=== PATIENT | male | born 1960 | race African-American/Black ===

== ENCOUNTER → 2016-05-12 | Outpatient (CLI) | payer OTHER ==
[2015-08-19 13:15] VITALS: BP 142/94
[~2016-05-12] MED LIST: GABA-586 PO; INSU100I17 SQ; INSU100I27 SQ; INSU100V13 SQ; LISI-334 PO; LISI10TA2 PO; METF500T PO; OXYC-323 PO
--- NOTE | 2016-05-12 15:26 | RAD ---
Right foot, 3 views, 05/12/2016: History: Foot pain There is moderate patchy bony demineralization. No fracture or destructive bony lesion is seen. There are mild scattered degenerative changes. IMPRESSION: 1. Demineralization. 2. No acute bony abnormality is detected.
== END | disposition home or self-care (01) ==
LOC: RAD 10:56
PROVIDERS: ATTEND Nurse Practitioner
DX: M81.8 Other osteoporosis without current pathological fracture (principal)
CPT/HCPCS: 73630

== ENCOUNTER → 2016-06-15 | Day surgery (SDC) | payer OTHER ==
[~2016-06-15] MED LIST changes: +IV RINGERS,LACTATED 1000ML 1,000 ML IV SCH; +LIDOCAINE 2% PF Vial for OR 5 ML VIAL. ONE; +PROPOFOL 20 ML IV ONE
--- NOTE | 2016-06-15 08:55 | PDOC1 ---
HISTORY & PHYSICAL H&P Zeferino Huang [id number] 1960 06/02/2016 03:30 PM 04/12 [place] [employer] [facility], [facility] OUR PATIENTS COME FIRST [address] [place] [address] Ph. [phone] Patient: Zeferino Huang Date of : 1960 Date: 06/02/2016 3:30 PM Visit Type: Consult This 55 year old male presents for Hepatitis C and Screening colonoscopy. History of Present Illness: 1. Hepatitis C Patient has been out of penitentiary for 2 yrs. He was told that he has hepatitis C. He head elevated LFT in April but in May his AST has been normal. He has history of drug abuse before he was in the penitentiary but use to take cocaine and Marijuana. No IV drug abuse. No alcohol abuse. Has diabetes. 2. Screening colonoscopy No prior screening. Denies risk factors. Pertinent negatives include abdominal pain, change in bowel habits, change in stool caliber, constipation, decreased appetite, diarrhea, melena, nausea, rectal bleeding, vomiting, weight gain and weight loss. Additional information: No family history of colon cancer , No family history of Crohn's/colitis and No NSAID/ASA use. PROBLEM LIST: Problem Description Onset Date Chronic Notes Hypertension 06/02/2016 Y PAST MEDICAL/SURGICAL HISTORY (Detailed) Disease/disorder Onset Date Management Date Comments Hernia repair 09/19/2015 Diabetes type 2 1998 Hypertension 11/2014 Medications (Active): Started Medication Directions Instruction Stopped 05/29/2016 gabapentin 300 mg capsule take 1 capsule by oral route at bedtime 04/27/2016 Levemir FlexTouch 100 unit/mL (3 mL) subcutaneous insulin pen inject 14 units by subcutaneous route per prescriber's instructions. 04/27/2016 lisinopril 5 mg tablet take 1 tablet by oral route every day 04/27/2016 metformin 500 mg tablet take 1 tablet by oral route 2 times every day with morning and evening meals 04/27/2016 Novolog Flexpen 100 unit/mL subcutaneous inject 4 units by subcutaneous route three times a day before meals 04/28/2016 Pen Needle 31 gauge x 1/4" insulin injection 4 times daily 05/29/2016 True Metrix Glucose Test Strip check blood sugar tid as instructed E11.22 DM II not controlled insulin 05/29/2016 Ultra Thin Lancets 31 gauge check BS three times daily as instructed True Metrix Glucose machine Allergies: Ingredient Reaction Medication Name Comment NO KNOWN ALLERGIES REVIEW OF SYSTEMS System Neg/Pos Details Constitutional Negative Chills, fever, malaise, weight gain and weight loss. ENMT Negative Sore throat. Eyes Negative Double vision. Respiratory Negative Dyspnea and wheezing. Cardio Negative Chest pain and irregular heartbeat/palpitations. GI Positive See HPI. GI Negative Abdominal pain, change in bowel habits, change in stool caliber, constipation, decreased appetite, diarrhea, melena, nausea, see HPI, rectal bleeding and vomiting. Negative Dysuria and hematuria. Endocrine Negative Cold intolerance and heat intolerance. Psych Negative Anxiety. Integumentary Negative Hives and rash. MS Negative Joint pain. Gen/Lymph Negative Easy bleeding and easy bruising. Allergic/Immuno Negative Food allergies. VITAL SIGNS Time BP mm/Hg Pulse /min Resp /min Temp F Ht ft Ht in Ht cm Wt lb Wt kg BMI kg/ m2 BSA m2 O2 Sat% 3:53 PM 132/78 110 98.1 0.0 70.00 177.80 145.20 65.862 20.83 98 Time Measured by 3:53 PM Katy Gary PHYSICAL EXAM: Exam Findings Details Constitutional Normal Well developed. Eyes Normal Conjunctiva - Right: Normal, Left: Normal. Sclera - Right: Normal, Left: Normal. Nasopharynx Normal Lips/teeth/gums - Normal. Neck Exam Normal Inspection - Normal. Thyroid gland - Normal. Respiratory Normal Inspection - Normal. Auscultation - Normal. Cardiovascular Normal Regular rate and rhythm. No murmurs, gallops, or rubs. Vascular Normal Pulses - Carotids: Normal, Femoral: Normal, Dorsalis pedis: Normal. Abdomen Normal Inspection - Normal. Anterior palpation - No guarding. No abdominal tenderness. No hepatic enlargement. No splenic enlargement. No hernia. No ascites. Skin Normal Inspection - Normal. Extremity Normal No edema. Psychiatric * Oriented to time, place, person and situation. Psychiatric Normal Appropriate mood and effect. The patient was checked out at 4:00 PM by Katy Gary. Assessment/Plan # Detail Type Description 1. Assessment Hep C w/o coma, chronic (B18.2). Patient Plan AFP, Hepatitis profile. HepC viral load and genotype. Fibrosure, Abdominal sonogram. Plan Orders AFP, Fibrosure today, HCV Genotype today, HCV Quant PCR today , HCV Quant-PCR and Hepatitis Profile Acute to be performed today. Further diagnostic evaluations ordered today include(s) Ultrasound exam of abdomen ( complete) to be performed today. He is to schedule a follow-up visit with Analia Valentine MD upon completion of work-up 2. Assessment Screening for colon cancer (Z12.11). Patient Plan schedule colonoscopy at [facility] Plan Orders Further diagnostic evaluations ordered today include(s) Colonoscopy to be performed today. Electronically signed by: Analia Valentine MD 06/03/2016 12:34 PM Document generated by: Analia Valentine 06/03/2016 12:34 PM Felton Smith MD, Family Practice; Leonid Gudino MD Internal Medicine; Mariana Louis MD, Internal Medicine; Kasey Valentine MD Internal Medicine; Analia Valentine MD, Gastroenterology; Scot Caro MD, Rheumatology, S. Roland Jo, Physical Medicine/Rehab JNicky Delvalle APRN ------ 06/15/16 Patient seen and examined. No change in H&P. ANALIA VALENTINE MD Jun 15, 2016 08:55
--- NOTE | 2016-06-15 10:09 | PDOC4 ---
GI OP Report - Dr. Wei Date/Time DATE: 06/15/16 TIME: 10:08 Attending Physician Cortez Wei MD Referring Physician Indications Screening for colorectal malignant neoplasm Pre-Op See the Anesthesia note for documentation of the administered medications Procedures Colonoscopy Findings - Stool in the sigmoid colon, in the descending colon, at the splenic flexure, in the transverse colon and at the hepatic flexure. - The examination was otherwise normal on direct and retroflexion views. - No specimens collected. Plan - Discharge patient to home. - Patient has a contact number available for emergencies. The signs and symptoms of potential delayed complications were discussed with the patient. Return to normal activities tomorrow. Written discharge instructions were provided to the patient. - Resume regular diet. - Continue present medications. - Repeat colonoscopy in 10 years for surveillance. - Return to my office as needed. CORTEZ WEI MD Jun 15, 2016 10:09
[2016-06-15 10:17] VITALS: BP 120/89
== END | disposition home or self-care (01) ==
LOC: ENDOS 07:42
PROVIDERS: ATTEND Internal Medicine Gastroenterology
DX: Z12.11 Encounter for screening for malignant neoplasm of colon (principal); I10 Essential (primary) hypertension; E11.9 Type 2 diabetes mellitus without complications; Z72.89 Other problems related to lifestyle
CPT/HCPCS: 45378; J2704

== ENCOUNTER → 2016-06-23 | Outpatient (CLI) | payer OTHER ==
[2016-06-15 10:17] VITALS: BP 120/89
[~2016-06-23] MED LIST changes: -IV RINGERS,LACTATED 1000ML 1,000 ML IV SCH; -LIDOCAINE 2% PF Vial for OR 5 ML VIAL. ONE; -PROPOFOL 20 ML IV ONE
--- NOTE | 2016-06-23 13:26 | RAD ---
Indication: Hepatitis C. Cholelithiasis. Possible cholecystitis on prior ultrasound. Technique: Ultrasound of the abdomen was performed. Most recent comparison available at this institution is a CT from August 15, 2015 and ultrasound from November 20, 2014. Findings: Visualized pancreas is unremarkable. Aorta is normal caliber. IVC is patent. Liver is normal in size and mildly increased in echogenicity. There is cholelithiasis, 2 large stones including one nonmobile stone near the neck. Gallbladder wall is upper limits of normal in size, 3 mm; there is no pericholecystic fluid. Sonographic Brock sign is reported as negative. Common bile duct is mildly prominent at 7 mm, can be within normal limits in a patient of this age. Kidneys are without hydronephrosis or mass. Spleen is not enlarged. Impression: 1. Cholelithiasis without secondary findings to suggest cholecystitis. If further imaging is warranted, consider hepatobiliary scintigraphy. 2. Mild fatty infiltration of the liver.
== END | disposition home or self-care (01) ==
LOC: US 12:36
PROVIDERS: ATTEND Internal Medicine Gastroenterology
DX: B19.20 Unspecified viral hepatitis C without hepatic coma (principal); K80.20 Calculus of gallbladder without cholecystitis without obstruction; K76.0 Fatty (change of) liver, not elsewhere classified
CPT/HCPCS: 76700

== ENCOUNTER → 2016-07-30 | Outpatient (CLI) | payer OTHER ==
[2016-06-15 10:17] VITALS: BP 120/89
== END | disposition home or self-care (01) ==
LOC: PMGWOUND 10:42
PROVIDERS: ATTEND Emergency Medicine Undersea and Hyperbaric Medicine
DX: E11.621 Type 2 diabetes mellitus with foot ulcer (principal); L97.512 Non-pressure chronic ulcer of other part of right foot with fat layer exposed; E11.40 Type 2 diabetes mellitus with diabetic neuropathy, unspecified; Z72.89 Other problems related to lifestyle
CPT/HCPCS: 11042

== ENCOUNTER → 2016-08-04 | Outpatient (CLI) | payer OTHER ==
[2016-06-15 10:17] VITALS: BP 120/89
== END | disposition home or self-care (01) ==
LOC: PMGWOUND 08:43
PROVIDERS: ATTEND Emergency Medicine Undersea and Hyperbaric Medicine
DX: E11.621 Type 2 diabetes mellitus with foot ulcer (principal); L97.511 Non-pressure chronic ulcer of other part of right foot limited to breakdown of skin; E11.40 Type 2 diabetes mellitus with diabetic neuropathy, unspecified; I10 Essential (primary) hypertension; Z72.89 Other problems related to lifestyle
CPT/HCPCS: 11042

== ENCOUNTER → 2016-08-07 | Outpatient (CLI) | payer OTHER ==
[2016-06-15 10:17] VITALS: BP 120/89
== END | disposition home or self-care (01) ==
LOC: PMGWOUND 11:37
PROVIDERS: ATTEND Preventive Medicine Undersea and Hyperbaric Medicine
DX: E11.621 Type 2 diabetes mellitus with foot ulcer (principal); L97.511 Non-pressure chronic ulcer of other part of right foot limited to breakdown of skin; E11.40 Type 2 diabetes mellitus with diabetic neuropathy, unspecified; I10 Essential (primary) hypertension; Z72.89 Other problems related to lifestyle
CPT/HCPCS: 29445

== ENCOUNTER → 2016-08-13 | Outpatient (CLI) | payer OTHER ==
[2016-06-15 10:17] VITALS: BP 120/89
== END | disposition home or self-care (01) ==
LOC: PMGWOUND 09:39
PROVIDERS: ATTEND Emergency Medicine Undersea and Hyperbaric Medicine
DX: E11.621 Type 2 diabetes mellitus with foot ulcer (principal); L97.512 Non-pressure chronic ulcer of other part of right foot with fat layer exposed; E11.40 Type 2 diabetes mellitus with diabetic neuropathy, unspecified; Z72.89 Other problems related to lifestyle
CPT/HCPCS: 11042; 29445

== ENCOUNTER → 2016-08-18 | Outpatient (CLI) | payer OTHER ==
[2016-06-15 10:17] VITALS: BP 120/89
== END | disposition home or self-care (01) ==
LOC: PMGWOUND 10:15
PROVIDERS: ATTEND Emergency Medicine Undersea and Hyperbaric Medicine
DX: E11.621 Type 2 diabetes mellitus with foot ulcer (principal); L97.512 Non-pressure chronic ulcer of other part of right foot with fat layer exposed; E11.40 Type 2 diabetes mellitus with diabetic neuropathy, unspecified; I10 Essential (primary) hypertension; Z72.89 Other problems related to lifestyle; Z86.19 Personal history of other infectious and parasitic diseases
CPT/HCPCS: 99214

== ENCOUNTER → 2016-08-21 | Outpatient (CLI) | payer OTHER ==
[2016-06-15 10:17] VITALS: BP 120/89
== END | disposition home or self-care (01) ==
LOC: PMGWOUND 09:01
PROVIDERS: ATTEND Preventive Medicine Undersea and Hyperbaric Medicine
DX: E11.621 Type 2 diabetes mellitus with foot ulcer (principal); L97.512 Non-pressure chronic ulcer of other part of right foot with fat layer exposed; E11.40 Type 2 diabetes mellitus with diabetic neuropathy, unspecified; I10 Essential (primary) hypertension; Z72.89 Other problems related to lifestyle
CPT/HCPCS: 99214

== ENCOUNTER → 2016-08-25 | Outpatient (CLI) | payer OTHER ==
[2016-06-15 10:17] VITALS: BP 120/89
== END | disposition home or self-care (01) ==
LOC: PMGWOUND 10:08
PROVIDERS: ATTEND Emergency Medicine Undersea and Hyperbaric Medicine
DX: E11.621 Type 2 diabetes mellitus with foot ulcer (principal); L97.511 Non-pressure chronic ulcer of other part of right foot limited to breakdown of skin; E11.40 Type 2 diabetes mellitus with diabetic neuropathy, unspecified; Z72.89 Other problems related to lifestyle
CPT/HCPCS: 11042

== ENCOUNTER → 2016-09-01 | Outpatient (CLI) | payer OTHER ==
[2016-06-15 10:17] VITALS: BP 120/89
== END | disposition home or self-care (01) ==
LOC: PMGWOUND 09:39
PROVIDERS: ATTEND Emergency Medicine Undersea and Hyperbaric Medicine
DX: E11.621 Type 2 diabetes mellitus with foot ulcer (principal); L97.512 Non-pressure chronic ulcer of other part of right foot with fat layer exposed; I10 Essential (primary) hypertension; E11.40 Type 2 diabetes mellitus with diabetic neuropathy, unspecified; Z72.89 Other problems related to lifestyle
CPT/HCPCS: 11042

== ENCOUNTER → 2016-09-04 | Outpatient (CLI) | payer OTHER ==
[2016-06-15 10:17] VITALS: BP 120/89
== END | disposition home or self-care (01) ==
LOC: PMGWOUND 08:43
PROVIDERS: ATTEND Preventive Medicine Undersea and Hyperbaric Medicine
DX: E11.621 Type 2 diabetes mellitus with foot ulcer (principal); L97.511 Non-pressure chronic ulcer of other part of right foot limited to breakdown of skin; E11.40 Type 2 diabetes mellitus with diabetic neuropathy, unspecified; Z72.89 Other problems related to lifestyle
CPT/HCPCS: 87071; 87075; 87205; 99214

== ENCOUNTER → 2016-09-08 | Outpatient (CLI) | payer OTHER ==
[2016-06-15 10:17] VITALS: BP 120/89
== END | disposition home or self-care (01) ==
LOC: PMGWOUND 11:09
PROVIDERS: ATTEND Emergency Medicine Undersea and Hyperbaric Medicine
DX: E11.621 Type 2 diabetes mellitus with foot ulcer (principal); L97.512 Non-pressure chronic ulcer of other part of right foot with fat layer exposed; E11.40 Type 2 diabetes mellitus with diabetic neuropathy, unspecified; I10 Essential (primary) hypertension; Z72.89 Other problems related to lifestyle
CPT/HCPCS: 11042

== ENCOUNTER → 2016-09-11 | Outpatient (CLI) | payer OTHER ==
[2016-06-15 10:17] VITALS: BP 120/89
== END | disposition home or self-care (01) ==
LOC: PMGWOUND 10:06
PROVIDERS: ATTEND Preventive Medicine Undersea and Hyperbaric Medicine
DX: E11.621 Type 2 diabetes mellitus with foot ulcer (principal); L97.512 Non-pressure chronic ulcer of other part of right foot with fat layer exposed; I10 Essential (primary) hypertension; E11.40 Type 2 diabetes mellitus with diabetic neuropathy, unspecified; Z72.89 Other problems related to lifestyle
CPT/HCPCS: 11042; 11045

== ENCOUNTER → 2016-09-15 | Outpatient (CLI) | payer OTHER ==
[2016-06-15 10:17] VITALS: BP 120/89
== END | disposition home or self-care (01) ==
LOC: PMGWOUND 12:00
PROVIDERS: ATTEND Emergency Medicine Undersea and Hyperbaric Medicine
DX: E11.621 Type 2 diabetes mellitus with foot ulcer (principal); L97.512 Non-pressure chronic ulcer of other part of right foot with fat layer exposed; I10 Essential (primary) hypertension; E11.40 Type 2 diabetes mellitus with diabetic neuropathy, unspecified; Z72.89 Other problems related to lifestyle
CPT/HCPCS: 99214

== ENCOUNTER → 2016-09-22 | Outpatient (CLI) | payer OTHER ==
[2016-06-15 10:17] VITALS: BP 120/89
== END | disposition home or self-care (01) ==
LOC: PMGWOUND 10:17
PROVIDERS: ATTEND Emergency Medicine Undersea and Hyperbaric Medicine
DX: E11.621 Type 2 diabetes mellitus with foot ulcer (principal); L97.512 Non-pressure chronic ulcer of other part of right foot with fat layer exposed; I10 Essential (primary) hypertension; E11.40 Type 2 diabetes mellitus with diabetic neuropathy, unspecified; Z72.89 Other problems related to lifestyle
CPT/HCPCS: 11042

== ENCOUNTER → 2016-09-29 | Outpatient (CLI) | payer OTHER ==
[2016-06-15 10:17] VITALS: BP 120/89
== END | disposition home or self-care (01) ==
LOC: PMGWOUND 10:30
PROVIDERS: ATTEND Emergency Medicine Undersea and Hyperbaric Medicine
DX: E11.621 Type 2 diabetes mellitus with foot ulcer (principal); L97.512 Non-pressure chronic ulcer of other part of right foot with fat layer exposed; E11.40 Type 2 diabetes mellitus with diabetic neuropathy, unspecified; I10 Essential (primary) hypertension; Z72.89 Other problems related to lifestyle
CPT/HCPCS: 11042

== ENCOUNTER → 2017-01-07 | Outpatient (CLI) | payer OTHER ==
[2016-06-15 10:17] VITALS: BP 120/89
--- NOTE | 2017-01-07 11:05 | RAD ---
EXAM: Right foot 3 views. HISTORY: Nonhealing wound. COMPARISON: 05/12/2016. FINDINGS: There is no soft tissue gas. There is no cortical erosion suggestive of acute osteomyelitis. No fractures are identified. Osteopenia is at least mild. Joint spaces and alignment are maintained. IMPRESSION: 1. No evidence of acute osteomyelitis by radiographs.
== END | disposition home or self-care (01) ==
LOC: PMGWOUND 09:33
PROVIDERS: ATTEND Emergency Medicine Undersea and Hyperbaric Medicine
DX: E11.621 Type 2 diabetes mellitus with foot ulcer (principal); L97.512 Non-pressure chronic ulcer of other part of right foot with fat layer exposed; I10 Essential (primary) hypertension; E11.40 Type 2 diabetes mellitus with diabetic neuropathy, unspecified; Z72.89 Other problems related to lifestyle; Z86.19 Personal history of other infectious and parasitic diseases
CPT/HCPCS: 11042; 73630

== ENCOUNTER → 2017-01-11 | Outpatient (CLI) | payer OTHER ==
[2016-06-15 10:17] VITALS: BP 120/89
== END | disposition home or self-care (01) ==
LOC: PMGWOUND 14:47
PROVIDERS: ATTEND Emergency Medicine Undersea and Hyperbaric Medicine
DX: E11.621 Type 2 diabetes mellitus with foot ulcer (principal); L97.512 Non-pressure chronic ulcer of other part of right foot with fat layer exposed; E11.40 Type 2 diabetes mellitus with diabetic neuropathy, unspecified; I10 Essential (primary) hypertension; Z86.19 Personal history of other infectious and parasitic diseases; Z72.89 Other problems related to lifestyle
CPT/HCPCS: 11042

== ENCOUNTER → 2017-01-14 | Outpatient (CLI) | payer OTHER ==
[2016-06-15 10:17] VITALS: BP 120/89
== END | disposition home or self-care (01) ==
LOC: PMGWOUND 09:19
PROVIDERS: ATTEND Emergency Medicine Undersea and Hyperbaric Medicine
DX: E11.621 Type 2 diabetes mellitus with foot ulcer (principal); L97.512 Non-pressure chronic ulcer of other part of right foot with fat layer exposed; E11.40 Type 2 diabetes mellitus with diabetic neuropathy, unspecified; Z72.89 Other problems related to lifestyle
CPT/HCPCS: 99214

== ENCOUNTER → 2017-01-19 | Outpatient (CLI) | payer OTHER ==
[2016-06-15 10:17] VITALS: BP 120/89
== END | disposition home or self-care (01) ==
LOC: PMGWOUND 09:23
PROVIDERS: ATTEND Emergency Medicine Undersea and Hyperbaric Medicine
DX: E11.621 Type 2 diabetes mellitus with foot ulcer (principal); L97.512 Non-pressure chronic ulcer of other part of right foot with fat layer exposed; E11.40 Type 2 diabetes mellitus with diabetic neuropathy, unspecified; I10 Essential (primary) hypertension; Z72.89 Other problems related to lifestyle
CPT/HCPCS: 11042

== ENCOUNTER → 2017-01-22 | Outpatient (CLI) | payer OTHER ==
[2016-06-15 10:17] VITALS: BP 120/89
== END | disposition home or self-care (01) ==
LOC: PMGWOUND 09:32
PROVIDERS: ATTEND Preventive Medicine Undersea and Hyperbaric Medicine
DX: E11.621 Type 2 diabetes mellitus with foot ulcer (principal); L97.512 Non-pressure chronic ulcer of other part of right foot with fat layer exposed; E11.40 Type 2 diabetes mellitus with diabetic neuropathy, unspecified; Z72.89 Other problems related to lifestyle; I10 Essential (primary) hypertension
CPT/HCPCS: 99213

== ENCOUNTER → 2017-01-26 | Outpatient (CLI) | payer OTHER ==
[2016-06-15 10:17] VITALS: BP 120/89
== END | disposition home or self-care (01) ==
LOC: PMGWOUND 09:34
PROVIDERS: ATTEND Emergency Medicine Undersea and Hyperbaric Medicine
DX: E11.621 Type 2 diabetes mellitus with foot ulcer (principal); L97.512 Non-pressure chronic ulcer of other part of right foot with fat layer exposed; I10 Essential (primary) hypertension; E11.40 Type 2 diabetes mellitus with diabetic neuropathy, unspecified; Z72.89 Other problems related to lifestyle
CPT/HCPCS: 11042; 82962

== ENCOUNTER → 2017-01-28 | Outpatient (CLI) | payer OTHER ==
[2016-06-15 10:17] VITALS: BP 120/89
== END | disposition home or self-care (01) ==
LOC: PMGWOUND 12:04
PROVIDERS: ATTEND Emergency Medicine Undersea and Hyperbaric Medicine
DX: E11.621 Type 2 diabetes mellitus with foot ulcer (principal); L97.512 Non-pressure chronic ulcer of other part of right foot with fat layer exposed; E11.40 Type 2 diabetes mellitus with diabetic neuropathy, unspecified; Z72.89 Other problems related to lifestyle
CPT/HCPCS: 99214

== ENCOUNTER → 2017-02-02 | Outpatient (CLI) | payer OTHER ==
[2016-06-15 10:17] VITALS: BP 120/89
== END | disposition home or self-care (01) ==
LOC: PMGWOUND 09:42
PROVIDERS: ATTEND Emergency Medicine Undersea and Hyperbaric Medicine
DX: E11.621 Type 2 diabetes mellitus with foot ulcer (principal); L97.512 Non-pressure chronic ulcer of other part of right foot with fat layer exposed; E11.40 Type 2 diabetes mellitus with diabetic neuropathy, unspecified; I10 Essential (primary) hypertension; Z72.89 Other problems related to lifestyle
CPT/HCPCS: 11042

== ENCOUNTER → 2017-02-04 | Outpatient (CLI) | payer OTHER ==
[2016-06-15 10:17] VITALS: BP 120/89
== END | disposition home or self-care (01) ==
LOC: PMGWOUND 09:35
PROVIDERS: ATTEND Emergency Medicine Undersea and Hyperbaric Medicine
DX: E11.621 Type 2 diabetes mellitus with foot ulcer (principal); L97.512 Non-pressure chronic ulcer of other part of right foot with fat layer exposed; I10 Essential (primary) hypertension; E11.40 Type 2 diabetes mellitus with diabetic neuropathy, unspecified; Z72.89 Other problems related to lifestyle
CPT/HCPCS: 99214

== ENCOUNTER → 2017-02-09 | Outpatient (CLI) | payer OTHER ==
[2016-06-15 10:17] VITALS: BP 120/89
== END | disposition home or self-care (01) ==
LOC: PMGWOUND 09:10
PROVIDERS: ATTEND Emergency Medicine Undersea and Hyperbaric Medicine
DX: E11.621 Type 2 diabetes mellitus with foot ulcer (principal); L97.512 Non-pressure chronic ulcer of other part of right foot with fat layer exposed; I10 Essential (primary) hypertension; E11.40 Type 2 diabetes mellitus with diabetic neuropathy, unspecified; Z72.89 Other problems related to lifestyle
CPT/HCPCS: 97597

== ENCOUNTER → 2017-02-22 | Outpatient (CLI) | payer OTHER ==
[2016-06-15 10:17] VITALS: BP 120/89
== END | disposition home or self-care (01) ==
LOC: PMGWOUND 09:24
PROVIDERS: ATTEND Emergency Medicine Undersea and Hyperbaric Medicine
DX: E11.621 Type 2 diabetes mellitus with foot ulcer (principal); L97.512 Non-pressure chronic ulcer of other part of right foot with fat layer exposed; E11.40 Type 2 diabetes mellitus with diabetic neuropathy, unspecified; I10 Essential (primary) hypertension; Z72.89 Other problems related to lifestyle
CPT/HCPCS: 11042; 29445

== ENCOUNTER → 2017-02-25 | Outpatient (CLI) | payer OTHER ==
[2016-06-15 10:17] VITALS: BP 120/89
== END | disposition home or self-care (01) ==
LOC: PMGWOUND 08:29
PROVIDERS: ATTEND Emergency Medicine Undersea and Hyperbaric Medicine
DX: E11.621 Type 2 diabetes mellitus with foot ulcer (principal); L97.512 Non-pressure chronic ulcer of other part of right foot with fat layer exposed; I10 Essential (primary) hypertension; E11.40 Type 2 diabetes mellitus with diabetic neuropathy, unspecified; Z72.89 Other problems related to lifestyle
CPT/HCPCS: 11042; 29445

== ENCOUNTER → 2017-03-02 | Outpatient (CLI) | payer OTHER ==
[2016-06-15 10:17] VITALS: BP 120/89
== END | disposition home or self-care (01) ==
LOC: PMGWOUND 08:17
PROVIDERS: ATTEND Emergency Medicine Undersea and Hyperbaric Medicine
DX: E11.621 Type 2 diabetes mellitus with foot ulcer (principal); L97.512 Non-pressure chronic ulcer of other part of right foot with fat layer exposed; I10 Essential (primary) hypertension; E11.40 Type 2 diabetes mellitus with diabetic neuropathy, unspecified; Z72.89 Other problems related to lifestyle
CPT/HCPCS: 11042; 29445

== ENCOUNTER → 2017-03-11 | Outpatient (CLI) | payer OTHER ==
[2016-06-15 10:17] VITALS: BP 120/89
== END | disposition home or self-care (01) ==
LOC: PMGWOUND 10:53
PROVIDERS: ATTEND Emergency Medicine Undersea and Hyperbaric Medicine
DX: E11.621 Type 2 diabetes mellitus with foot ulcer (principal); L97.512 Non-pressure chronic ulcer of other part of right foot with fat layer exposed; E11.40 Type 2 diabetes mellitus with diabetic neuropathy, unspecified; I10 Essential (primary) hypertension; Z72.89 Other problems related to lifestyle
CPT/HCPCS: 29445; 97597

== ENCOUNTER → 2017-03-18 | Outpatient (CLI) | payer OTHER ==
[2016-06-15 10:17] VITALS: BP 120/89
== END | disposition home or self-care (01) ==
LOC: PMGWOUND 10:40
PROVIDERS: ATTEND Emergency Medicine Undersea and Hyperbaric Medicine
DX: E11.621 Type 2 diabetes mellitus with foot ulcer (principal); L97.512 Non-pressure chronic ulcer of other part of right foot with fat layer exposed; I10 Essential (primary) hypertension; E11.40 Type 2 diabetes mellitus with diabetic neuropathy, unspecified; Z72.89 Other problems related to lifestyle
CPT/HCPCS: 11042

== ENCOUNTER → 2017-03-23 | Outpatient (CLI) | payer OTHER ==
[2016-06-15 10:17] VITALS: BP 120/89
== END | disposition home or self-care (01) ==
LOC: PMGWOUND 09:28
PROVIDERS: ATTEND Emergency Medicine Undersea and Hyperbaric Medicine
DX: E11.621 Type 2 diabetes mellitus with foot ulcer (principal); L97.512 Non-pressure chronic ulcer of other part of right foot with fat layer exposed; E11.40 Type 2 diabetes mellitus with diabetic neuropathy, unspecified; I10 Essential (primary) hypertension; Z72.89 Other problems related to lifestyle
CPT/HCPCS: 11042

== ENCOUNTER → 2017-03-25 | Outpatient (CLI) | payer OTHER ==
[2016-06-15 10:17] VITALS: BP 120/89
== END | disposition home or self-care (01) ==
LOC: PMGWOUND 09:17
PROVIDERS: ATTEND Emergency Medicine Undersea and Hyperbaric Medicine
DX: E11.621 Type 2 diabetes mellitus with foot ulcer (principal); L97.512 Non-pressure chronic ulcer of other part of right foot with fat layer exposed; E11.40 Type 2 diabetes mellitus with diabetic neuropathy, unspecified; I10 Essential (primary) hypertension; Z72.89 Other problems related to lifestyle
CPT/HCPCS: 97597

== ENCOUNTER → 2017-03-29 | Outpatient (CLI) | payer OTHER ==
[2016-06-15 10:17] VITALS: BP 120/89
== END | disposition home or self-care (01) ==
LOC: PMGWOUND 10:01
PROVIDERS: ATTEND Emergency Medicine Undersea and Hyperbaric Medicine
DX: E11.621 Type 2 diabetes mellitus with foot ulcer (principal); L97.512 Non-pressure chronic ulcer of other part of right foot with fat layer exposed; E11.40 Type 2 diabetes mellitus with diabetic neuropathy, unspecified; I10 Essential (primary) hypertension; Z72.89 Other problems related to lifestyle
CPT/HCPCS: 99214

== ENCOUNTER → 2017-04-01 | Outpatient (CLI) | payer OTHER ==
[2016-06-15 10:17] VITALS: BP 120/89
== END | disposition home or self-care (01) ==
LOC: PMGWOUND 09:49
PROVIDERS: ATTEND Emergency Medicine Undersea and Hyperbaric Medicine
DX: E11.621 Type 2 diabetes mellitus with foot ulcer (principal); L97.512 Non-pressure chronic ulcer of other part of right foot with fat layer exposed; E11.40 Type 2 diabetes mellitus with diabetic neuropathy, unspecified; I10 Essential (primary) hypertension; Z72.89 Other problems related to lifestyle
CPT/HCPCS: 11042

== ENCOUNTER → 2017-04-08 | Outpatient (CLI) | payer OTHER | END | disposition home or self-care (01) | LOC: PMGWOUND 10:09 | DX: E11.621 Type 2 diabetes mellitus with foot ulcer (principal); L97.512 Non-pressure chronic ulcer of other part of right foot with fat layer exposed; E11.40 Type 2 diabetes mellitus with diabetic neuropathy, unspecified; I10 Essential (primary) hypertension; Z72.89 Other problems related to lifestyle | CPT/HCPCS: 97597 ==

== ENCOUNTER → 2017-04-15 | Outpatient (CLI) | payer OTHER | END | disposition home or self-care (01) | LOC: PMGWOUND 08:53 | DX: E11.621 Type 2 diabetes mellitus with foot ulcer (principal); L97.512 Non-pressure chronic ulcer of other part of right foot with fat layer exposed; E11.40 Type 2 diabetes mellitus with diabetic neuropathy, unspecified; I10 Essential (primary) hypertension; Z72.89 Other problems related to lifestyle | CPT/HCPCS: 97597 ==

== ENCOUNTER → 2017-04-19 | Outpatient (CLI) | payer OTHER | END | disposition home or self-care (01) | LOC: PMGWOUND 09:15 | DX: E11.621 Type 2 diabetes mellitus with foot ulcer (principal); L97.512 Non-pressure chronic ulcer of other part of right foot with fat layer exposed; E11.40 Type 2 diabetes mellitus with diabetic neuropathy, unspecified; I10 Essential (primary) hypertension; Z72.89 Other problems related to lifestyle | CPT/HCPCS: 99214 ==

== ENCOUNTER → 2017-04-22 | Outpatient (CLI) | payer OTHER | END | disposition home or self-care (01) | LOC: PMGWOUND 09:30 | DX: E11.621 Type 2 diabetes mellitus with foot ulcer (principal); L97.512 Non-pressure chronic ulcer of other part of right foot with fat layer exposed; E11.40 Type 2 diabetes mellitus with diabetic neuropathy, unspecified; I10 Essential (primary) hypertension; Z72.89 Other problems related to lifestyle | CPT/HCPCS: 11042 ==

== ENCOUNTER → 2017-04-26 | Outpatient (CLI) | payer OTHER | END | disposition home or self-care (01) | LOC: PMGWOUND 09:13 | DX: E11.621 Type 2 diabetes mellitus with foot ulcer (principal); L97.512 Non-pressure chronic ulcer of other part of right foot with fat layer exposed; L84 Corns and callosities; E11.40 Type 2 diabetes mellitus with diabetic neuropathy, unspecified; I10 Essential (primary) hypertension; Z72.89 Other problems related to lifestyle | CPT/HCPCS: 97597 ==

== ENCOUNTER → 2017-04-29 | Outpatient (CLI) | payer OTHER | END | disposition home or self-care (01) | LOC: PMGWOUND 09:24 | DX: E11.621 Type 2 diabetes mellitus with foot ulcer (principal); L97.512 Non-pressure chronic ulcer of other part of right foot with fat layer exposed; L84 Corns and callosities; E11.40 Type 2 diabetes mellitus with diabetic neuropathy, unspecified; I10 Essential (primary) hypertension; Z72.89 Other problems related to lifestyle | CPT/HCPCS: 99214 ==

== ENCOUNTER → 2017-05-04 | Outpatient (CLI) | payer OTHER | END | disposition home or self-care (01) | LOC: PMGWOUND 09:12 | DX: E11.621 Type 2 diabetes mellitus with foot ulcer (principal); L97.512 Non-pressure chronic ulcer of other part of right foot with fat layer exposed; L84 Corns and callosities; E11.40 Type 2 diabetes mellitus with diabetic neuropathy, unspecified; I10 Essential (primary) hypertension; Z72.89 Other problems related to lifestyle | CPT/HCPCS: 11042 ==

== ENCOUNTER → 2017-05-07 | Outpatient (CLI) | payer OTHER | END | disposition home or self-care (01) | LOC: PMGWOUND 09:12 | DX: E11.621 Type 2 diabetes mellitus with foot ulcer (principal); L97.512 Non-pressure chronic ulcer of other part of right foot with fat layer exposed; L84 Corns and callosities; E11.40 Type 2 diabetes mellitus with diabetic neuropathy, unspecified; I10 Essential (primary) hypertension; Z72.89 Other problems related to lifestyle | CPT/HCPCS: 99214 ==

== ENCOUNTER → 2017-05-11 | Outpatient (CLI) | payer OTHER | END | disposition home or self-care (01) | LOC: PMGWOUND 09:23 | DX: E11.621 Type 2 diabetes mellitus with foot ulcer (principal); L97.512 Non-pressure chronic ulcer of other part of right foot with fat layer exposed; L84 Corns and callosities; E11.40 Type 2 diabetes mellitus with diabetic neuropathy, unspecified; I10 Essential (primary) hypertension; Z72.89 Other problems related to lifestyle | CPT/HCPCS: 11042 ==

== ENCOUNTER → 2017-05-18 | Outpatient (CLI) | payer OTHER | END | disposition home or self-care (01) | LOC: PMGWOUND 10:30 | DX: E11.621 Type 2 diabetes mellitus with foot ulcer (principal); L97.512 Non-pressure chronic ulcer of other part of right foot with fat layer exposed; L84 Corns and callosities; E11.40 Type 2 diabetes mellitus with diabetic neuropathy, unspecified; I10 Essential (primary) hypertension; Z72.89 Other problems related to lifestyle | CPT/HCPCS: 11042 ==

== ENCOUNTER → 2017-05-25 | Outpatient (CLI) | payer OTHER | END | disposition home or self-care (01) | LOC: PMGWOUND 09:06 | DX: E11.621 Type 2 diabetes mellitus with foot ulcer (principal); L97.512 Non-pressure chronic ulcer of other part of right foot with fat layer exposed; E11.40 Type 2 diabetes mellitus with diabetic neuropathy, unspecified; L84 Corns and callosities; I10 Essential (primary) hypertension; Z72.89 Other problems related to lifestyle | CPT/HCPCS: 11042 ==

== ENCOUNTER → 2017-06-01 | Outpatient (CLI) | payer OTHER | END | disposition home or self-care (01) | LOC: PMGWOUND 08:35 | DX: E11.621 Type 2 diabetes mellitus with foot ulcer (principal); L84 Corns and callosities; L97.512 Non-pressure chronic ulcer of other part of right foot with fat layer exposed; E11.40 Type 2 diabetes mellitus with diabetic neuropathy, unspecified; I10 Essential (primary) hypertension; Z72.89 Other problems related to lifestyle | CPT/HCPCS: 11042 ==

== ENCOUNTER → 2017-06-08 | Outpatient (CLI) | payer OTHER | END | disposition home or self-care (01) | LOC: PMGWOUND 09:02 | DX: E11.621 Type 2 diabetes mellitus with foot ulcer (principal); L97.512 Non-pressure chronic ulcer of other part of right foot with fat layer exposed; L84 Corns and callosities; E11.40 Type 2 diabetes mellitus with diabetic neuropathy, unspecified; I10 Essential (primary) hypertension; Z72.89 Other problems related to lifestyle | CPT/HCPCS: 11042 ==

== ENCOUNTER → 2017-06-15 | Outpatient (CLI) | payer OTHER | LOC: PMGWOUND 08:50 | DX: E11.621 Type 2 diabetes mellitus with foot ulcer (principal); L97.512 Non-pressure chronic ulcer of other part of right foot with fat layer exposed; E11.40 Type 2 diabetes mellitus with diabetic neuropathy, unspecified; Z72.89 Other problems related to lifestyle | CPT/HCPCS: 11042 ==

== ENCOUNTER → 2017-06-22 | Outpatient (CLI) | payer OTHER | END | disposition home or self-care (01) | LOC: PMGWOUND 08:52 | DX: E11.621 Type 2 diabetes mellitus with foot ulcer (principal); L97.512 Non-pressure chronic ulcer of other part of right foot with fat layer exposed; E11.40 Type 2 diabetes mellitus with diabetic neuropathy, unspecified; I10 Essential (primary) hypertension; L84 Corns and callosities; Z72.89 Other problems related to lifestyle | CPT/HCPCS: 11042 ==

== ENCOUNTER → 2017-06-29 | Outpatient (CLI) | payer OTHER | END | disposition home or self-care (01) | LOC: PMGWOUND 08:50 | DX: E11.621 Type 2 diabetes mellitus with foot ulcer (principal); L97.512 Non-pressure chronic ulcer of other part of right foot with fat layer exposed; I10 Essential (primary) hypertension; E11.40 Type 2 diabetes mellitus with diabetic neuropathy, unspecified; L84 Corns and callosities | CPT/HCPCS: 97597 ==

== ENCOUNTER → 2017-07-06 | Outpatient (CLI) | payer OTHER | END | disposition home or self-care (01) | LOC: PMGWOUND 08:43 | DX: E11.621 Type 2 diabetes mellitus with foot ulcer (principal); L97.512 Non-pressure chronic ulcer of other part of right foot with fat layer exposed; I10 Essential (primary) hypertension; E11.40 Type 2 diabetes mellitus with diabetic neuropathy, unspecified; L84 Corns and callosities | CPT/HCPCS: 11042 ==

== ENCOUNTER → 2017-07-13 | Outpatient (CLI) | payer OTHER | END | disposition home or self-care (01) | LOC: PMGWOUND 08:40 | DX: E11.621 Type 2 diabetes mellitus with foot ulcer (principal); L97.512 Non-pressure chronic ulcer of other part of right foot with fat layer exposed; I10 Essential (primary) hypertension; E11.40 Type 2 diabetes mellitus with diabetic neuropathy, unspecified; L84 Corns and callosities | CPT/HCPCS: 11042 ==

== ENCOUNTER → 2017-07-20 | Outpatient (CLI) | payer OTHER | END | disposition home or self-care (01) | LOC: PMGWOUND 08:46 | DX: E11.621 Type 2 diabetes mellitus with foot ulcer (principal); L97.512 Non-pressure chronic ulcer of other part of right foot with fat layer exposed; I10 Essential (primary) hypertension; E11.40 Type 2 diabetes mellitus with diabetic neuropathy, unspecified; L84 Corns and callosities | CPT/HCPCS: 11042 ==

== ENCOUNTER → 2017-07-23 | Outpatient (CLI) | payer OTHER | END | disposition home or self-care (01) | LOC: PMGWOUND 08:49 | DX: E11.621 Type 2 diabetes mellitus with foot ulcer (principal); L97.512 Non-pressure chronic ulcer of other part of right foot with fat layer exposed; I10 Essential (primary) hypertension; E11.40 Type 2 diabetes mellitus with diabetic neuropathy, unspecified; L84 Corns and callosities | CPT/HCPCS: 99214 ==

== ENCOUNTER → 2017-07-27 | Outpatient (CLI) | payer OTHER | END | disposition home or self-care (01) | LOC: PMGWOUND 09:39 | DX: E11.621 Type 2 diabetes mellitus with foot ulcer (principal); L97.512 Non-pressure chronic ulcer of other part of right foot with fat layer exposed; I10 Essential (primary) hypertension; E11.40 Type 2 diabetes mellitus with diabetic neuropathy, unspecified; L84 Corns and callosities | CPT/HCPCS: 11042; 87071; 87075; 87186; 87205 ==

== ENCOUNTER → 2017-07-29 | Outpatient (CLI) | payer OTHER | END | disposition home or self-care (01) | LOC: PMGWOUND 08:48 | DX: E11.621 Type 2 diabetes mellitus with foot ulcer (principal); L97.512 Non-pressure chronic ulcer of other part of right foot with fat layer exposed; I10 Essential (primary) hypertension; E11.40 Type 2 diabetes mellitus with diabetic neuropathy, unspecified; L84 Corns and callosities | CPT/HCPCS: 11042; 29581 ==

== ENCOUNTER → 2017-08-02 | Outpatient (CLI) | payer OTHER | END | disposition home or self-care (01) | LOC: PMGWOUND 08:57 | DX: E11.621 Type 2 diabetes mellitus with foot ulcer (principal); L97.512 Non-pressure chronic ulcer of other part of right foot with fat layer exposed; I10 Essential (primary) hypertension; E11.40 Type 2 diabetes mellitus with diabetic neuropathy, unspecified; L84 Corns and callosities | CPT/HCPCS: 11042; 29581 ==

== ENCOUNTER → 2017-08-05 | Outpatient (CLI) | payer OTHER | END | disposition home or self-care (01) | LOC: PMGWOUND 10:11 | DX: E11.621 Type 2 diabetes mellitus with foot ulcer (principal); L97.512 Non-pressure chronic ulcer of other part of right foot with fat layer exposed; I10 Essential (primary) hypertension; E11.40 Type 2 diabetes mellitus with diabetic neuropathy, unspecified; L84 Corns and callosities | CPT/HCPCS: 10060; 11042; 87071; 87075; 87186; 87205 ==

== ENCOUNTER → 2017-08-09 | Outpatient (CLI) | payer OTHER | END | disposition home or self-care (01) | LOC: PMGWOUND 08:43 | DX: E11.621 Type 2 diabetes mellitus with foot ulcer (principal); L97.512 Non-pressure chronic ulcer of other part of right foot with fat layer exposed; I10 Essential (primary) hypertension; E11.40 Type 2 diabetes mellitus with diabetic neuropathy, unspecified; L84 Corns and callosities; M65.071 Abscess of tendon sheath, right ankle and foot | CPT/HCPCS: 11042 ==

== ENCOUNTER → 2017-08-12 | Outpatient (CLI) | payer OTHER | END | disposition home or self-care (01) | LOC: PMGWOUND 08:24 | DX: E11.621 Type 2 diabetes mellitus with foot ulcer (principal); L97.512 Non-pressure chronic ulcer of other part of right foot with fat layer exposed; M65.071 Abscess of tendon sheath, right ankle and foot; I10 Essential (primary) hypertension; E11.40 Type 2 diabetes mellitus with diabetic neuropathy, unspecified; Z72.89 Other problems related to lifestyle | CPT/HCPCS: 11042 ==

== ENCOUNTER → 2017-08-16 | Outpatient (CLI) | payer OTHER | END | disposition home or self-care (01) | LOC: PMGWOUND 09:04 | DX: E11.621 Type 2 diabetes mellitus with foot ulcer (principal); L97.512 Non-pressure chronic ulcer of other part of right foot with fat layer exposed; I10 Essential (primary) hypertension; E11.40 Type 2 diabetes mellitus with diabetic neuropathy, unspecified; Z72.89 Other problems related to lifestyle | CPT/HCPCS: 11042 ==

== ENCOUNTER → 2017-08-19 | Outpatient (CLI) | payer OTHER | END | disposition home or self-care (01) | LOC: PMGWOUND 09:30 | DX: E11.621 Type 2 diabetes mellitus with foot ulcer (principal); L97.512 Non-pressure chronic ulcer of other part of right foot with fat layer exposed; I10 Essential (primary) hypertension; E11.40 Type 2 diabetes mellitus with diabetic neuropathy, unspecified; M65.071 Abscess of tendon sheath, right ankle and foot; Z72.89 Other problems related to lifestyle | CPT/HCPCS: 97597 ==

== ENCOUNTER → 2017-08-23 | Outpatient (CLI) | payer OTHER | END | disposition home or self-care (01) | LOC: PMGWOUND 11:02 | DX: E11.621 Type 2 diabetes mellitus with foot ulcer (principal); L97.512 Non-pressure chronic ulcer of other part of right foot with fat layer exposed; I10 Essential (primary) hypertension; E11.40 Type 2 diabetes mellitus with diabetic neuropathy, unspecified; L84 Corns and callosities | CPT/HCPCS: 11042 ==

== ENCOUNTER → 2017-08-26 | Outpatient (CLI) | payer OTHER | END | disposition home or self-care (01) | LOC: PMGWOUND 09:00 | DX: E11.621 Type 2 diabetes mellitus with foot ulcer (principal); L97.512 Non-pressure chronic ulcer of other part of right foot with fat layer exposed; I10 Essential (primary) hypertension; E11.40 Type 2 diabetes mellitus with diabetic neuropathy, unspecified; L84 Corns and callosities | CPT/HCPCS: 11042 ==

== ENCOUNTER → 2017-08-30 | Outpatient (CLI) | payer OTHER | END | disposition home or self-care (01) | LOC: PMGWOUND 08:58 | DX: E11.621 Type 2 diabetes mellitus with foot ulcer (principal); L97.512 Non-pressure chronic ulcer of other part of right foot with fat layer exposed; I10 Essential (primary) hypertension; E11.40 Type 2 diabetes mellitus with diabetic neuropathy, unspecified; L84 Corns and callosities | CPT/HCPCS: 11042 ==

== ENCOUNTER → 2017-09-03 | Outpatient (CLI) | payer OTHER | END | disposition home or self-care (01) | LOC: PMGWOUND 09:10 | DX: E11.621 Type 2 diabetes mellitus with foot ulcer (principal); L97.512 Non-pressure chronic ulcer of other part of right foot with fat layer exposed; I10 Essential (primary) hypertension; E11.40 Type 2 diabetes mellitus with diabetic neuropathy, unspecified | CPT/HCPCS: 99214 ==

== ENCOUNTER → 2017-09-07 | Outpatient (CLI) | payer OTHER | END | disposition home or self-care (01) | LOC: PMGWOUND 09:35 | DX: E11.621 Type 2 diabetes mellitus with foot ulcer (principal); L97.512 Non-pressure chronic ulcer of other part of right foot with fat layer exposed; E11.40 Type 2 diabetes mellitus with diabetic neuropathy, unspecified; I10 Essential (primary) hypertension; L84 Corns and callosities | CPT/HCPCS: 11042 ==

== ENCOUNTER → 2017-09-10 | Outpatient (CLI) | payer OTHER | END | disposition home or self-care (01) | LOC: PMGWOUND 08:54 | DX: E11.621 Type 2 diabetes mellitus with foot ulcer (principal); L97.512 Non-pressure chronic ulcer of other part of right foot with fat layer exposed; E11.40 Type 2 diabetes mellitus with diabetic neuropathy, unspecified; I10 Essential (primary) hypertension; L84 Corns and callosities | CPT/HCPCS: 99213 ==

== ENCOUNTER → 2017-09-14 | Outpatient (CLI) | payer OTHER | END | disposition home or self-care (01) | LOC: PMGWOUND 08:52 | DX: E11.621 Type 2 diabetes mellitus with foot ulcer (principal); L97.512 Non-pressure chronic ulcer of other part of right foot with fat layer exposed; E11.40 Type 2 diabetes mellitus with diabetic neuropathy, unspecified; I10 Essential (primary) hypertension; L84 Corns and callosities | CPT/HCPCS: 11042 ==

== ENCOUNTER → 2017-09-21 | Outpatient (CLI) | payer OTHER | END | disposition home or self-care (01) | LOC: PMGWOUND 08:41 | DX: E11.621 Type 2 diabetes mellitus with foot ulcer (principal); L97.512 Non-pressure chronic ulcer of other part of right foot with fat layer exposed; E11.40 Type 2 diabetes mellitus with diabetic neuropathy, unspecified; I10 Essential (primary) hypertension | CPT/HCPCS: 11042 ==

== ENCOUNTER → 2017-09-28 | Outpatient (CLI) | payer OTHER | END | disposition home or self-care (01) | LOC: PMGWOUND 09:06 | DX: E11.621 Type 2 diabetes mellitus with foot ulcer (principal); L97.512 Non-pressure chronic ulcer of other part of right foot with fat layer exposed; E11.40 Type 2 diabetes mellitus with diabetic neuropathy, unspecified; I10 Essential (primary) hypertension; L84 Corns and callosities | CPT/HCPCS: 11042 ==

== ENCOUNTER → 2017-10-05 | Outpatient (CLI) | payer OTHER | END | disposition home or self-care (01) | LOC: PMGWOUND 09:03 | DX: E11.621 Type 2 diabetes mellitus with foot ulcer (principal); L97.512 Non-pressure chronic ulcer of other part of right foot with fat layer exposed; E11.40 Type 2 diabetes mellitus with diabetic neuropathy, unspecified; I10 Essential (primary) hypertension; L84 Corns and callosities | CPT/HCPCS: 11042 ==

== ENCOUNTER → 2017-10-12 | Outpatient (CLI) | payer OTHER | END | disposition home or self-care (01) | LOC: PMGWOUND 08:21 | DX: E11.621 Type 2 diabetes mellitus with foot ulcer (principal); L97.512 Non-pressure chronic ulcer of other part of right foot with fat layer exposed; E11.40 Type 2 diabetes mellitus with diabetic neuropathy, unspecified; I10 Essential (primary) hypertension; L84 Corns and callosities | CPT/HCPCS: 11042 ==

== ENCOUNTER → 2017-10-19 | Outpatient (CLI) | payer OTHER | END | disposition home or self-care (01) | LOC: PMGWOUND 09:01 | DX: E11.621 Type 2 diabetes mellitus with foot ulcer (principal); L97.512 Non-pressure chronic ulcer of other part of right foot with fat layer exposed; E11.40 Type 2 diabetes mellitus with diabetic neuropathy, unspecified; L84 Corns and callosities; I10 Essential (primary) hypertension | CPT/HCPCS: 11042 ==

== ENCOUNTER → 2017-10-26 | Outpatient (CLI) | payer OTHER | END | disposition home or self-care (01) | LOC: PMGWOUND 09:04 | DX: E11.621 Type 2 diabetes mellitus with foot ulcer (principal); L97.512 Non-pressure chronic ulcer of other part of right foot with fat layer exposed; I10 Essential (primary) hypertension; E11.21 Type 2 diabetes mellitus with diabetic nephropathy; L84 Corns and callosities | CPT/HCPCS: 11042 ==

== ENCOUNTER → 2017-11-02 | Outpatient (CLI) | payer OTHER | END | disposition home or self-care (01) | LOC: PMGWOUND 08:26 | DX: E11.621 Type 2 diabetes mellitus with foot ulcer (principal); L97.512 Non-pressure chronic ulcer of other part of right foot with fat layer exposed; E11.21 Type 2 diabetes mellitus with diabetic nephropathy; E11.40 Type 2 diabetes mellitus with diabetic neuropathy, unspecified; L84 Corns and callosities; I10 Essential (primary) hypertension | CPT/HCPCS: 11042 ==

== ENCOUNTER → 2017-11-09 | Outpatient (CLI) | payer OTHER | END | disposition home or self-care (01) | LOC: PMGWOUND 08:04 | DX: E11.621 Type 2 diabetes mellitus with foot ulcer (principal); L97.512 Non-pressure chronic ulcer of other part of right foot with fat layer exposed; E11.21 Type 2 diabetes mellitus with diabetic nephropathy; E11.40 Type 2 diabetes mellitus with diabetic neuropathy, unspecified; L84 Corns and callosities; I10 Essential (primary) hypertension | CPT/HCPCS: 11042 ==

== ENCOUNTER → 2017-11-16 | Outpatient (CLI) | payer OTHER | END | disposition home or self-care (01) | LOC: PMGWOUND 08:21 | DX: E11.621 Type 2 diabetes mellitus with foot ulcer (principal); L97.512 Non-pressure chronic ulcer of other part of right foot with fat layer exposed; L84 Corns and callosities; I10 Essential (primary) hypertension; E11.21 Type 2 diabetes mellitus with diabetic nephropathy; E11.40 Type 2 diabetes mellitus with diabetic neuropathy, unspecified | CPT/HCPCS: 11042 ==

== ENCOUNTER → 2017-11-23 | Outpatient (CLI) | payer OTHER ==
[2016-06-15 10:17] VITALS: BP 120/89
== END | disposition home or self-care (01) ==
LOC: PMGWOUND 08:13
PROVIDERS: ATTEND Emergency Medicine Undersea and Hyperbaric Medicine
DX: E11.621 Type 2 diabetes mellitus with foot ulcer (principal); L97.512 Non-pressure chronic ulcer of other part of right foot with fat layer exposed; E11.40 Type 2 diabetes mellitus with diabetic neuropathy, unspecified; E11.21 Type 2 diabetes mellitus with diabetic nephropathy; I10 Essential (primary) hypertension; L84 Corns and callosities
CPT/HCPCS: 11042

== ENCOUNTER → 2017-11-30 | Outpatient (CLI) | payer OTHER ==
[2016-06-15 10:17] VITALS: BP 120/89
== END | disposition home or self-care (01) ==
LOC: PMGWOUND 08:21
PROVIDERS: ATTEND Emergency Medicine Undersea and Hyperbaric Medicine
DX: E11.621 Type 2 diabetes mellitus with foot ulcer (principal); L97.512 Non-pressure chronic ulcer of other part of right foot with fat layer exposed; E11.40 Type 2 diabetes mellitus with diabetic neuropathy, unspecified; E11.21 Type 2 diabetes mellitus with diabetic nephropathy; I10 Essential (primary) hypertension; L84 Corns and callosities
CPT/HCPCS: 11042

== ENCOUNTER → 2017-12-07 | Outpatient (CLI) | payer OTHER ==
[2016-06-15 10:17] VITALS: BP 120/89
== END | disposition home or self-care (01) ==
LOC: PMGWOUND 10:08
PROVIDERS: ATTEND Emergency Medicine Undersea and Hyperbaric Medicine
DX: E11.621 Type 2 diabetes mellitus with foot ulcer (principal); L97.512 Non-pressure chronic ulcer of other part of right foot with fat layer exposed; E11.21 Type 2 diabetes mellitus with diabetic nephropathy; E11.40 Type 2 diabetes mellitus with diabetic neuropathy, unspecified; I95.9 Hypotension, unspecified; L84 Corns and callosities; I10 Essential (primary) hypertension; F10.19 Alcohol abuse with unspecified alcohol-induced disorder; Y90.9 Presence of alcohol in blood, level not specified
CPT/HCPCS: 11042

== ENCOUNTER → 2017-12-21 | Outpatient (CLI) | payer OTHER ==
[2016-06-15 10:17] VITALS: BP 120/89
== END | disposition home or self-care (01) ==
LOC: PMGWOUND 08:27
PROVIDERS: ATTEND Emergency Medicine Undersea and Hyperbaric Medicine
DX: E11.621 Type 2 diabetes mellitus with foot ulcer (principal); L97.512 Non-pressure chronic ulcer of other part of right foot with fat layer exposed; E11.40 Type 2 diabetes mellitus with diabetic neuropathy, unspecified; L84 Corns and callosities; I95.89 Other hypotension
CPT/HCPCS: 11042; 82962

== ENCOUNTER → 2018-01-11 | Outpatient (CLI) | payer OTHER ==
[2016-06-15 10:17] VITALS: BP 120/89
== END | disposition home or self-care (01) ==
LOC: PMGWOUND 08:35
PROVIDERS: ATTEND Emergency Medicine Undersea and Hyperbaric Medicine
DX: E11.621 Type 2 diabetes mellitus with foot ulcer (principal); L97.512 Non-pressure chronic ulcer of other part of right foot with fat layer exposed; E11.40 Type 2 diabetes mellitus with diabetic neuropathy, unspecified; E11.21 Type 2 diabetes mellitus with diabetic nephropathy; L84 Corns and callosities; I10 Essential (primary) hypertension
CPT/HCPCS: 11042

== ENCOUNTER → 2018-01-18 | Outpatient (CLI) | payer OTHER ==
[2016-06-15 10:17] VITALS: BP 120/89
== END ==
LOC: PMGWOUND 08:21
PROVIDERS: ATTEND Emergency Medicine Undersea and Hyperbaric Medicine
DX: E11.621 Type 2 diabetes mellitus with foot ulcer (principal); L97.512 Non-pressure chronic ulcer of other part of right foot with fat layer exposed; E11.40 Type 2 diabetes mellitus with diabetic neuropathy, unspecified; E11.21 Type 2 diabetes mellitus with diabetic nephropathy; L84 Corns and callosities; I10 Essential (primary) hypertension
CPT/HCPCS: 11042

== ENCOUNTER → 2018-01-25 | Outpatient (CLI) | payer OTHER ==
[2016-06-15 10:17] VITALS: BP 120/89
== END | disposition home or self-care (01) ==
LOC: PMGWOUND 08:54
PROVIDERS: ATTEND Emergency Medicine Undersea and Hyperbaric Medicine
DX: E11.621 Type 2 diabetes mellitus with foot ulcer (principal); L97.512 Non-pressure chronic ulcer of other part of right foot with fat layer exposed; E11.21 Type 2 diabetes mellitus with diabetic nephropathy; E11.40 Type 2 diabetes mellitus with diabetic neuropathy, unspecified; L84 Corns and callosities; I10 Essential (primary) hypertension
CPT/HCPCS: 11042

== ENCOUNTER → 2018-02-01 | Outpatient (CLI) | payer OTHER ==
[2016-06-15 10:17] VITALS: BP 120/89
== END | disposition home or self-care (01) ==
LOC: PMGWOUND 08:39
PROVIDERS: ATTEND Emergency Medicine Undersea and Hyperbaric Medicine
DX: E11.621 Type 2 diabetes mellitus with foot ulcer (principal); L97.512 Non-pressure chronic ulcer of other part of right foot with fat layer exposed; E11.21 Type 2 diabetes mellitus with diabetic nephropathy; E11.40 Type 2 diabetes mellitus with diabetic neuropathy, unspecified; L84 Corns and callosities; I10 Essential (primary) hypertension
CPT/HCPCS: 11042

== ENCOUNTER → 2018-02-08 | Outpatient (CLI) | payer OTHER ==
[2016-06-15 10:17] VITALS: BP 120/89
== END | disposition home or self-care (01) ==
LOC: PMGWOUND 09:26
PROVIDERS: ATTEND Emergency Medicine Undersea and Hyperbaric Medicine
DX: E11.621 Type 2 diabetes mellitus with foot ulcer (principal); L97.512 Non-pressure chronic ulcer of other part of right foot with fat layer exposed; E11.40 Type 2 diabetes mellitus with diabetic neuropathy, unspecified; E11.21 Type 2 diabetes mellitus with diabetic nephropathy; L84 Corns and callosities; I10 Essential (primary) hypertension
CPT/HCPCS: 11042

== ENCOUNTER 2020-01-04 16:29 | Emergency (ER) | payer OTHER ==
[~2020-01-04] VITALS: Ht 177.8 cm; Wt 53.0 kg
[~2020-01-04 16:29] MED LIST changes: -GABA-586 PO; +GABA300C18 PO; -OXYC-323 PO; +OXYC1TAB15 PO
[2020-01-04 18:32] VITALS: BP 172/100
--- NOTE | 2020-01-04 18:36 | PHYS DOC ---
Past Medical History Past Medical History: Diabetes-Type II, Hypertension, Other Past Surgical History: No Surgical History, Other Smoking Status: Never Smoker Alcohol Use: None Drug Use: None General Adult EDM: Chief Complaint: CATHETER CHANGE HPI: HPI: Patient is a 59 year old male presents for evaluation of Mendoza leaking. Patient states he has indwelling Mendoza catheter for 1 year due to urinary retention. He states current Mendoza was placed approximately 2 months ago. Patient states he woke up this morning with some suprapubic discomfort and Mendoza leaking around his penis. Patient currently has no complaints. After examination plan is to change patient's Mendoza. Review of Systems: Review of Systems: Constitutional: Denies fever or chills. [] Eyes: Denies change in visual acuity. [] HENT: Denies nasal congestion or sore throat. [] Respiratory: Denies cough or shortness of breath. [] Cardiovascular: Denies chest pain or edema. [] GI: Denies abdominal pain, nausea, vomiting, bloody stools or diarrhea. [] : Denies dysuria. [] Positive Mendoza leaking Musculoskeletal: Denies back pain or joint pain. [] Integument: Denies rash. [] Neurologic: Denies headache, focal weakness or sensory changes. [] Endocrine: Denies polyuria or polydipsia. [] Lymphatic: Denies swollen glands. [] Psychiatric: Denies depression or anxiety. [] Heart Score: Risk Factors: Risk Factors: DM, Current or recent (<one month) smoker, HTN, HLP, family history of CAD, obesity. Risk Scores: Score 0 - 3: 2.5% MACE over next 6 weeks - Discharge Home Score 4 - 6: 20.3% MACE over next 6 weeks - Admit for Clinical Observation Score 7 - 10: 72.7% MACE over next 6 weeks - Early Invasive Strategies Allergies: Allergies: Allergies Coded Allergies Type Severity Reaction Last Updated Verified I S O L A T I O N *CONTACT* Allergy Unknown 08/10/17 Yes No Known Medication Allergies Allergy Unknown 08/10/17 Yes Physical Exam: PE: Constitutional: Well developed, well nourished, no acute distress, non-toxic appearance. [] HENT: Normocephalic, atraumatic, bilateral external ears normal, oropharynx moist, no oral exudates, nose normal. [] Eyes: PERRLA, EOMI, conjunctiva normal, no discharge. [] Neck: Normal range of motion, no tenderness, supple, no stridor. [] Cardiovascular:Heart rate regular rhythm, no murmur [] Lungs & Thorax: Bilateral breath sounds clear to auscultation [] Abdomen: Bowel sounds normal, soft, no tenderness, no masses, no pulsatile masses. [] Skin: Warm, dry, no erythema, no rash. [] Back: No tenderness, no CVA tenderness. [] Extremities: No tenderness, no cyanosis, no clubbing, ROM intact, no edema. [] Neurologic: Alert and oriented X 3, normal motor function, normal sensory function, no focal deficits noted. [] Psychologic: Affect normal, judgement normal, mood normal. [] Current Patient Data: Vital Signs: Vital Signs Date Time Temp Pulse Resp B/P (MAP) Pulse Ox O2 Delivery O2 Flow Rate FiO2 01/04/20 17:50 97.7 83 18 112/75 (87) 100 Room Air 97.7 EKG: EKG: [] Radiology/Procedures: Radiology/Procedures: [] Course & Med Decision Making: Course & Med Decision Making Pertinent Labs and Imaging studies reviewed. (See chart for details) [] Mendoza catheter was changed by nursing no complications. Patient was discharged home with an extra Mendoza bag. Yovana Disclaimer: Yovana Disclaimer: This electronic medical record was generated, in whole or in part, using a voice recognition dictation system. Departure Departure Impression: Primary Impression: Mendoza catheter problem Disposition: HOME, SELF-CARE Condition: STABLE Referrals: NO PCP (PCP) Patient Instructions: Mendoza Catheter Care, Adult Justicifation of Admission Dx: Justifications for Admission: Justification of Admission Dx: N/A LA GAFFNEY DO Jan 04, 2020 18:36
== END 2020-01-04 19:03 | disposition home or self-care (01) ==
LOC: ER 16:29
DX: T83.031A Leakage of indwelling urethral catheter, initial encounter (principal); E11.9 Type 2 diabetes mellitus without complications; I10 Essential (primary) hypertension; Z91.041 Radiographic dye allergy status; Y84.6 Urinary catheterization as the cause of abnormal reaction of the patient, or of later complication, without mention of misadventure at the time of the procedure; Y92.89 Other specified places as the place of occurrence of the external cause
CPT/HCPCS: 51702; 99284

== ENCOUNTER 2020-02-12 10:33 | Inpatient (IN) | payer OTHER ==
[~2020-02-12] VITALS: Ht 177.8 cm; Wt 55.9 kg
--- NOTE | 2020-02-12 11:27 | PHYS DOC ---
Past Medical History Past Medical History: Diabetes-Type II, Hypertension, Other Additional Past Medical Histor: RETENTION Past Surgical History: Other Additional Past Surgical Histo: "I'VE HAD 5 OR 6 SURGERIES BUT I DON'T KNOW WHAT THEY WERE FOR OR NAMES" Smoking Status: Never Smoker Alcohol Use: None Drug Use: None General Adult EDM: Chief Complaint: CATHETER CHANGE HPI: HPI: Patient is a 59 year old male who presents with wanting his Mendoza catheter changed as he has not had a change since January 03 and before that it was 2 months prior. Has had a Mendoza catheter for over a year due to urinary retention that was placed at of which he was following up at . He recently moved back from [place]. He states that he does not have a PCP here yet. He does go to wound care for wounds on his feet from his diabetes tomorrow. He states he has not been to wound care for over a month. Patient states that before he moved to [place] he was getting dialysis 3 times a week at [facility]. He states when he moved to [place] they stated that his diabetes was not checked and his blood work was fine and he no longer needed dialysis. He states in [place] they told him to come back in 2 weeks and checked his blood work and if he did need dialysis they said to come back in 1 month and he stated that he did not need dialysis so he is not on dialysis in a year. He states that his diabetes is " in check" and he is not taking any diabetic medications for a year. He states that he will call tomorrow to get a urology appointment. Review of Systems: Review of Systems: Constitutional: Denies fever or chills. [] Eyes: Denies change in visual acuity. [] HENT: Denies nasal congestion or sore throat. [] Respiratory: Denies cough or shortness of breath. [] Cardiovascular: Denies chest pain or edema. [] GI: Lower abdominal abdominal bloating and pain, denies nausea, vomiting, bloody stools or diarrhea. [] : Denies dysuria. Mendoza catheter change in urinary odor with urinary color change [] Musculoskeletal: Denies back pain or joint pain. [] Integument: Denies rash. [] Neurologic: Denies headache, focal weakness or sensory changes. [] Endocrine: Denies polyuria or polydipsia. [] Lymphatic: Denies swollen glands. [] Psychiatric: Denies depression or anxiety. [] Heart Score: Risk Factors: Risk Factors: DM, Current or recent (<one month) smoker, HTN, HLP, family history of CAD, obesity. Risk Scores: Score 0 - 3: 2.5% MACE over next 6 weeks - Discharge Home Score 4 - 6: 20.3% MACE over next 6 weeks - Admit for Clinical Observation Score 7 - 10: 72.7% MACE over next 6 weeks - Early Invasive Strategies Allergies: Allergies: Allergies Coded Allergies Type Severity Reaction Last Updated Verified I S O L A T I O N *CONTACT* Allergy Unknown 08/10/17 Yes No Known Medication Allergies Allergy Unknown 08/10/17 Yes Physical Exam: PE: Constitutional: Well developed, well nourished, no acute distress, non-toxic appearance. [] HENT: Normocephalic, atraumatic, bilateral external ears normal, oropharynx moist, no oral exudates, nose normal. [] Eyes: PERRLA, EOMI, conjunctiva normal, no discharge. [] Neck: Normal range of motion, no tenderness, supple, no stridor. [] Cardiovascular:Heart rate regular rhythm, no murmur [] Lungs & Thorax: Bilateral breath sounds clear to auscultation [] Abdomen: Bowel sounds normal, soft, low mid bloated and taut, low mid tenderness, no masses, no pulsatile masses. Mendoza catheter in place with brown odorous urine. Skin: Warm, dry, no erythema, no rash. [] Back: No tenderness, no CVA tenderness. [] Extremities: No tenderness, no cyanosis, no clubbing, ROM intact, no edema. [] Neurologic: Alert and oriented X 3, normal motor function, normal sensory function, no focal deficits noted. [] Psychologic: Affect normal, judgement normal, mood normal. [] Current Patient Data: Vital Signs: Vital Signs Date Time Temp Pulse Resp B/P (MAP) Pulse Ox O2 Delivery O2 Flow Rate FiO2 02/12/20 10:50 98.1 99 16 150/89 (109) 99 Room Air 98.1 EKG: EK and read by Dr. Thomas as sinus rhythm and no STEMI [] Radiology/Procedures: Radiology/Procedures: [] Impression: [facility] [address] [place] [address] IMAGING REPORT Signed PATIENT: ALISA VILLARREAL ACCOUNT: [id number] : 1960 LOCATION: ER AGE: 59 SEX: M EXAM STATUS: REG ER ORD. PHYSICIAN: MARION HWANG APRN REASON: lower abd pain, diarrhea PROCEDURE: CT ABDOMEN PELVIS WO CONTRAST EXAM: CT Abdomen and Pelvis without IV contrast INDICATION: Reason: lower abd pain, diarrhea / Spl. Instructions: WO CONTRAST PER ED / History: TECHNIQUE: Multi-detector row CT images were acquired from the lung bases through the abdomen and pelvis without the use of IV contrast. Sagittal and coronal images were acquired from the transaxial data. All CT scans performed at this facility utilize dose optimization techniques as appropriate to the exam, including the following: Automated exposure control and adjustment of the mA and/or KV according to patient size (this includes techniques or standardized protocols for targeted exams where dose is indication/reason for exam). ORAL CONTRAST: None COMPARISON: None FINDINGS: The absence of IV contrast limits evaluation of soft tissue pathology. LOWER CHEST: Unremarkable LIVER: Unremarkable BILIARY SYSTEM: Gallbladder contains large calcified stones, at least 2, measuring 2.3 and 3.0 cm.. Bile ducts are not dilated. PANCREAS: Unremarkable SPLEEN: Unremarkable ADRENALS: Unremarkable KIDNEYS & URETERS: Unremarkable BLADDER: Urinary bladder contains a Mendoza catheter and demonstrates diffuse urinary bladder wall thickening. REPRODUCTIVE ORGANS: Unremarkable GASTROINTESTINAL: Multiple fluid-filled small bowel loops, nondistended. Pelvis is not well seen. No findings of acute appendicitis. MESENTERY/PERITONEUM/RETROPERITONEUM: Unremarkable VASCULAR: Unremarkable LYMPH NODES: No adenopathy OSSEOUS & SOFT TISSUES: Unremarkable IMPRESSION: 1. CT findings compatible with acute cystitis. 2. Fluid-filled bowel loops, compatible with an acute diarrheal illness in the appropriate clinical context. No bowel obstruction or perforation. Electronically signed by: Anderson Emanuel MD (02/12/2020 2:26 PM) [facility] [place] DICTATED and SIGNED BY: ANDERSON EMANUEL MD DATE: 02/12/20 1426 [facility] [address] [place] [address] IMAGING REPORT Signed PATIENT: ALISA VILLARREAL ACCOUNT: [id number] : 1960 LOCATION: ER AGE: 59 SEX: M EXAM STATUS: REG ER ORD. PHYSICIAN: MARION HWANG APRN REASON: fluid overload PROCEDURE: PORTABLE CHEST 1V EXAMINATION: PORTABLE CHEST 1V CLINICAL HISTORY: Fluid overload EXAM DATE/TIME: 02/12/2020 1:55 PM COMPARISON: 11/17/2014 FINDINGS: Lines, Tubes, and Devices: None. Cardiomediastinal Silhouette: Normal heart size. Aortic atherosclerotic calcification. Lungs and Pleura: No evidence of focal airspace consolidation. No visualized pleural effusion, however, the costophrenic angles are excluded from the image. Pulmonary vasculature unremarkable. Bones and Soft Tissues: No acute osseous abnormality. IMPRESSION: No evidence of acute cardiopulmonary abnormality or significant interval change. Electronically signed by: Lito Taylor DO (02/12/2020 2:49 PM) [id number] DICTATED and SIGNED BY: LITO TAYLOR DO DATE: 02/12/20 1449 Course & Med Decision Making: Course & Med Decision Making Pertinent Labs and Imaging studies reviewed. (See chart for details) See HPI. Abdomen is soft but hard and slightly tender to palpation to lower abdomen. Lower abdomen is hard and distended. He states that the Mendoza catheter has been leaking out around his penis and his urine has recently turned dark brown. He states that his abdomen has been distended and hard since 2 days ago. He denies fever, nausea, vomiting, back pain, cough, chest pain, shortness of air, dizziness, headache, syncope, focal weakness, numbness or tingling. Alert and oriented x4. Speaks in full complete sentences. Ambulatory with a steady gait. Patient is very thin and frail. Vital signs are within normal limits. Other history is diabetic foot wounds, intractable abdominal pain, hypertension, DKA, inguinal hernia, diabetes. [] I spoke to Dr. Persaud with nephrology she states to give him fluids and they will watch him in his urine output and redo his blood work in the morning. I have spoken to Dr. Ruiz for admission. Yovana Disclaimer: Yovana Disclaimer: This electronic medical record was generated, in whole or in part, using a voice recognition dictation system. Departure Departure Impression: Primary Impression: Acute renal failure Qualified Codes: N17.9 - Acute kidney failure, unspecified Disposition: 09 ADMITTED INPT THIS HOSP Admitting Physician: PALLVAI Condition: STABLE Referrals: NO PCP (PCP) MARION HWANG [employer] Feb 12, 2020 11:27
[2020-02-12] MEDS ORDERED: IOHEXOL 300 MG/ML 100ML VIAL. IV ONE (11:45)
[2020-02-12] MEDS ORDERED: IOHEXOL 300 MG/ML 100ML VIAL. ONE (11:50)
[2020-02-12] MEDS ORDERED: CONTRAST GIVEN. MC PRN (12:00)
[2020-02-12 12:57] LABS: BILIRUBIN,URINE NEGATIVE (NEG); CLARITY,URINE TURBID; COLOR,URINE RED; NITRITE,URINE NEGATIVE (NEG); PH,URINE 7.5 (<5.0-8.0); PROTEIN,URINE >=300 mg/dL (NEG-TRACE); UROBILINOGEN,URINE 0.2 mg/dL (0.2 mg/dL)
[2020-02-12 12:59] LABS: AMPHETAMINE/METHAMPHETAMINE NEG (NEG); BARBITURATES NEG (NEG); BENZODIAZEPINES NEG (NEG); CANNABINOIDS NEG (NEG); COCAINE NEG (NEG); METHADONE NEG (NEG); OPIATES NEG (NEG); PHENCYCLIDINE NEG (NEG)
[2020-02-12 13:08] LABS: BACTERIA,URINE MANY /HPF (0-FEW); RBC,URINE FIELD OBSCURED /HPF (0-2); WBC,URINE TNTC /HPF (0-4)
[2020-02-12 13:25] LABS: BASO % 0 % (0-3); EOS % 0 % (0-3); HEMATOCRIT 32.3 % (39.0-53.0); HEMOGLOBIN 10.9 g/dL (13.0-17.5); LYMPH # 0.6 x10^3/uL (1.0-4.8); LYMPH % 8 % (24-48); MEAN CORPUSCULAR HEMOGLOBIN 29 pg (25-35); MEAN CORPUSCULAR HGB CONC 34 g/dL (31-37); MEAN CORPUSCULAR VOLUME 85 fL (79-100); MONO # 0.6 x10^3/uL (0.0-1.1); MONO % 9 % (0-9); NEUT % 83 % (31-73); PLATELET COUNT 112 x10^3/uL (140-400); RED CELL DISTRIBUTION WIDTH 15.5 % (11.5-14.5); WHITE BLOOD COUNT 7.3 x10^3/uL (4.0-11.0)
[2020-02-12 13:31] LABS: CALCIUM 8.2 mg/dL (8.5-10.1); CREATININE 4.8 mg/dL (0.7-1.3); POTASSIUM 5.3 mmol/L (3.5-5.1)
[2020-02-12 13:37] LABS: PROTHROMBIN TIME PATIENT 14.9 SEC (11.7-14.0)
[2020-02-12 13:43] LABS: ALBUMIN 2.8 g/dL (3.4-5.0); ALBUMIN/GLOBULIN RATIO 0.7 (1.0-1.7); TOTAL BILIRUBIN 1.3 mg/dL (0.2-1.0); TOTAL PROTEIN 6.8 g/dL (6.4-8.2)
[2020-02-12] MEDS ORDERED: cefTRIAXone IV Push 1 GM VIAL. IVP ONE (13:45)
[2020-02-12] MEDS ORDERED: IV NORMAL SALINE 1000ML BAG 1,000 ML IV ONE ×2 (13:45→14:30)
--- NOTE | 2020-02-12 14:29 | RAD ---
EXAM: CT Abdomen and Pelvis without IV contrast INDICATION: Reason: lower abd pain, diarrhea / Spl. Instructions: WO CONTRAST PER ED / History: TECHNIQUE: Multi-detector row CT images were acquired from the lung bases through the abdomen and pelvis without the use of IV contrast. Sagittal and coronal images were acquired from the transaxial data. All CT scans performed at this facility utilize dose optimization techniques as appropriate to the exam, including the following: Automated exposure control and adjustment of the mA and/or KV according to patient size (this includes techniques or standardized protocols for targeted exams where dose is indication/reason for exam). ORAL CONTRAST: None COMPARISON: None FINDINGS: The absence of IV contrast limits evaluation of soft tissue pathology. LOWER CHEST: Unremarkable LIVER: Unremarkable BILIARY SYSTEM: Gallbladder contains large calcified stones, at least 2, measuring 2.3 and 3.0 cm.. Bile ducts are not dilated. PANCREAS: Unremarkable SPLEEN: Unremarkable ADRENALS: Unremarkable KIDNEYS & URETERS: Unremarkable BLADDER: Urinary bladder contains a Mendoza catheter and demonstrates diffuse urinary bladder wall thickening. REPRODUCTIVE ORGANS: Unremarkable GASTROINTESTINAL: Multiple fluid-filled small bowel loops, nondistended. Pelvis is not well seen. No findings of acute appendicitis. MESENTERY/PERITONEUM/RETROPERITONEUM: Unremarkable VASCULAR: Unremarkable LYMPH NODES: No adenopathy OSSEOUS & SOFT TISSUES: Unremarkable IMPRESSION: 1. CT findings compatible with acute cystitis. 2. Fluid-filled bowel loops, compatible with an acute diarrheal illness in the appropriate clinical context. No bowel obstruction or perforation. Electronically signed by: Karo Emanuel MD (02/12/2020 2:26 PM) [facility] [place]
--- NOTE | 2020-02-12 14:41 | PDOC1 ---
History and Physical Date of Admission Date of Admission DATE: 02/12/20 TIME: 14:39 Identification/Chief Complaint Chief Complaint seen in ER with acute on chronic renal failure 59 year old male who presents with wanting his Mendoza catheter changed as he has not had a change since January 03 and before that it was 2 months prior. Has had a Mendoza catheter for over a year due to urinary retention that was placed at of which he was following up at . He recently moved back from [place]. he does not have a PCP here yet. He does go to wound care for wounds on his feet from his diabetes 02-12 He states he has not been to wound care for over a month. states that before he moved to [place] he was getting dialysis 3 times a week at [facility]. He states when he moved to [place] they stated that his diabetes was not checked and his blood work was fine and he no longer needed dialysis. states in [place] they told him to come back in 2 weeks and checked his blood work and if he did need dialysis they said to come back in 1 month and he stated that he did not need dialysis so he is not on dialysis in a year. Past Medical History Past Medical History Past Medical History Past Medical History Past Medical History: Diabetes-Type II, Hypertension, Other Additional Past Medical Histor: RETENTION Past Surgical History: Other Additional Past Surgical Histo: "I'VE HAD 5 OR 6 SURGERIES BUT I DON'T KNOW WHAT THEY WERE FOR OR NAMES" Smoking Status: stopped drug use 30 yrs ago Alcohol Use: None Drug Use: None fhx htn Cardiovascular: HTN CENTRAL NERVOUS SYSTEM: Periperal neuropathy Hepatobiliary: Hep A/B/C Endocrine: Diabetes Past Surgical History Past Surgical History: Other Family History Family History: Cancer, Diabetes, Hypertension, Stroke Social History Smoke: No ALCOHOL: none Drugs: None, Other Current Problem List Problem List Problems Medical Problems: (1) Acute renal failure Status: Acute Current Medications Current Medications Current Medications Iohexol (Omnipaque 300 Mg/ml) 75 ml 1X ONCE IV ; Start 02/12/20 at 11:45; Stop 02/12/20 at 11:49; Status DC Info (CONTRAST GIVEN -- Rx MONITORING) 1 each PRN DAILY PRN MC SEE COMMENTS; Start 02/12/20 at 12:00; Stop 02/14/20 at 11:59 Iohexol (Omnipaque 300 Mg/ml) 100 ml STK-MED ONCE .ROUTE ; Start 02/12/20 at 11:50; Stop 02/12/20 at 11:50; Status DC Ceftriaxone Sodium (Rocephin) 1 gm 1X ONCE IVP Last administered on 02/12/20at 14:15; Start 02/12/20 at 13:45; Stop 02/12/20 at 13:46; Status DC Sodium Chloride 1,000 ml @ 1,000 mls/hr 1X ONCE IV Last administered on 02/12/20at 14:15; Start 02/12/20 at 13:45; Stop 02/12/20 at 14:44 Sodium Chloride 1,000 ml @ 1,000 mls/hr 1X ONCE IV ; Start 02/12/20 at 14:30; Stop 02/12/20 at 15:29 Active Scripts Active Glucophage (Metformin Hcl) 500 Mg Tablet 500 Mg PO BIDWMEALS Novolog Flexpen (Insulin Aspart) 300 Units/3 Ml Insuln.pen 14 Units SQ TIDAC Neurontin (Gabapentin) 300 Mg Capsule 300 Mg PO TID Reported Percocet 5-325 Mg Tablet (Oxycodone/Acetaminophen) 1 Each Tablet 1-2 Tab PO Q4HRS Levemir (Insulin Detemir) 100 Unit/1 Ml Vial 20 Unit SQ HS Lisinopril 20 Mg Tablet 1 Tab PO DAILY Allergies Allergies: Coded Allergies: I S O L A T I O N *CONTACT* (Verified Allergy, Unknown, 08/10/17) mrsa foot No Known Medication Allergies (Verified Allergy, Unknown, 08/10/17) ROS Review of System Review of Systems: Constitutional: Denies fever or chills. [] Eyes: Denies change in visual acuity. [] HENT: Denies nasal congestion or sore throat. [] Respiratory: Denies cough or shortness of breath. [] Cardiovascular: Denies chest pain or edema. [] GI: Lower abdominal abdominal bloating and pain, denies nausea, vomiting, bloody stools or diarrhea. [] : Denies dysuria. Mendoza catheter change in urinary odor with urinary color change [] Musculoskeletal: Denies back pain or joint pain. [] Integument: Denies rash. [] Neurologic: Denies headache, focal weakness or sensory changes. [] Endocrine: Denies polyuria or polydipsia. [] Lymphatic: Denies swollen glands. [] Psychiatric: Denies depression or anxiety. [] 14 pt ros otherwise neg General: YES: Fatigue PSYCHOLOGICAL ROS: No: Anxiety, Behavioral Disorder, Concentration difficultie, Decreased libido, Depression, Disorientation, Hallucinations, Hostility, Irritablity, Memory difficulties, Mood Swings, Obsessive thoughts, Physical abuse, Sexual abuse, Sleep disturbances, Suicidal ideation, Other ALLERGY AND IMMUNOLOGY: No: Hives, Insect Bite Sensitivity, Itchy/Watery Eyes, Nasal Congestion, Post Nasal Drip, Seasonal Allergies, Other Cardiovascular: No Chest Pain, No Palpitations, No Orthopnea, No Paroxysmal Noc. Dyspnea, No Edema, No Lt Headedness, No Other Genitourinary: YES Retention Musculoskeletal: No Gait Disturbance, No Joint Pain, No Joint Stiffness, No Joint Swelling, No Muscle Pain, No Muscular Weakness, No Pain In:, No Swelling In:, No Other Neurological: No Behavorial Changes, No Bowel/Bladder ControlChng, No Confusion, No Dizziness, No Gait Disturbance, No Headaches, No Impaired Coord/balance, No Memory Loss, No Numbness/Tingling, No Seizures, No Speech Problems, No Tremors, No Visual Changes, No Weakness, No Other Physical Exam Physical Exam Constitutional: Well developed, well nourished, no acute distress, non-toxic appearance. [] HENT: Normocephalic, atraumatic, bilateral external ears normal, oropharynx m oist, no oral exudates, nose normal. [] Eyes: PERRLA, EOMI, conjunctiva normal, no discharge. [] Neck: Normal range of motion, no tenderness, supple, no stridor. [] Cardiovascular:Heart rate regular rhythm, no murmur [] Lungs & Thorax: Bilateral breath sounds clear to auscultation [] Abdomen: Bowel sounds normal, soft, low mid bloated and taut, low mid tenderness, no masses, no pulsatile masses. Mendoza catheter in place with brown odorous urine. Skin: Warm, dry, no erythema, no rash. [] Back: No tenderness, no CVA tenderness. [] Extremities: No tenderness, no cyanosis, no clubbing, ROM intact, no edema. [] Neurologic: Alert and oriented X 3, normal motor function, normal sensory function, no focal deficits noted. [] Psychologic: Affect normal, judgment normal, mood normal. [] General: Alert, Oriented X3, Cooperative, No acute distress HEENT: EOMI Lungs: Clear to auscultation, Normal air movement Heart: no gallops Abdomen: Soft Rectal Exam: not examined Extremities: No cyanosis Neuro: Normal speech, Cranial nerves 3-12 NL Psych/Mental Status: Mental status NL, Mood NL Vitals Vitals Vital Signs Date Time Temp Pulse Resp B/P (MAP) Pulse Ox O2 Delivery O2 Flow Rate FiO2 02/12/20 10:50 98.1 99 16 150/89 (109) 99 Room Air 98.1 Labs Labs Laboratory Tests Test 02/12/20 12:15 02/12/20 12:48 Urine Collection Type U cath Urine Color Red Urine Clarity Turbid Urine pH 7.5 (<5.0-8.0) Urine Specific [place] 1.015 (1.000-1.030) Urine Protein >=300 mg/dL (NEG-TRACE) Urine Glucose (UA) Negative mg/dL (NEG) Urine Ketones (Stick) Negative mg/dL (NEG) Urine Blood Large (NEG) Urine Nitrite Negative (NEG) Urine Bilirubin Negative (NEG) Urine Urobilinogen Dipstick 0.2 mg/dL (0.2 mg/dL) Urine Leukocyte Esterase Large (NEG) Urine RBC Field obscured /HPF (0-2) Urine WBC Tntc /HPF (0-4) Urine Squamous Epithelial Cells None /LPF Urine Bacteria Many /HPF (0-FEW) Urine Opiates Screen Neg (NEG) Urine Methadone Screen Neg (NEG) Urine Barbiturates Neg (NEG) Urine Phencyclidine Screen Neg (NEG) Urine Amphetamine/Methamphetamine Neg (NEG) Urine Benzodiazepines Screen Neg (NEG) Urine Cocaine Screen Neg (NEG) Urine Cannabinoids Screen Neg (NEG) Urine Ethyl Alcohol Neg (NEG) White Blood Count 7.3 x10^3/uL (4.0-11.0) Red Blood Count 3.80 x10^6/uL (4.30-5.70) Hemoglobin 10.9 g/dL (13.0-17.5) Hematocrit 32.3 % (39.0-53.0) Mean Corpuscular Volume 85 fL (79-100) Mean Corpuscular Hemoglobin 29 pg (25-35) Mean Corpuscular Hemoglobin Concent 34 g/dL (31-37) Red Cell Distribution Width 15.5 % (11.5-14.5) Platelet Count 112 x10^3/uL (140-400) Neutrophils (%) (Auto) 83 % (31-73) Lymphocytes (%) (Auto) 8 % (24-48) Monocytes (%) (Auto) 9 % (0-9) Eosinophils (%) (Auto) 0 % (0-3) Basophils (%) (Auto) 0 % (0-3) Neutrophils # (Auto) 6.0 x10^3/uL (1.8-7.7) Lymphocytes # (Auto) 0.6 x10^3/uL (1.0-4.8) Monocytes # (Auto) 0.6 x10^3/uL (0.0-1.1) Eosinophils # (Auto) 0.0 x10^3/uL (0.0-0.7) Basophils # (Auto) 0.0 x10^3/uL (0.0-0.2) Prothrombin Time 14.9 SEC (11.7-14.0) Prothromb Time International Ratio 1.2 (0.8-1.1) Sodium Level 139 mmol/L (136-145) Potassium Level 5.3 mmol/L (3.5-5.1) Chloride Level 110 mmol/L (98-107) Carbon Dioxide Level 13 mmol/L (21-32) Anion Gap 16 (6-14) Blood Urea Nitrogen 71 mg/dL (8-26) Creatinine 4.8 mg/dL (0.7-1.3) Estimated GFR (Cockcroft-Gault) 15.0 BUN/Creatinine Ratio 15 (6-20) Glucose Level 100 mg/dL (70-99) Lactic Acid Level 0.8 mmol/L (0.4-2.0) Calcium Level 8.2 mg/dL (8.5-10.1) Total Bilirubin 1.3 mg/dL (0.2-1.0) Aspartate Amino Transf (AST/SGOT) 25 U/L (15-37) Alanine Aminotransferase (ALT/SGPT) 31 U/L (16-63) Alkaline Phosphatase 65 U/L (46-116) Troponin I Quantitative < 0.017 ng/mL (0.000-0.055) Total Protein 6.8 g/dL (6.4-8.2) Albumin 2.8 g/dL (3.4-5.0) Albumin/Globulin Ratio 0.7 (1.0-1.7) Lipase 44 U/L (73-393) Acetone Level Neg (NEG) Laboratory Tests Test 02/12/20 12:15 02/12/20 12:48 Urine Collection Type U cath Urine Color Red Urine Clarity Turbid Urine pH 7.5 (<5.0-8.0) Urine Specific [place] 1.015 (1.000-1.030) Urine Protein >=300 mg/dL (NEG-TRACE) Urine Glucose (UA) Negative mg/dL (NEG) Urine Ketones (Stick) Negative mg/dL (NEG) Urine Blood Large (NEG) Urine Nitrite Negative (NEG) Urine Bilirubin Negative (NEG) Urine Urobilinogen Dipstick 0.2 mg/dL (0.2 mg/dL) Urine Leukocyte Esterase Large (NEG) Urine RBC Field obscured /HPF (0-2) Urine WBC Tntc /HPF (0-4) Urine Squamous Epithelial Cells None /LPF Urine Bacteria Many /HPF (0-FEW) Urine Opiates Screen Neg (NEG) Urine Methadone Screen Neg (NEG) Urine Barbiturates Neg (NEG) Urine Phencyclidine Screen Neg (NEG) Urine Amphetamine/Methamphetamine Neg (NEG) Urine Benzodiazepines Screen Neg (NEG) Urine Cocaine Screen Neg (NEG) Urine Cannabinoids Screen Neg (NEG) Urine Ethyl Alcohol Neg (NEG) White Blood Count 7.3 x10^3/uL (4.0-11.0) Red Blood Count 3.80 x10^6/uL (4.30-5.70) Hemoglobin 10.9 g/dL (13.0-17.5) Hematocrit 32.3 % (39.0-53.0) Mean Corpuscular Volume 85 fL (79-100) Mean Corpuscular Hemoglobin 29 pg (25-35) Mean Corpuscular Hemoglobin Concent 34 g/dL (31-37) Red Cell Distribution Width 15.5 % (11.5-14.5) Platelet Count 112 x10^3/uL (140-400) Neutrophils (%) (Auto) 83 % (31-73) Lymphocytes (%) (Auto) 8 % (24-48) Monocytes (%) (Auto) 9 % (0-9) Eosinophils (%) (Auto) 0 % (0-3) Basophils (%) (Auto) 0 % (0-3) Neutrophils # (Auto) 6.0 x10^3/uL (1.8-7.7) Lymphocytes # (Auto) 0.6 x10^3/uL (1.0-4.8) Monocytes # (Auto) 0.6 x10^3/uL (0.0-1.1) Eosinophils # (Auto) 0.0 x10^3/uL (0.0-0.7) Basophils # (Auto) 0.0 x10^3/uL (0.0-0.2) Prothrombin Time 14.9 SEC (11.7-14.0) Prothromb Time International Ratio 1.2 (0.8-1.1) Sodium Level 139 mmol/L (136-145) Potassium Level 5.3 mmol/L (3.5-5.1) Chloride Level 110 mmol/L (98-107) Carbon Dioxide Level 13 mmol/L (21-32) Anion Gap 16 (6-14) Blood Urea Nitrogen 71 mg/dL (8-26) Creatinine 4.8 mg/dL (0.7-1.3) Estimated GFR (Cockcroft-Gault) 15.0 BUN/Creatinine Ratio 15 (6-20) Glucose Level 100 mg/dL (70-99) Lactic Acid Level 0.8 mmol/L (0.4-2.0) Calcium Level 8.2 mg/dL (8.5-10.1) Total Bilirubin 1.3 mg/dL (0.2-1.0) Aspartate Amino Transf (AST/SGOT) 25 U/L (15-37) Alanine Aminotransferase (ALT/SGPT) 31 U/L (16-63) Alkaline Phosphatase 65 U/L (46-116) Troponin I Quantitative < 0.017 ng/mL (0.000-0.055) Total Protein 6.8 g/dL (6.4-8.2) Albumin 2.8 g/dL (3.4-5.0) Albumin/Globulin Ratio 0.7 (1.0-1.7) Lipase 44 U/L (73-393) Acetone Level Neg (NEG) Images Images DPOA REVIEW 18 MIN to patient portal What Is a Power of Customer Assistance Representative? A power of tax attorney (POA) is a legal document giving one person (the agent or [id number]) the power to act for another person (the principal). The agent can have broad legal authority or limited authority to make legal decisions about the principal's property, finances or medical care. The power of tax attorney is frequently used in the event of a principal's illness or disability, or when the principal can't be present to sign necessary legal documents for financial transactions. A power of tax attorney can end for a number of reasons, such as when the principal dies, the principal revokes it, a court invalidates it, the principal divorces their spouse, who happens to be the agent, or the agent can no longer carry out the outlined responsibilities. Conventional POAs lapse when the creator becomes incapacitated, but a durable POA remains in force to enable the agent to manage the creators affairs, and a springing POA comes into effect only if and when the creator of the POA becomes incapacitated. A medical or healthcare POA enables an agent to make medical decisions on behalf of an incapacitated person. [place] Takeaways A power of tax attorney (POA) is a legal document giving one person, the agent or [id number] the power to act for another person, the principal. The agent can have broad legal authority or limited authority to make decisions about the principal's property, finances or medical care. The power of tax attorney is often used when a principal becomes ill or disabled, or when they can't be present to sign necessary legal documents for financial transactions. Understanding Power of Customer Assistance Representative A power of tax attorney should be considered when planning for long-term care. There are different types of POAs that fall under either a general power of tax attorney or limited power of tax attorney. A general power of tax attorney acts on behalf of the principal in any and all matters, as allowed by the state. The agent under a general POA agreement may be authorized to take care of issues such as handling bank accounts, signing checks, selling property and assets like stocks, f A limited power of tax attorney gives the agent the power to act on behalf of the principal in specific matters or events. For example, the limited POA may explicitly state that the agent is only allowed to manage the principal's half-way accounts. A limited POA may also be limited to a specific period of time (e.g., if the principal will be out of the country for, say, two years). Most hanson of tax attorney documents allow an agent to represent the principal in all property and financial matters as long as the principals mental state of mind is good. If a situation occurs where the principal becomes incapable of making decisions for him or herself, the POA agreement would automatically end. However, someone who wants the POA to remain in effect after the persons health deteriorates would need to sign a durable power of tax attorney (DPOA). What is an advance directive? An advance directive is a legal document that says how you want to be cared for if you are unable to make decisions. You can include what medical treatments you would want and who you would trust to make decisions for you. An advance directive can also include other legal documents. A living will is a list of treatment preferences. It can be used to indicate whether you would want cardiopulmonary resuscitation (CPR), tube feedings, a breathing machine, or certain medicines, like antibiotics. The durable power of tax attorney for health care document identifies the person you would want to make medical decisions for you. This person is also called a proxy. Your proxy should be familiar with your values and wishes. How do I get started? You can get advance directive documents for your state from your doctor's office or from http://www.caringinfo.org. Review the forms, and ask your doctor if you have any questions. Pick a person to be your proxy, and talk it over with that person. EXAM: CT Abdomen and Pelvis without IV contrast INDICATION: Reason: lower abd pain, diarrhea / Spl. Instructions: WO CONTRAST PER ED / History: TECHNIQUE: Multi-detector row CT images were acquired from the lung bases through the abdomen and pelvis without the use of IV contrast. Sagittal and coronal images were acquired from the transaxial data. All CT scans performed at this facility utilize dose optimization techniques as appropriate to the exam, including the following: Automated exposure control and adjustment of the mA and/or KV according to patient size (this includes techniques or standardized protocols for targeted exams where dose is indication/reason for exam). ORAL CONTRAST: None COMPARISON: None FINDINGS: The absence of IV contrast limits evaluation of soft tissue pathology. LOWER CHEST: Unremarkable LIVER: Unremarkable BILIARY SYSTEM: Gallbladder contains large calcified stones, at least 2, measuring 2.3 and 3.0 cm.. Bile ducts are not dilated. PANCREAS: Unremarkable SPLEEN: Unremarkable ADRENALS: Unremarkable KIDNEYS & URETERS: Unremarkable BLADDER: Urinary bladder contains a Mendoza catheter and demonstrates diffuse urinary bladder wall thickening. REPRODUCTIVE ORGANS: Unremarkable GASTROINTESTINAL: Multiple fluid-filled small bowel loops, nondistended. Pelvis is not well seen. No findings of acute appendicitis. MESENTERY/PERITONEUM/RETROPERITONEUM: Unremarkable VASCULAR: Unremarkable LYMPH NODES: No adenopathy OSSEOUS & SOFT TISSUES: Unremarkable IMPRESSION: 1. CT findings compatible with acute cystitis. 2. Fluid-filled bowel loops, compatible with an acute diarrheal illness in the appropriate clinical context. No bowel obstruction or perforation. Electronically signed by: Anderson Emanuel MD (02/12/2020 2:26 PM) [facility] [place] DICTATED and SIGNED BY: ANDERSON EMANUEL MD DATE: 02/12/20 1426 VTE Prophylaxis Ordered VTE Prophylaxis Devices: Yes VTE Pharmacological Prophylaxi: Yes Assessment/Plan Assessment/Plan IMPRESSION: 1. ACUTE RENAL INJURY 2. CT findings compatible with acute cystitis., HX URINARY RETENTION 3. Fluid-filled bowel loops, compatible with an acute diarrheal illness No bowel obstruction or perforation. PLAN ADMIT Consult nephrology iv fluid support Justifications for Admission Other Justification SHARON OROZCO MD Feb 12, 2020 14:40
[2020-02-12] MEDS ORDERED: ALBUTEROL SULFATE 2.5 MG/3 ML NEBU. NEB PRN (14:45)
[2020-02-12] MEDS ORDERED: DOCUSATE SODIUM 100 MG CAPSULE. PO PRN (14:45)
[2020-02-12] MEDS ORDERED: 0.9 % SODIUM CHLORIDE 10 ML DISP.SYRIN. IV PRN (14:45)
[2020-02-12] MEDS ORDERED: ACETAMINOPHEN 325 MG TABLET. PO PRN (14:45)
[2020-02-12] MEDS ORDERED: cloNIDine HCL 0.1 MG TABLET PO PRN (14:45)
[2020-02-12] MEDS ORDERED: ONDANSETRON PF 4 MG/2 ML VIAL. IV PRN (14:45)
[2020-02-12] MEDS ORDERED: guaiFENesin ORAL 200 MG/10 ML LIQUID. PO PRN (14:45)
--- NOTE | 2020-02-12 14:52 | RAD ---
EXAMINATION: PORTABLE CHEST 1V CLINICAL HISTORY: Fluid overload EXAM DATE/TIME: 02/12/2020 1:55 PM COMPARISON: 11/17/2014 FINDINGS: Lines, Tubes, and Devices: None. Cardiomediastinal Silhouette: Normal heart size. Aortic atherosclerotic calcification. Lungs and Pleura: No evidence of focal airspace consolidation. No visualized pleural effusion, however, the costophrenic angles are excluded from the image. Pulmonary vasculature unremarkable. Bones and Soft Tissues: No acute osseous abnormality. IMPRESSION: No evidence of acute cardiopulmonary abnormality or significant interval change. Electronically signed by: Lito Marin DO (02/12/2020 2:49 PM) [id number]
[2020-02-12] MEDS ORDERED: DEXTROSE 50% 25 GM / 50ML DISP.SYRIN. IV PRN (15:00)
[2020-02-12 16:05] VITALS: BP 166/99
--- NOTE | 2020-02-12 16:45 | EKG ---
[facility] [address] [place] [address] Test Date: 2020-02-12 Test Time: 11:48:50 Pat Name: ALISA VILLARREAL Department: Room: 210 1 Gender: M [employer] Professor: : 1960 Requested By: MARION HWANG Order Number: [id number] Reading MD: Latrell Fuentes Measurements Intervals [place] Rate: 94 P: 27 ME: 128 QRS: 70 QRSD: 72 T: 66 QT: 336 QTc: 420 Interpretive Statements SINUS RHYTHM LEFT ATRIAL ABNORMALITY ABNORMAL ECG Electronically Signed On 02-13-2020 10:32:55 TACK PULLER by Latrell Fuentes
[2020-02-12] MEDS: INSULIN LISPRO 300 UNITS/3 ML VIAL. SQ SCH (17:00)
[2020-02-12] MEDS ORDERED: LOPE-101 PO (17:30)
[2020-02-12] MEDS: IV NORMAL SALINE 1000ML BAG 1,000 ML IV SCH (18:17)
[2020-02-12 19:30] VITALS: BP 179/99
[2020-02-12] MEDS: LOPERAMIDE 2 MG CAPSULE PO SCH (21:44)
[2020-02-12] MEDS: HEPARIN for SUB-Q USE 5,000 UNIT/ML VIAL. SQ SCH (21:46)
[2020-02-12 22:23] VITALS: BP 137/81
[2020-02-13 03:15] VITALS: BP 140/79
[2020-02-13] MEDS: IV NORMAL SALINE 1000ML BAG 1,000 ML IV SCH ×3 (04:40→20:13)
[2020-02-13] MEDS: HEPARIN for SUB-Q USE 5,000 UNIT/ML VIAL. SQ SCH ×3 (06:07→21:00)
[2020-02-13 07:00] VITALS: BP 168/75
[2020-02-13] MEDS: INSULIN LISPRO 300 UNITS/3 ML VIAL. SQ SCH ×3 (08:00→17:00)
[2020-02-13] MEDS: LOPERAMIDE 2 MG CAPSULE PO SCH ×2 (08:09→20:11)
--- NOTE | 2020-02-13 10:15 | PDOC ---
PROGRESS NOTES Date of Service: DATE: 02/13/20 TIME: 10:15 Chief Complaint Chief Complaint IMPRESSION: 1. CT findings compatible with acute cystitis. 2. Fluid-filled bowel loops, compatible with an acute diarrheal illness in the appropriate clinical context. No bowel obstruction or perforation. Electronically signed by: Anderson Emanuel MD (02/12/2020 2:26 PM) [facility] [place]CT[place] and SIGNED BY: ANDERSON EMANUEL MD DATE: 02/12/20 1426 VTE Prophylaxis Ordered VTE Prophylaxis Devices: Yes VTE Pharmacological Prophylaxi: Yes IMPRESSION Assessment/Plan IMPRESSION: 1. ACUTE RENAL INJURY 2. CT findings compatible with acute cystitis., HX URINARY RETENTION 3. Fluid-filled bowel loops, compatible with an acute diarrheal illness No bowel obstruction or perforation. 4. HEMATURIA PLAN ADMIT Consult nephrology iv fluid support renal panel today IV ROCEPHIN D/W RN Justifications for Admission Justifications for Admission Other Justification History of Present Illness History of Present Illness Identification/Chief Complaint Chief Complaint seen in ER with acute on chronic renal failure 59 year old male who presents with wanting his Mendoza catheter changed as he has not had a change since Dec and before that it was 2 months prior. Has had a Mendoza catheter for over a year due to urinary retention that was placed at of which he was following up at . He recently moved back from [place]. he does not have a PCP here yet. He does go to wound care for wounds on his feet from his diabetes 02-12 He states he has not been to wound care for over a month. states that before he moved to [place] he was getting dialysis 3 times a week at [facility]. He states when he moved to [place] they stated that his diabetes was not checked and his blood work was fine and he no longer needed dialysis. states in [place] they told him to come back in 2 weeks and checked his blood work and if he did need dialysis they said to come back in 1 month and he stated that he did not need dialysis so he is not on dialysis in a year. Past Medical History Past Medical History Past Medical History Past Medical History Past Medical History: Diabetes-Type II, Hypertension, Other Additional Past Medical Histor: RETENTION Past Surgical History: Other Additional Past Surgical Histo: "I'VE HAD 5 OR 6 SURGERIES BUT I DON'T KNOW WHAT THEY WERE FOR OR NAMES" Smoking Status: stopped drug use 30 yrs ago Alcohol Use: None Drug Use: None fhx htn Cardiovascular: HTN CENTRAL NERVOUS SYSTEM: Periperal neuropathy Hepatobiliary: Hep A/B/C Endocrine: Diabetes Past Surgical History Past Surgical History: Other Family History Family History: Cancer, Diabetes, Hypertension, Stroke Social History Smoke: No ALCOHOL: none Drugs: None, Other Current Problem List Problem List Problems Medical Problems: (1) Acute renal failure Status: Acute Vitals Vitals Vital Signs Date Time Temp Pulse Resp B/P (MAP) Pulse Ox O2 Delivery O2 Flow Rate FiO2 02/13/20 07:00 97.9 83 18 168/75 (106) 100 Room Air 97.9 Physical Exam General: Alert, Oriented X3, Cooperative, No acute distress Heart: Regular rate Lungs: Clear Abdomen: Normal bowel sounds, Soft, No tenderness Extremities: No cyanosis Labs LABS EXAM: CT Abdomen and Pelvis without IV contrast INDICATION: Reason: lower abd pain, diarrhea / Spl. Instructions: WO CONTRAST PER ED / History: TECHNIQUE: Multi-detector row CT images were acquired from the lung bases through the abdomen and pelvis without the use of IV contrast. Sagittal and coronal images were acquired from the transaxial data. All CT scans performed at this facility utilize dose optimization techniques as appropriate to the exam, including the following: Automated exposure control and adjustment of the mA and/or KV according to patient size (this includes techniques or standardized protocols for targeted exams where dose is indication/reason for exam). ORAL CONTRAST: None COMPARISON: None FINDINGS: The absence of IV contrast limits evaluation of soft tissue pathology. LOWER CHEST: Unremarkable LIVER: Unremarkable BILIARY SYSTEM: Gallbladder contains large calcified stones, at least 2, measuring 2.3 and 3.0 cm.. Bile ducts are not dilated. PANCREAS: Unremarkable SPLEEN: Unremarkable ADRENALS: Unremarkable KIDNEYS & URETERS: Unremarkable BLADDER: Urinary bladder contains a Mendoza catheter and demonstrates diffuse urinary bladder wall thickening. REPRODUCTIVE ORGANS: Unremarkable GASTROINTESTINAL: Multiple fluid-filled small bowel loops, nondistended. Pelvis is not well seen. No findings of acute appendicitis. MESENTERY/PERITONEUM/RETROPERITONEUM: Unremarkable VASCULAR: Unremarkable LYMPH NODES: No adenopathy OSSEOUS & SOFT TISSUES: Unremarkable IMPRESSION: 1. CT findings compatible with acute cystitis. 2. Fluid-filled bowel loops, compatible with an acute diarrheal illness in the appropriate clinical context. No bowel obstruction or perforation. Electronically signed by: Anderson Emanuel MD (02/12/2020 2:26 PM) [facility] [place]CTATED and SIGNED BY: ANDERSON EMANUEL MD DATE: 02/12/20 1426 Laboratory Tests Test 02/12/20 12:15 02/12/20 12:48 02/12/20 17:03 02/12/20 20:36 Urine Collection Type U cath Urine Color Red Urine Clarity Turbid Urine pH 7.5 (<5.0-8.0) Urine Specific [place] 1.015 (1.000-1.030) Urine Protein >=300 mg/dL (NEG-TRACE) Urine Glucose (UA) Negative mg/dL (NEG) Urine Ketones (Stick) Negative mg/dL (NEG) Urine Blood Large (NEG) Urine Nitrite Negative (NEG) Urine Bilirubin Negative (NEG) Urine Urobilinogen Dipstick 0.2 mg/dL (0.2 mg/dL) Urine Leukocyte Esterase Large (NEG) Urine RBC Field obscured /HPF (0-2) Urine WBC Tntc /HPF (0-4) Urine Squamous Epithelial Cells None /LPF Urine Bacteria Many /HPF (0-FEW) Urine Opiates Screen Neg (NEG) Urine Methadone Screen Neg (NEG) Urine Barbiturates Neg (NEG) Urine Phencyclidine Screen Neg (NEG) Urine Amphetamine/Methamphetamine Neg (NEG) Urine Benzodiazepines Screen Neg (NEG) Urine Cocaine Screen Neg (NEG) Urine Cannabinoids Screen Neg (NEG) Urine Ethyl Alcohol Neg (NEG) White Blood Count 7.3 x10^3/uL (4.0-11.0) Red Blood Count 3.80 x10^6/uL (4.30-5.70) Hemoglobin 10.9 g/dL (13.0-17.5) Hematocrit 32.3 % (39.0-53.0) Mean Corpuscular Volume 85 fL (79-100) Mean Corpuscular Hemoglobin 29 pg (25-35) Mean Corpuscular Hemoglobin Concent 34 g/dL (31-37) Red Cell Distribution Width 15.5 % (11.5-14.5) Platelet Count 112 x10^3/uL (140-400) Neutrophils (%) (Auto) 83 % (31-73) Lymphocytes (%) (Auto) 8 % (24-48) Monocytes (%) (Auto) 9 % (0-9) Eosinophils (%) (Auto) 0 % (0-3) Basophils (%) (Auto) 0 % (0-3) Neutrophils # (Auto) 6.0 x10^3/uL (1.8-7.7) Lymphocytes # (Auto) 0.6 x10^3/uL (1.0-4.8) Monocytes # (Auto) 0.6 x10^3/uL (0.0-1.1) Eosinophils # (Auto) 0.0 x10^3/uL (0.0-0.7) Basophils # (Auto) 0.0 x10^3/uL (0.0-0.2) Prothrombin Time 14.9 SEC (11.7-14.0) Prothromb Time International Ratio 1.2 (0.8-1.1) Sodium Level 139 mmol/L (136-145) Potassium Level 5.3 mmol/L (3.5-5.1) Chloride Level 110 mmol/L (98-107) Carbon Dioxide Level 13 mmol/L (21-32) Anion Gap 16 (6-14) Blood Urea Nitrogen 71 mg/dL (8-26) Creatinine 4.8 mg/dL (0.7-1.3) Estimated GFR (Cockcroft-Gault) 15.0 BUN/Creatinine Ratio 15 (6-20) Glucose Level 100 mg/dL (70-99) Lactic Acid Level 0.8 mmol/L (0.4-2.0) Calcium Level 8.2 mg/dL (8.5-10.1) Total Bilirubin 1.3 mg/dL (0.2-1.0) Aspartate Amino Transf (AST/SGOT) 25 U/L (15-37) Alanine Aminotransferase (ALT/SGPT) 31 U/L (16-63) Alkaline Phosphatase 65 U/L (46-116) Troponin I Quantitative < 0.017 ng/mL (0.000-0.055) Total Protein 6.8 g/dL (6.4-8.2) Albumin 2.8 g/dL (3.4-5.0) Albumin/Globulin Ratio 0.7 (1.0-1.7) Lipase 44 U/L (73-393) Acetone Level Neg (NEG) Glucose (Fingerstick) 135 mg/dL (70-99) 123 mg/dL (70-99) Test 02/13/20 08:01 Glucose (Fingerstick) 85 mg/dL (70-99) Assessment and Plan Assessmemt and Plan Problems Medical Problems: (1) Acute renal failure Status: Acute Comment Review of Relevant I have reviewed the following items kenneth (where applicable) has been applied. Labs Laboratory Tests Test 02/12/20 12:15 02/12/20 12:48 02/12/20 17:03 02/12/20 20:36 Urine Collection Type U cath Urine Color Red Urine Clarity Turbid Urine pH 7.5 (<5.0-8.0) Urine Specific [place] 1.015 (1.000-1.030) Urine Protein >=300 mg/dL (NEG-TRACE) Urine Glucose (UA) Negative mg/dL (NEG) Urine Ketones (Stick) Negative mg/dL (NEG) Urine Blood Large (NEG) Urine Nitrite Negative (NEG) Urine Bilirubin Negative (NEG) Urine Urobilinogen Dipstick 0.2 mg/dL (0.2 mg/dL) Urine Leukocyte Esterase Large (NEG) Urine RBC Field obscured /HPF (0-2) Urine WBC Tntc /HPF (0-4) Urine Squamous Epithelial Cells None /LPF Urine Bacteria Many /HPF (0-FEW) Urine Opiates Screen Neg (NEG) Urine Methadone Screen Neg (NEG) Urine Barbiturates Neg (NEG) Urine Phencyclidine Screen Neg (NEG) Urine Amphetamine/Methamphetamine Neg (NEG) Urine Benzodiazepines Screen Neg (NEG) Urine Cocaine Screen Neg (NEG) Urine Cannabinoids Screen Neg (NEG) Urine Ethyl Alcohol Neg (NEG) White Blood Count 7.3 x10^3/uL (4.0-11.0) Red Blood Count 3.80 x10^6/uL (4.30-5.70) Hemoglobin 10.9 g/dL (13.0-17.5) Hematocrit 32.3 % (39.0-53.0) Mean Corpuscular Volume 85 fL (79-100) Mean Corpuscular Hemoglobin 29 pg (25-35) Mean Corpuscular Hemoglobin Concent 34 g/dL (31-37) Red Cell Distribution Width 15.5 % (11.5-14.5) Platelet Count 112 x10^3/uL (140-400) Neutrophils (%) (Auto) 83 % (31-73) Lymphocytes (%) (Auto) 8 % (24-48) Monocytes (%) (Auto) 9 % (0-9) Eosinophils (%) (Auto) 0 % (0-3) Basophils (%) (Auto) 0 % (0-3) Neutrophils # (Auto) 6.0 x10^3/uL (1.8-7.7) Lymphocytes # (Auto) 0.6 x10^3/uL (1.0-4.8) Monocytes # (Auto) 0.6 x10^3/uL (0.0-1.1) Eosinophils # (Auto) 0.0 x10^3/uL (0.0-0.7) Basophils # (Auto) 0.0 x10^3/uL (0.0-0.2) Prothrombin Time 14.9 SEC (11.7-14.0) Prothromb Time International Ratio 1.2 (0.8-1.1) Sodium Level 139 mmol/L (136-145) Potassium Level 5.3 mmol/L (3.5-5.1) Chloride Level 110 mmol/L (98-107) Carbon Dioxide Level 13 mmol/L (21-32) Anion Gap 16 (6-14) Blood Urea Nitrogen 71 mg/dL (8-26) Creatinine 4.8 mg/dL (0.7-1.3) Estimated GFR (Cockcroft-Gault) 15.0 BUN/Creatinine Ratio 15 (6-20) Glucose Level 100 mg/dL (70-99) Lactic Acid Level 0.8 mmol/L (0.4-2.0) Calcium Level 8.2 mg/dL (8.5-10.1) Total Bilirubin 1.3 mg/dL (0.2-1.0) Aspartate Amino Transf (AST/SGOT) 25 U/L (15-37) Alanine Aminotransferase (ALT/SGPT) 31 U/L (16-63) Alkaline Phosphatase 65 U/L (46-116) Troponin I Quantitative < 0.017 ng/mL (0.000-0.055) Total Protein 6.8 g/dL (6.4-8.2) Albumin 2.8 g/dL (3.4-5.0) Albumin/Globulin Ratio 0.7 (1.0-1.7) Lipase 44 U/L (73-393) Acetone Level Neg (NEG) Glucose (Fingerstick) 135 mg/dL (70-99) 123 mg/dL (70-99) Test 02/13/20 08:01 Glucose (Fingerstick) 85 mg/dL (70-99) Laboratory Tests Test 02/12/20 12:15 02/12/20 12:48 02/12/20 17:03 02/12/20 20:36 Urine Collection Type U cath Urine Color Red Urine Clarity Turbid Urine pH 7.5 (<5.0-8.0) Urine Specific [place] 1.015 (1.000-1.030) Urine Protein >=300 mg/dL (NEG-TRACE) Urine Glucose (UA) Negative mg/dL (NEG) Urine Ketones (Stick) Negative mg/dL (NEG) Urine Blood Large (NEG) Urine Nitrite Negative (NEG) Urine Bilirubin Negative (NEG) Urine Urobilinogen Dipstick 0.2 mg/dL (0.2 mg/dL) Urine Leukocyte Esterase Large (NEG) Urine RBC Field obscured /HPF (0-2) Urine WBC Tntc /HPF (0-4) Urine Squamous Epithelial Cells None /LPF Urine Bacteria Many /HPF (0-FEW) Urine Opiates Screen Neg (NEG) Urine Methadone Screen Neg (NEG) Urine Barbiturates Neg (NEG) Urine Phencyclidine Screen Neg (NEG) Urine Amphetamine/Methamphetamine Neg (NEG) Urine Benzodiazepines Screen Neg (NEG) Urine Cocaine Screen Neg (NEG) Urine Cannabinoids Screen Neg (NEG) Urine Ethyl Alcohol Neg (NEG) White Blood Count 7.3 x10^3/uL (4.0-11.0) Red Blood Count 3.80 x10^6/uL (4.30-5.70) Hemoglobin 10.9 g/dL (13.0-17.5) Hematocrit 32.3 % (39.0-53.0) Mean Corpuscular Volume 85 fL (79-100) Mean Corpuscular Hemoglobin 29 pg (25-35) Mean Corpuscular Hemoglobin Concent 34 g/dL (31-37) Red Cell Distribution Width 15.5 % (11.5-14.5) Platelet Count 112 x10^3/uL (140-400) Neutrophils (%) (Auto) 83 % (31-73) Lymphocytes (%) (Auto) 8 % (24-48) Monocytes (%) (Auto) 9 % (0-9) Eosinophils (%) (Auto) 0 % (0-3) Basophils (%) (Auto) 0 % (0-3) Neutrophils # (Auto) 6.0 x10^3/uL (1.8-7.7) Lymphocytes # (Auto) 0.6 x10^3/uL (1.0-4.8) Monocytes # (Auto) 0.6 x10^3/uL (0.0-1.1) Eosinophils # (Auto) 0.0 x10^3/uL (0.0-0.7) Basophils # (Auto) 0.0 x10^3/uL (0.0-0.2) Prothrombin Time 14.9 SEC (11.7-14.0) Prothromb Time International Ratio 1.2 (0.8-1.1) Sodium Level 139 mmol/L (136-145) Potassium Level 5.3 mmol/L (3.5-5.1) Chloride Level 110 mmol/L (98-107) Carbon Dioxide Level 13 mmol/L (21-32) Anion Gap 16 (6-14) Blood Urea Nitrogen 71 mg/dL (8-26) Creatinine 4.8 mg/dL (0.7-1.3) Estimated GFR (Cockcroft-Gault) 15.0 BUN/Creatinine Ratio 15 (6-20) Glucose Level 100 mg/dL (70-99) Lactic Acid Level 0.8 mmol/L (0.4-2.0) Calcium Level 8.2 mg/dL (8.5-10.1) Total Bilirubin 1.3 mg/dL (0.2-1.0) Aspartate Amino Transf (AST/SGOT) 25 U/L (15-37) Alanine Aminotransferase (ALT/SGPT) 31 U/L (16-63) Alkaline Phosphatase 65 U/L (46-116) Troponin I Quantitative < 0.017 ng/mL (0.000-0.055) Total Protein 6.8 g/dL (6.4-8.2) Albumin 2.8 g/dL (3.4-5.0) Albumin/Globulin Ratio 0.7 (1.0-1.7) Lipase 44 U/L (73-393) Acetone Level Neg (NEG) Glucose (Fingerstick) 135 mg/dL (70-99) 123 mg/dL (70-99) Test 02/13/20 08:01 Glucose (Fingerstick) 85 mg/dL (70-99) Medications Current Medications Iohexol (Omnipaque 300 Mg/ml) 75 ml 1X ONCE IV ; Start 02/12/20 at 11:45; Stop 02/12/20 at 11:49; Status DC Info (CONTRAST GIVEN -- Rx MONITORING) 1 each PRN DAILY PRN MC SEE COMMENTS; Start 02/12/20 at 12:00; Stop 02/14/20 at 11:59 Iohexol (Omnipaque 300 Mg/ml) 100 ml STK-MED ONCE .ROUTE ; Start 02/12/20 at 11:50; Stop 02/12/20 at 11:50; Status DC Ceftriaxone Sodium (Rocephin) 1 gm 1X ONCE IVP Last administered on 02/12/20at 14:15; Start 02/12/20 at 13:45; Stop 02/12/20 at 13:46; Status DC Sodium Chloride 1,000 ml @ 1,000 mls/hr 1X ONCE IV Last administered on 02/12/20at 14:15; Start 02/12/20 at 13:45; Stop 02/12/20 at 14:44; Status DC Sodium Chloride 1,000 ml @ 1,000 mls/hr 1X ONCE IV Last administered on 02/12/20at 17:11; Start 02/12/20 at 14:30; Stop 02/12/20 at 15:29; Status DC Sodium Chloride (Normal Saline Flush) 3 ml QSHIFT PRN IV AFTER MEDS AND BLOOD DRAWS; Start 02/12/20 at 14:45 Sodium Chloride 1,000 ml @ 100 mls/hr Q10H IV Last administered on 02/13/20at 04:40; Start 02/12/20 at 14:41 Ondansetron HCl (Zofran) 4 mg PRN Q4HRS PRN IV NAUSEA/VOMITING; Start 02/12/20 at 14:45 Acetaminophen (Tylenol) 650 mg PRN Q4HRS PRN PO TEMP OVER 100.4F OR MILD PAIN; Start 02/12/20 at 14:45 Clonidine HCl (Catapres) 0.1 mg PRN Q6HRS PRN PO SBP>160 OR DBP>90 Last administered on 02/12/20at 20:08; Start 02/12/20 at 14:45 Docusate Sodium (Colace) 100 mg PRN BID PRN PO HARD STOOLS; Start 02/12/20 at 14:45 Albuterol Sulfate (Ventolin Neb Soln) 2.5 mg PRN Q4HRS PRN NEB SHORTNESS OF BREATH; Start 02/12/20 at 14:45 Guaifenesin (Robitussin) 200 mg PRN Q4HRS PRN PO COUGH; Start 02/12/20 at 14:45 Ceftriaxone Sodium (Rocephin) 1 gm Q24H IVP ; Start 02/13/20 at 15:00 Insulin Human Lispro (HumaLOG) 0-5 UNITS TIDWMEALS SQ ; Start 02/12/20 at 17:00 Dextrose (Dextrose 50%-Water Syringe) 12.5 gm PRN Q15MIN PRN IV SEE COMMENTS; Start 02/12/20 at 15:00 Heparin Sodium (Porcine) (Heparin Sodium) 5,000 unit Q8HRS SQ Last administered on 02/13/20at 06:07; Start 02/12/20 at 22:00 Loperamide HCl (Imodium) 2 mg BID PO Last administered on 02/13/20at 08:09; Start 02/12/20 at 21:00 Lactobacillus Rhamnosus (Culturelle) 1 cap BID PO ; Start 02/13/20 at 21:00 Active Scripts Active Reported Imodium A-D (Loperamide HCl) 2 Mg Capsule 2 Mg PO BID Vitals/I & O Vital Sign - Last 24 Hours 02/12/20 02/12/20 02/12/20 02/12/20 10:50 14:12 14:42 15:12 Temp 98.1 98.1 Pulse 99 104 98 105 Resp 16 B/P (MAP) 150/89 (109) 162/91 (114) 162/84 (110) 180/88 (118) Pulse Ox 99 98 99 99 O2 Delivery Room Air Room Air Room Air Room Air 02/12/20 02/12/20 02/12/20 02/12/20 16:05 16:30 19:30 20:00 Temp 97.3 97.3 97.3 97.3 Pulse 108 106 Resp 20 B/P (MAP) 166/99 (121) 179/99 (125) Pulse Ox 100 100 O2 Delivery Room Air Room Air Room Air Room Air 02/12/20 02/12/20 02/13/20 02/13/20 20:08 22:23 03:15 07:00 Temp 98.2 98.3 97.9 98.2 98.3 97.9 Pulse 106 85 83 83 Resp 20 18 B/P (MAP) 179/99 137/81 (99) 140/79 (99) 168/75 (106) Pulse Ox 100 100 100 O2 Delivery Room Air Room Air Room Air Intake and Output 02/12/20 02/12/20 02/13/20 15:00 23:00 07:00 Intake Total 200 ml 300 ml Output Total 350 ml 425 ml Balance -150 ml -125 ml Justicifation of Admission Dx: Justifications for Admission: Justification of Admission Dx: N/A SHARON OROZCO MD Feb 13, 2020 10:15
[2020-02-13 11:00] VITALS: BP 145/78
--- NOTE | 2020-02-13 11:41 | PDOC2 ---
CONSULT Date of Consult Date of Consult DATE: 02/13/20 TIME: 11:10 Reason for Consult Reason for Consult: ARI on CKD Identification/Chief Complaint Chief Complaint Currently no new complaints Source Source: Chart review, Patient History of Present Illness Reason for Visit: Pt is a 59 yo AAM who presents with wanting his Mendoza catheter changed as he has not had a change since January 03 and before that it was 2 months prior . He has had a Mendoza catheter for over a year due to urinary retention that was placed at of which he was following up at . He recently moved back from [place]. He states he was on Dialysis since January of 2019 but was told by that he doesnt need dialysis every day and needs only if he is not feeling well . His labs were checked and HD was beased on the labs. He reports his last HD was in September/October of this year. Since his last HD, he has not seen a provider and no labs have been done . He denies any CP or SOB. Denies any N/V. Reports he has chronic diarrhea and he had an extensive azul done including Colonoscopy- and no reason has been identified. He states he has been losing weight 2/2 chronic diarrhea as he is unable to eat much. He denies any Urinary complaints- states he didnt notice that urine was cloudy and he makes a lot of urine , no foul smell . Denies any F/C, No cough, No abdominal or Flank pain . Denies Hx of Nephrolithiasis . he does not have a PCP here yet. He does go to wound care for wounds on his feet from his diabetes He states he has not been to wound care for over a month. Before he moved to [place] he was getting dialysis 3 times a week at [facility]. He states when he moved to [place] they stated that his diabetes was not checked and his blood work was fine and he no longer needed dialysis. He states he is not on any meds for DM, HTN etc, Only takes Imodium. Denies use of NSAID's , No etoh , illegal drugs per patient. He is on [place] Past Medical History Cardiovascular: HTN CENTRAL NERVOUS SYSTEM: Periperal neuropathy Hepatobiliary: Hep A/B/C Endocrine: Diabetes Past Surgical History Past Surgical History: Other Family History Family History: Cancer, Diabetes, Hypertension, Stroke Social History No ALCOHOL: none Drugs: None, Other Lives: with Family Current Problem List Problem List Problems Medical Problems: (1) Acute renal failure Status: Acute Current Medications Current Medications Current Medications Iohexol (Omnipaque 300 Mg/ml) 75 ml 1X ONCE IV ; Start 02/12/20 at 11:45; Stop 02/12/20 at 11:49; Status DC Info (CONTRAST GIVEN -- Rx MONITORING) 1 each PRN DAILY PRN MC SEE COMMENTS; Start 02/12/20 at 12:00; Stop 02/14/20 at 11:59 Iohexol (Omnipaque 300 Mg/ml) 100 ml STK-MED ONCE .ROUTE ; Start 02/12/20 at 11:50; Stop 02/12/20 at 11:50; Status DC Ceftriaxone Sodium (Rocephin) 1 gm 1X ONCE IVP Last administered on 02/12/20at 14:15; Start 02/12/20 at 13:45; Stop 02/12/20 at 13:46; Status DC Sodium Chloride 1,000 ml @ 1,000 mls/hr 1X ONCE IV Last administered on 02/12/20at 14:15; Start 02/12/20 at 13:45; Stop 02/12/20 at 14:44; Status DC Sodium Chloride 1,000 ml @ 1,000 mls/hr 1X ONCE IV Last administered on 02/12/20at 17:11; Start 02/12/20 at 14:30; Stop 02/12/20 at 15:29; Status DC Sodium Chloride (Normal Saline Flush) 3 ml QSHIFT PRN IV AFTER MEDS AND BLOOD DRAWS; Start 02/12/20 at 14:45 Sodium Chloride 1,000 ml @ 100 mls/hr Q10H IV Last administered on 02/13/20at 04:40; Start 02/12/20 at 14:41 Ondansetron HCl (Zofran) 4 mg PRN Q4HRS PRN IV NAUSEA/VOMITING; Start 02/12/20 at 14:45 Acetaminophen (Tylenol) 650 mg PRN Q4HRS PRN PO TEMP OVER 100.4F OR MILD PAIN; Start 02/12/20 at 14:45 Clonidine HCl (Catapres) 0.1 mg PRN Q6HRS PRN PO SBP>160 OR DBP>90 Last administered on 02/12/20at 20:08; Start 02/12/20 at 14:45 Docusate Sodium (Colace) 100 mg PRN BID PRN PO HARD STOOLS; Start 02/12/20 at 14:45 Albuterol Sulfate (Ventolin Neb Soln) 2.5 mg PRN Q4HRS PRN NEB SHORTNESS OF BREATH; Start 02/12/20 at 14:45 Guaifenesin (Robitussin) 200 mg PRN Q4HRS PRN PO COUGH; Start 02/12/20 at 14:45 Ceftriaxone Sodium (Rocephin) 1 gm Q24H IVP ; Start 02/13/20 at 15:00 Insulin Human Lispro (HumaLOG) 0-5 UNITS TIDWMEALS SQ ; Start 02/12/20 at 17:00 Dextrose (Dextrose 50%-Water Syringe) 12.5 gm PRN Q15MIN PRN IV SEE COMMENTS; Start 02/12/20 at 15:00 Heparin Sodium (Porcine) (Heparin Sodium) 5,000 unit Q8HRS SQ Last administered on 02/13/20at 06:07; Start 02/12/20 at 22:00 Loperamide HCl (Imodium) 2 mg BID PO Last administered on 02/13/20at 08:09; Start 02/12/20 at 21:00 Lactobacillus Rhamnosus (Culturelle) 1 cap BID PO ; Start 02/13/20 at 21:00 Active Scripts Active Reported Imodium A-D (Loperamide HCl) 2 Mg Capsule 2 Mg PO BID Allergies Allergies: Coded Allergies: I S O L A T I O N *CONTACT* (Verified Allergy, Unknown, 08/10/17) mrsa foot No Known Medication Allergies (Verified Allergy, Unknown, 08/10/17) ROS Review of System As per HPI, rest of the ROS is negative Physical Exam Physical Exam GEN: NAD, propped up in bed HEEN OM moist, No icterus, On RA NECK Supple CV: S1S2, No Rub RESP: CTA, No acc muscle use GI: BS + ve, , Non Tender, Non Distended NEUR AxOx 3, Grossly No neurologic symptoms , No Asterxis : No CVA tenderness, no Suprapubic Tenderness, Chronic Mendoza in place (changed 02/11) SKIN No rash, no itiching EXT- No LE edema, No cyanosis , AV access Lt UE Vital Signs Vital Signs Date Time Temp Pulse Resp B/P (MAP) Pulse Ox O2 Delivery O2 Flow Rate FiO2 02/13/20 07:00 97.9 83 18 168/75 (106) 100 Room Air 97.9 Assessment & Plan ARI - vs ESRD - UTI , ?Non compliance,Chronic diarrhea , No fu labs since September per patient , No records available from [place] Has been on HD since January 2019, taken Off SeptemberOctober 2019 in [place] - per patient Per patient report he was going for HD as needed in [place] but in he was going 3 x week- " Elías was trying to kill me " He is adamant that if he has to go back on Hd, he will not go 3 x week and treatments should be based on his labs and symptoms ' Doubt Compliance , No labs this morning, Ordered, result pending , CT unremarkable Kidneys No Uremic symptoms or signs, Access - Lt Upper Ext AV access , continue IVF , supportive care , Strict I/O HyperKalemia- Mild Metabolic acidosis - Monitor , awaiting labs Anemia - No indication for SAMIRA Urinary retention- Chronic indwelling catheter since 2018 , pt not aware of details No fu with Urology, reports its changed every month, Catheter changed in ER CT diffuse urinary bladder wall thickening. ?UTI- asymptomatic , UA cw UTI , consider Culture , defer to primary Chronic Diarrhea - per patient, extensive azlu done. Defer to primary Fluid-filled bowel loops, compatible with an acute diarrheal illness No bowel obstruction or perforation. Discussed with patient and nursing staff \\ Labs Labs Laboratory Tests Test 02/12/20 12:15 02/12/20 12:48 02/12/20 17:03 02/12/20 20:36 Urine Collection Type U cath Urine Color Red Urine Clarity Turbid Urine pH 7.5 (<5.0-8.0) Urine Specific [place] 1.015 (1.000-1.030) Urine Protein >=300 mg/dL (NEG-TRACE) Urine Glucose (UA) Negative mg/dL (NEG) Urine Ketones (Stick) Negative mg/dL (NEG) Urine Blood Large (NEG) Urine Nitrite Negative (NEG) Urine Bilirubin Negative (NEG) Urine Urobilinogen Dipstick 0.2 mg/dL (0.2 mg/dL) Urine Leukocyte Esterase Large (NEG) Urine RBC Field obscured /HPF (0-2) Urine WBC Tntc /HPF (0-4) Urine Squamous Epithelial Cells None /LPF Urine Bacteria Many /HPF (0-FEW) Urine Opiates Screen Neg (NEG) Urine Methadone Screen Neg (NEG) Urine Barbiturates Neg (NEG) Urine Phencyclidine Screen Neg (NEG) Urine Amphetamine/Methamphetamine Neg (NEG) Urine Benzodiazepines Screen Neg (NEG) Urine Cocaine Screen Neg (NEG) Urine Cannabinoids Screen Neg (NEG) Urine Ethyl Alcohol Neg (NEG) White Blood Count 7.3 x10^3/uL (4.0-11.0) Red Blood Count 3.80 x10^6/uL (4.30-5.70) Hemoglobin 10.9 g/dL (13.0-17.5) Hematocrit 32.3 % (39.0-53.0) Mean Corpuscular Volume 85 fL (79-100) Mean Corpuscular Hemoglobin 29 pg (25-35) Mean Corpuscular Hemoglobin Concent 34 g/dL (31-37) Red Cell Distribution Width 15.5 % (11.5-14.5) Platelet Count 112 x10^3/uL (140-400) Neutrophils (%) (Auto) 83 % (31-73) Lymphocytes (%) (Auto) 8 % (24-48) Monocytes (%) (Auto) 9 % (0-9) Eosinophils (%) (Auto) 0 % (0-3) Basophils (%) (Auto) 0 % (0-3) Neutrophils # (Auto) 6.0 x10^3/uL (1.8-7.7) Lymphocytes # (Auto) 0.6 x10^3/uL (1.0-4.8) Monocytes # (Auto) 0.6 x10^3/uL (0.0-1.1) Eosinophils # (Auto) 0.0 x10^3/uL (0.0-0.7) Basophils # (Auto) 0.0 x10^3/uL (0.0-0.2) Prothrombin Time 14.9 SEC (11.7-14.0) Prothromb Time International Ratio 1.2 (0.8-1.1) Sodium Level 139 mmol/L (136-145) Potassium Level 5.3 mmol/L (3.5-5.1) Chloride Level 110 mmol/L (98-107) Carbon Dioxide Level 13 mmol/L (21-32) Anion Gap 16 (6-14) Blood Urea Nitrogen 71 mg/dL (8-26) Creatinine 4.8 mg/dL (0.7-1.3) Estimated GFR (Cockcroft-Gault) 15.0 BUN/Creatinine Ratio 15 (6-20) Glucose Level 100 mg/dL (70-99) Lactic Acid Level 0.8 mmol/L (0.4-2.0) Calcium Level 8.2 mg/dL (8.5-10.1) Total Bilirubin 1.3 mg/dL (0.2-1.0) Aspartate Amino Transf (AST/SGOT) 25 U/L (15-37) Alanine Aminotransferase (ALT/SGPT) 31 U/L (16-63) Alkaline Phosphatase 65 U/L (46-116) Troponin I Quantitative < 0.017 ng/mL (0.000-0.055) Total Protein 6.8 g/dL (6.4-8.2) Albumin 2.8 g/dL (3.4-5.0) Albumin/Globulin Ratio 0.7 (1.0-1.7) Lipase 44 U/L (73-393) Acetone Level Neg (NEG) Glucose (Fingerstick) 135 mg/dL (70-99) 123 mg/dL (70-99) Test 02/13/20 08:01 Glucose (Fingerstick) 85 mg/dL (70-99) Laboratory Tests Test 02/12/20 12:15 02/12/20 12:48 02/12/20 17:03 02/12/20 20:36 Urine Collection Type U cath Urine Color Red Urine Clarity Turbid Urine pH 7.5 (<5.0-8.0) Urine Specific [place] 1.015 (1.000-1.030) Urine Protein >=300 mg/dL (NEG-TRACE) Urine Glucose (UA) Negative mg/dL (NEG) Urine Ketones (Stick) Negative mg/dL (NEG) Urine Blood Large (NEG) Urine Nitrite Negative (NEG) Urine Bilirubin Negative (NEG) Urine Urobilinogen Dipstick 0.2 mg/dL (0.2 mg/dL) Urine Leukocyte Esterase Large (NEG) Urine RBC Field obscured /HPF (0-2) Urine WBC Tntc /HPF (0-4) Urine Squamous Epithelial Cells None /LPF Urine Bacteria Many /HPF (0-FEW) Urine Opiates Screen Neg (NEG) Urine Methadone Screen Neg (NEG) Urine Barbiturates Neg (NEG) Urine Phencyclidine Screen Neg (NEG) Urine Amphetamine/Methamphetamine Neg (NEG) Urine Benzodiazepines Screen Neg (NEG) Urine Cocaine Screen Neg (NEG) Urine Cannabinoids Screen Neg (NEG) Urine Ethyl Alcohol Neg (NEG) White Blood Count 7.3 x10^3/uL (4.0-11.0) Red Blood Count 3.80 x10^6/uL (4.30-5.70) Hemoglobin 10.9 g/dL (13.0-17.5) Hematocrit 32.3 % (39.0-53.0) Mean Corpuscular Volume 85 fL (79-100) Mean Corpuscular Hemoglobin 29 pg (25-35) Mean Corpuscular Hemoglobin Concent 34 g/dL (31-37) Red Cell Distribution Width 15.5 % (11.5-14.5) Platelet Count 112 x10^3/uL (140-400) Neutrophils (%) (Auto) 83 % (31-73) Lymphocytes (%) (Auto) 8 % (24-48) Monocytes (%) (Auto) 9 % (0-9) Eosinophils (%) (Auto) 0 % (0-3) Basophils (%) (Auto) 0 % (0-3) Neutrophils # (Auto) 6.0 x10^3/uL (1.8-7.7) Lymphocytes # (Auto) 0.6 x10^3/uL (1.0-4.8) Monocytes # (Auto) 0.6 x10^3/uL (0.0-1.1) Eosinophils # (Auto) 0.0 x10^3/uL (0.0-0.7) Basophils # (Auto) 0.0 x10^3/uL (0.0-0.2) Prothrombin Time 14.9 SEC (11.7-14.0) Prothromb Time International Ratio 1.2 (0.8-1.1) Sodium Level 139 mmol/L (136-145) Potassium Level 5.3 mmol/L (3.5-5.1) Chloride Level 110 mmol/L (98-107) Carbon Dioxide Level 13 mmol/L (21-32) Anion Gap 16 (6-14) Blood Urea Nitrogen 71 mg/dL (8-26) Creatinine 4.8 mg/dL (0.7-1.3) Estimated GFR (Cockcroft-Gault) 15.0 BUN/Creatinine Ratio 15 (6-20) Glucose Level 100 mg/dL (70-99) Lactic Acid Level 0.8 mmol/L (0.4-2.0) Calcium Level 8.2 mg/dL (8.5-10.1) Total Bilirubin 1.3 mg/dL (0.2-1.0) Aspartate Amino Transf (AST/SGOT) 25 U/L (15-37) Alanine Aminotransferase (ALT/SGPT) 31 U/L (16-63) Alkaline Phosphatase 65 U/L (46-116) Troponin I Quantitative < 0.017 ng/mL (0.000-0.055) Total Protein 6.8 g/dL (6.4-8.2) Albumin 2.8 g/dL (3.4-5.0) Albumin/Globulin Ratio 0.7 (1.0-1.7) Lipase 44 U/L (73-393) Acetone Level Neg (NEG) Glucose (Fingerstick) 135 mg/dL (70-99) 123 mg/dL (70-99) Test 02/13/20 08:01 Glucose (Fingerstick) 85 mg/dL (70-99) Review All relevant outside records, renal labs, imaging studies, telemetry/EKG's were reviewed. Images Images PORTABLE CHEST 1V CLINICAL HISTORY: Fluid overload COMPARISON: 11/17/2014 Cardiomediastinal Silhouette: Normal heart size. Aortic atherosclerotic calcification. Lungs and Pleura: No evidence of focal airspace consolidation. No visualized pleural effusion, however, the costophrenic angles are excluded from the image. Pulmonary vasculature unremarkable. Bones and Soft Tissues: No acute osseous abnormality. IMPRESSION: No evidence of acute cardiopulmonary abnormality or significant interval change. CT Abdomen and Pelvis without IV contrast INDICATION: Reason: lower abd pain, diarrhea / Spl. Instructions: WO CONTRAST PER ED / History: TECHNIQUE: Multi-detector row CT images were acquired from the lung bases through the abdomen and pelvis without the use of IV contrast. Sagittal and coronal images were acquired from the transaxial data. All CT scans performed at this facility utilize dose optimization techniques as appropriate to the exam, including the following: Automated exposure control and adjustment of the mA and/or KV according to patient size (this includes techniques or standardized protocols for targeted exams where dose is indication/reason for exam). ORAL CONTRAST: None COMPARISON: None FINDINGS: The absence of IV contrast limits evaluation of soft tissue pathology. LOWER CHEST: Unremarkable LIVER: Unremarkable BILIARY SYSTEM: Gallbladder contains large calcified stones, at least 2, measuring 2.3 and 3.0 cm.. Bile ducts are not dilated. PANCREAS: Unremarkable SPLEEN: Unremarkable ADRENALS: Unremarkable KIDNEYS & URETERS: Unremarkable BLADDER: Urinary bladder contains a Mendoza catheter and demonstrates diffuse urinary bladder wall thickening. REPRODUCTIVE ORGANS: Unremarkable GASTROINTESTINAL: Multiple fluid-filled small bowel loops, nondistended. Pelvis is not well seen. No findings of acute appendicitis. MESENTERY/PERITONEUM/RETROPERITONEUM: Unremarkable VASCULAR: Unremarkable LYMPH NODES: No adenopathy OSSEOUS & SOFT TISSUES: Unremarkable IMPRESSION: 1. CT findings compatible with acute cystitis. 2. Fluid-filled bowel loops, compatible with an acute diarrheal illness in the appropriate clinical context. No bowel obstruction or perforation. MARI HENRY MD Feb 13, 2020 11:40
[2020-02-13 12:21] LABS: ALBUMIN 2.1 g/dL (3.4-5.0); CALCIUM 7.6 mg/dL (8.5-10.1); CREATININE 4.1 mg/dL (0.7-1.3); PHOSPHORUS 3.9 mg/dL (2.6-4.7); POTASSIUM 4.5 mmol/L (3.5-5.1)
--- NOTE | 2020-02-13 13:20 | PDOC2 ---
GI CONSULT Date of Service: DATE: 02/13/20 TIME: 13:05 Reason For Consult: abnormal CT HPI: HPI: 59 y/o male admitted through ER. Reports "coffee-colored" urine, leakage around Mendoza, and decreased urine output. H/o CKD and urinary retention - most recently monitor about once weekly in the ER in [place]. Says Mendoza changes monthly and had HD x 3 in the 4 months he lived in [place]. Additional h/o DM - off all meds, doesn't check glucose. Also wants to know if he has a left inguinal hernia. GI-pedro, reports diarrhea x 1 year - watery or mushy stools after eating or sometimes during the night. Takes Imodium BID. Has a good appetite but has lost 30-40 pounds since 01/2018. Hasn't "been able to taste" since 05/2018. Denies reflux/heartburn, dysphagia, n/v, abd pain, constipation, hematochezia, and melena. Remote h/o "ulcer" in high school - details unclear. Does not recall previous EGD. Normal colonoscopy w/ Dr. Valentine in 2016. H/o Hep C (PCR+ here in the past) - untreated. In 2014, AFP normal here and fatty liver on US. Cholelithiasis noted on CT and past US. Denies pancreas history. Chronic anemia w/ normal iron studies in 2014. No NSAIDs. PMH: PMH: CKD, urinary retention, DM, peripheral neuropathy, HTN, UTI, Hep C, MRSA RIH repair FH: Family History: Cancer (unknown type), CVA, DM Social History: Smoke: No ALCOHOL: none Drugs: Other (+cocaine here in the past) ROS: GEN: Denies fevers, chills, sweats HEENT: Denies blurred vision, sore throat CV: Denies chest pain RESP: Denies shortness of air, cough GI: Per HPI : +hematuria ENDO: +weight loss NEURO: Denies confusion, dizziness MSK: Denies weakness, joint pain/swelling SKIN: Denies jaundice, pruritus Vitals: Vitals: Vital Signs Date Time Temp Pulse Resp B/P (MAP) Pulse Ox O2 Delivery O2 Flow Rate FiO2 02/13/20 11:00 98.3 80 18 145/78 (100) 100 Room Air 98.3 Labs: Labs: Laboratory Tests Test 02/12/20 17:03 02/12/20 20:36 02/13/20 08:01 02/13/20 10:55 Glucose (Fingerstick) 135 mg/dL (70-99) 123 mg/dL (70-99) 85 mg/dL (70-99) Sodium Level 138 mmol/L (136-145) Potassium Level 4.5 mmol/L (3.5-5.1) Chloride Level 110 mmol/L (98-107) Carbon Dioxide Level 14 mmol/L (21-32) Anion Gap 14 (6-14) Blood Urea Nitrogen 64 mg/dL (8-26) Creatinine 4.1 mg/dL (0.7-1.3) Estimated GFR (Cockcroft-Gault) 18.0 Glucose Level 114 mg/dL (70-99) Calcium Level 7.6 mg/dL (8.5-10.1) Phosphorus Level 3.9 mg/dL (2.6-4.7) Creatine Kinase 50 U/L (39-308) Albumin 2.1 g/dL (3.4-5.0) Test 02/13/20 12:12 Glucose (Fingerstick) 95 mg/dL (70-99) Allergies: Coded Allergies: I S O L A T I O N *CONTACT* (Verified Allergy, Unknown, 08/10/17) mrsa foot No Known Medication Allergies (Verified Allergy, Unknown, 08/10/17) Medications: Current Medications Medications (Trade) Dose Ordered Sig/Kirill Route PRN Reason Start Time Stop Time Status Last Admin Dose Admin Ceftriaxone Sodium (Rocephin) 1 gm 1X ONCE IVP 02/12/20 13:45 02/12/20 13:46 DC 02/12/20 14:15 Sodium Chloride 1,000 ml @ 1,000 mls/hr 1X ONCE IV 02/12/20 13:45 02/12/20 14:44 DC 02/12/20 14:15 Sodium Chloride 1,000 ml @ 1,000 mls/hr 1X ONCE IV 02/12/20 14:30 02/12/20 15:29 DC 02/12/20 17:11 Sodium Chloride 1,000 ml @ 100 mls/hr Q10H IV 02/12/20 14:41 02/13/20 04:40 Clonidine HCl (Catapres) 0.1 mg PRN Q6HRS PRN PO SBP>160 OR DBP>90 02/12/20 14:45 02/12/20 20:08 Heparin Sodium (Porcine) (Heparin Sodium) 5,000 unit Q8HRS SQ 02/12/20 22:00 02/13/20 06:07 Loperamide HCl (Imodium) 2 mg BID PO 02/12/20 21:00 02/13/20 08:09 Imaging: Imaging: CT A/P w/o contrast FINDINGS: The absence of IV contrast limits evaluation of soft tissue pathology. LOWER CHEST: Unremarkable LIVER: Unremarkable BILIARY SYSTEM: Gallbladder contains large calcified stones, at least 2, measuring 2.3 and 3.0 cm.. Bile ducts are not dilated. PANCREAS: Unremarkable SPLEEN: Unremarkable ADRENALS: Unremarkable KIDNEYS & URETERS: Unremarkable BLADDER: Urinary bladder contains a Mendoza catheter and demonstrates diffuse uri nary bladder wall thickening. REPRODUCTIVE ORGANS: Unremarkable GASTROINTESTINAL: Multiple fluid-filled small bowel loops, nondistended. Pelvis is not well seen. No findings of acute appendicitis. MESENTERY/PERITONEUM/RETROPERITONEUM: Unremarkable VASCULAR: Unremarkable LYMPH NODES: No adenopathy OSSEOUS & SOFT TISSUES: Unremarkable IMPRESSION: 1. CT findings compatible with acute cystitis. 2. Fluid-filled bowel loops, compatible with an acute diarrheal illness in the appropriate clinical context. No bowel obstruction or perforation. CXR IMPRESSION: No evidence of acute cardiopulmonary abnormality or significant interval change. PE: GEN: NAD, thin HEENT: Atraumatic, PERRL LUNGS: CTAB HEART: RRR ABD: NABS, S/ND/NT EXTREMITY: No edema SKIN: No rashes, no jaundice NEURO/PSYCH: A & O 3 A/P: A/P: CKD, urinary retention, UTI - per nephrology/primary Chronic diarrhea, weight loss - takes Imodium BID Chronic anemia, mild thrombocytopenia Abnormal CT - "fluid-filled bowel loops" CRC screen - normal colonoscopy 2017 Cholelithiasis Hep C - normal AFP in 2014, unremarkable liver on current CT DM -- Enteric panel ordered - await this and add C Diff. Recheck AFP. ANDREAS BRAVO Feb 13, 2020 13:20
--- NOTE | 2020-02-13 13:50 | NUR ---
SS following for discharge planning. SS reviewed pt chart and discussed with pt RN. Pt is currently on room air and IV Rocephin. Nephrology consulted and awaiting labs to see if pt is in need of dialysis. SS will continue to follow for discharge planning.
[2020-02-13 15:00] VITALS: BP 127/78
--- NOTE | 2020-02-13 15:11 | PDOC2 ---
Chief Complaint: Chief Complaint: Right foot DFU Vital Signs: Vital Signs: Vital Signs Date Time Temp Pulse Resp B/P (MAP) Pulse Ox O2 Delivery O2 Flow Rate FiO2 02/12/20 10:50 98.1 99 16 150/89 (109) 99 Room Air 98.1 Vital Signs Date Time Temp Pulse Resp B/P (MAP) Pulse Ox O2 Delivery O2 Flow Rate FiO2 02/13/20 11:00 98.3 80 18 145/78 (100) 100 Room Air 98.3 Allergies: Allergies: Allergies Coded Allergies Type Severity Reaction Last Updated Verified I S O L A T I O N *CONTACT* Allergy Unknown 08/10/17 Yes No Known Medication Allergies Allergy Unknown 08/10/17 Yes Medications: Home Meds Reported Medications Loperamide HCl (Imodium A-D) 2 Mg Capsule, 2 MG PO BID for diarrhea, CAP 02/12/20 Discontinued Reported Medications Oxycodone/Apap 5-325 (PERCOCET 5-325 MG TABLET ) 1 Each Tablet, 1-2 TAB PO Q4HRS, #40 TAB 08/19/15 Lisinopril (LISINOPRIL) 20 Mg Tablet, 1 TAB PO DAILY, #30 TAB 5 Refills 08/16/15 Discontinued Scripts Metformin Hcl (GLUCOPHAGE) 500 Mg Tablet, 500 MG PO BIDWMEALS for Diabetes, #60 TAB 3 Refills Prov:TIMOTHY LAWS MD 11/20/14 Gabapentin (NEURONTIN ) 300 Mg Capsule, 300 MG PO TID for Neuropathy, #90 TAB 1 Refill Prov:TIMOTHY LAWS MD 11/20/14 PCP: PCP: Dr. Ruiz Pain: Pain Location: Other (Patient denies painful symptoms at this time. Patient with underlying diabetic neuropathy and therefore does not have sensate of the affected foot.) Scale (pain): 10 Pain Context: None Date of Onset Patient well-known to the wound care center here at [facility] for his right plantar foot DFU. Patient has required multiple bedside surgical excisional debridement of the wound in the past. Patient has custom fitted shoes and wears these for offloading of the affected area. Review of Systems: Patient states that he is feeling well at this time. Patient denies nausea, vomiting or diarrhea. Patient denies cough or shortness of breath. Patient states that he has been sleeping well without mood swings or headaches. Patient denies painful symptoms and states that he has neuropathy of his bilateral feet, therefore not feeling the affected area. Physical Exam Patient awake and alert 59-year-old -[place] male who is in no apparent distress at this time. Vital signs are stable. Patient is afebrile. Patient is pleasant conversation is a good historian. Respirations are even and unlabored. Patient is on room air not requiring supplemental oxygen. Abdomen is soft, nondistended and nontender to palpation. Skin is warm, dry and pink. The lateral plantar aspect of the right foot presents with a thickened callus. There is no surrounding erythema or edema present. Discoloration is present in the center of the callus. Following application of topical lidocaine for ample period of time, callus parred using sterile curettes. No bleeding occurred with procedure and patient denied painful symptoms. Previously noted wound bed, now covered with 100% epithelial coverage with minimal overlying callus. A/P Right plantar foot diabetic foot ulcer, now resolved -Callus parred at bedside. -Discussed importance of custom fitted shoes to continue offloading the affected area. Patient stated understanding. -Patient may follow-up in the clinic as needed for callus paring of the affected area in the future. RAOUL HENSLEY LARD MAKER Feb 13, 2020 15:10
[2020-02-13] MEDS: CALCIUM POLYCARBOPHIL 625 MG TABLET PO SCH (15:16)
[2020-02-13] MEDS: cefTRIAXone IV Push 1 GM VIAL. IVP SCH (15:17)
[2020-02-13 19:43] VITALS: BP 146/83
[2020-02-13] MEDS: LACTOBACILLUS RHAMNOSUS GG 1 CAPSULE. PO SCH (20:11)
[2020-02-13 22:15] VITALS: BP 142/81
[2020-02-14 02:38] VITALS: BP 165/92
[2020-02-14] MEDS: HEPARIN for SUB-Q USE 5,000 UNIT/ML VIAL. SQ SCH ×3 (05:02→22:28)
[2020-02-14] MEDS: IV NORMAL SALINE 1000ML BAG 1,000 ML IV SCH (05:32)
[2020-02-14 06:20] LABS: CALCIUM 7.1 mg/dL (8.5-10.1); GFR 18.6; POTASSIUM 4.7 mmol/L (3.5-5.1)
[2020-02-14 07:00] VITALS: BP 153/84
[2020-02-14] MEDS ORDERED: IV NORMAL SALINE 1000ML BAG 1,000 ML IV PRN ×2 (07:24)
[2020-02-14] MEDS ORDERED: DIALYSIS PATIENT. MC PRN ×2 (07:30)
[2020-02-14] MEDS ORDERED: ALBUMIN HUMAN 25% 200 ML IV PRN (07:30)
[2020-02-14] MEDS: INSULIN LISPRO 300 UNITS/3 ML VIAL. SQ SCH ×3 (08:00→16:58)
--- NOTE | 2020-02-14 08:23 | PDOC ---
PROGRESS NOTES Date of Service: DATE: 02/14/20 TIME: 08:18 Chief Complaint Chief Complaint IMPRESSION: 1. CT findings compatible with acute cystitis. 2. Fluid-filled bowel loops, compatible with an acute diarrheal illness in the appropriate clinical context. No bowel obstruction or perforation. Electronically signed by: Anderson Emanuel MD (02/12/2020 2:26 PM) [facility] [place] DICTATED and SIGNED BY: ANDERSON EMANUEL MD DATE: 02/12/20 1426 VTE Prophylaxis Ordered VTE Prophylaxis Devices: Yes VTE Pharmacological Prophylaxi: Yes IMPRESSION Assessment/Plan IMPRESSION: 1. ACUTE RENAL INJURY, on chronic renal failure 2. CT findings compatible with acute cystitis., HX URINARY RETENTION 3. Fluid-filled bowel loops, compatible with an acute diarrheal illness No bowel obstruction or perforation. 4. HEMATURIA 5. metabolic acidosis PLAN======== ADMIT Consult nephrology iv fluid support renal panel today IV ROCEPHIN C Diff, enteric panel, and celiac serology ordered; // fibercon D/W RN Justifications for Admission Justifications for Admission Other Justification History of Present Illness History of Present Illness Identification/Chief Complaint Chief Complaint seen in ER with acute on chronic renal failure 59 year old male who presents with wanting his Mendoza catheter changed as he has not had a change since January 03 and before that it was 2 months prior. Has had a Mendoza catheter for over a year due to urinary retention that was placed at of which he was following up at . He recently moved back from [place]. he does not have a PCP here yet. He does go to wound care for wounds on his feet from his diabetes 02-12 He states he has not been to wound care for over a month. states that before he moved to [place] he was getting dialysis 3 times a week at [facility]. He states when he moved to [place] they stated that his diabetes was not checked and his blood work was fine and he no longer needed dialysis. states in [place] they told him to come back in 2 weeks and checked his blood work and if he did need dialysis they said to come back in 1 month and he stated that he did not need dialysis so he is not on dialysis in a year. Past Medical History Past Medical History Past Medical History Past Medical History Past Medical History: Diabetes-Type II, Hypertension, Other Additional Past Medical Histor: RETENTION Past Surgical History: Other Additional Past Surgical Histo: "I'VE HAD 5 OR 6 SURGERIES BUT I DON'T KNOW WHAT THEY WERE FOR OR NAMES" Smoking Status: stopped drug use 30 yrs ago Alcohol Use: None Drug Use: None fhx htn Cardiovascular: HTN CENTRAL NERVOUS SYSTEM: Periperal neuropathy Hepatobiliary: Hep A/B/C Endocrine: Diabetes Past Surgical History Past Surgical History: Other Family History Family History: Cancer, Diabetes, Hypertension, Stroke Social History Smoke: No ALCOHOL: none Drugs: None, Other Current Problem List Problem List Problems Medical Problems: (1) Acute renal failure Status: Acute Vitals Vitals Vital Signs Date Time Temp Pulse Resp B/P (MAP) Pulse Ox O2 Delivery O2 Flow Rate FiO2 02/14/20 02:38 98.1 80 18 165/92 (116) 100 Room Air 98.1 Physical Exam General: Alert, Oriented X3, Cooperative, No acute distress Heart: Regular rate, Normal S1 Lungs: Clear Abdomen: Normal bowel sounds, Soft, No tenderness Extremities: No clubbing, No cyanosis, No edema Labs LABS EXAM: CT Abdomen and Pelvis without IV contrast INDICATION: Reason: lower abd pain, diarrhea / Spl. Instructions: WO CONTRAST PER ED / History: TECHNIQUE: Multi-detector row CT images were acquired from the lung bases through the abdomen and pelvis without the use of IV contrast. Sagittal and coronal images were acquired from the transaxial data. All CT scans performed at this facility utilize dose optimization techniques as appropriate to the exam, including the following: Automated exposure control and adjustment of the mA and/or KV according to patient size (this includes techniques or standardized protocols for targeted exams where dose is indication/reason for exam). ORAL CONTRAST: None COMPARISON: None FINDINGS: The absence of IV contrast limits evaluation of soft tissue pathology. LOWER CHEST: Unremarkable LIVER: Unremarkable BILIARY SYSTEM: Gallbladder contains large calcified stones, at least 2, measuring 2.3 and 3.0 cm.. Bile ducts are not dilated. PANCREAS: Unremarkable SPLEEN: Unremarkable ADRENALS: Unremarkable KIDNEYS & URETERS: Unremarkable BLADDER: Urinary bladder contains a Mendoza catheter and demonstrates diffuse urinary bladder wall thickening. REPRODUCTIVE ORGANS: Unremarkable GASTROINTESTINAL: Multiple fluid-filled small bowel loops, nondistended. Pelvis is not well seen. No findings of acute appendicitis. MESENTERY/PERITONEUM/RETROPERITONEUM: Unremarkable VASCULAR: Unremarkable LYMPH NODES: No adenopathy OSSEOUS & SOFT TISSUES: Unremarkable IMPRESSION: 1. CT findings compatible with acute cystitis. 2. Fluid-filled bowel loops, compatible with an acute diarrheal illness in the appropriate clinical context. No bowel obstruction or perforation. Electronically signed by: Anderson Emanuel MD (02/12/2020 2:26 PM) [facility] [place] DICTATED and SIGNED BY: ANDERSON EMANUEL MD DATE: 02/12/201425 Laboratory Tests Test 02/13/20 10:55 02/13/20 12:12 02/13/20 14:35 02/13/20 17:10 Sodium Level 138 mmol/L (136-145) Potassium Level 4.5 mmol/L (3.5-5.1) Chloride Level 110 mmol/L (98-107) Carbon Dioxide Level 14 mmol/L (21-32) Anion Gap 14 (6-14) Blood Urea Nitrogen 64 mg/dL (8-26) Creatinine 4.1 mg/dL (0.7-1.3) Estimated GFR (Cockcroft-Gault) 18.0 Glucose Level 114 mg/dL (70-99) Calcium Level 7.6 mg/dL (8.5-10.1) Phosphorus Level 3.9 mg/dL (2.6-4.7) Creatine Kinase 50 U/L (39-308) Albumin 2.1 g/dL (3.4-5.0) Tumor Marker Alpha Fetoprotein 1.2 ng/mL (0.0-8.3) Hepatitis B Surface Antigen Nonreactive (Nonreactive) Hepatitis B Surface Antibody Nonreactive Hepatitis B Core Total Antibody Nonreactive (Nonreactive) Glucose (Fingerstick) 95 mg/dL (70-99) 124 mg/dL (70-99) Iron Level 35 ug/dL (65-175) Total Iron Binding Capacity 161 ug/dL (250-450) Iron Saturation 22 % (15-34) Test 02/13/20 20:32 02/14/20 05:05 02/14/20 07:58 Glucose (Fingerstick) 135 mg/dL (70-99) 108 mg/dL (70-99) Sodium Level 140 mmol/L (136-145) Potassium Level 4.7 mmol/L (3.5-5.1) Chloride Level 113 mmol/L (98-107) Carbon Dioxide Level 14 mmol/L (21-32) Anion Gap 13 (6-14) Blood Urea Nitrogen 61 mg/dL (8-26) Creatinine 4.0 mg/dL (0.7-1.3) Estimated GFR (Cockcroft-Gault) 18.6 Glucose Level 108 mg/dL (70-99) Calcium Level 7.1 mg/dL (8.5-10.1) Assessment and Plan Assessmemt and Plan Problems Medical Problems: (1) Acute renal failure Status: Acute Comment Review of Relevant I have reviewed the following items kenneth (where applicable) has been applied. Labs Laboratory Tests Test 02/12/20 12:15 02/12/20 12:48 02/12/20 17:03 02/12/20 20:36 Urine Collection Type U cath Urine Color Red Urine Clarity Turbid Urine pH 7.5 (<5.0-8.0) Urine Specific Barnhart 1.015 (1.000-1.030) Urine Protein >=300 mg/dL (NEG-TRACE) Urine Glucose (UA) Negative mg/dL (NEG) Urine Ketones (Stick) Negative mg/dL (NEG) Urine Blood Large (NEG) Urine Nitrite Negative (NEG) Urine Bilirubin Negative (NEG) Urine Urobilinogen Dipstick 0.2 mg/dL (0.2 mg/dL) Urine Leukocyte Esterase Large (NEG) Urine RBC Field obscured /HPF (0-2) Urine WBC Tntc /HPF (0-4) Urine Squamous Epithelial Cells None /LPF Urine Bacteria Many /HPF (0-FEW) Urine Opiates Screen Neg (NEG) Urine Methadone Screen Neg (NEG) Urine Barbiturates Neg (NEG) Urine Phencyclidine Screen Neg (NEG) Urine Amphetamine/Methamphetamine Neg (NEG) Urine Benzodiazepines Screen Neg (NEG) Urine Cocaine Screen Neg (NEG) Urine Cannabinoids Screen Neg (NEG) Urine Ethyl Alcohol Neg (NEG) White Blood Count 7.3 x10^3/uL (4.0-11.0) Red Blood Count 3.80 x10^6/uL (4.30-5.70) Hemoglobin 10.9 g/dL (13.0-17.5) Hematocrit 32.3 % (39.0-53.0) Mean Corpuscular Volume 85 fL (79-100) Mean Corpuscular Hemoglobin 29 pg (25-35) Mean Corpuscular Hemoglobin Concent 34 g/dL (31-37) Red Cell Distribution Width 15.5 % (11.5-14.5) Platelet Count 112 x10^3/uL (140-400) Neutrophils (%) (Auto) 83 % (31-73) Lymphocytes (%) (Auto) 8 % (24-48) Monocytes (%) (Auto) 9 % (0-9) Eosinophils (%) (Auto) 0 % (0-3) Basophils (%) (Auto) 0 % (0-3) Neutrophils # (Auto) 6.0 x10^3/uL (1.8-7.7) Lymphocytes # (Auto) 0.6 x10^3/uL (1.0-4.8) Monocytes # (Auto) 0.6 x10^3/uL (0.0-1.1) Eosinophils # (Auto) 0.0 x10^3/uL (0.0-0.7) Basophils # (Auto) 0.0 x10^3/uL (0.0-0.2) Prothrombin Time 14.9 SEC (11.7-14.0) Prothromb Time International Ratio 1.2 (0.8-1.1) Sodium Level 139 mmol/L (136-145) Potassium Level 5.3 mmol/L (3.5-5.1) Chloride Level 110 mmol/L (98-107) Carbon Dioxide Level 13 mmol/L (21-32) Anion Gap 16 (6-14) Blood Urea Nitrogen 71 mg/dL (8-26) Creatinine 4.8 mg/dL (0.7-1.3) Estimated GFR (Cockcroft-Gault) 15.0 BUN/Creatinine Ratio 15 (6-20) Glucose Level 100 mg/dL (70-99) Lactic Acid Level 0.8 mmol/L (0.4-2.0) Calcium Level 8.2 mg/dL (8.5-10.1) Total Bilirubin 1.3 mg/dL (0.2-1.0) Aspartate Amino Transf (AST/SGOT) 25 U/L (15-37) Alanine Aminotransferase (ALT/SGPT) 31 U/L (16-63) Alkaline Phosphatase 65 U/L (46-116) Troponin I Quantitative < 0.017 ng/mL (0.000-0.055) Total Protein 6.8 g/dL (6.4-8.2) Albumin 2.8 g/dL (3.4-5.0) Albumin/Globulin Ratio 0.7 (1.0-1.7) Lipase 44 U/L (73-393) Acetone Level Neg (NEG) Glucose (Fingerstick) 135 mg/dL (70-99) 123 mg/dL (70-99) Test 02/13/20 08:01 02/13/20 10:55 02/13/20 12:12 02/13/20 14:35 Glucose (Fingerstick) 85 mg/dL (70-99) 95 mg/dL (70-99) Sodium Level 138 mmol/L (136-145) Potassium Level 4.5 mmol/L (3.5-5.1) Chloride Level 110 mmol/L (98-107) Carbon Dioxide Level 14 mmol/L (21-32) Anion Gap 14 (6-14) Blood Urea Nitrogen 64 mg/dL (8-26) Creatinine 4.1 mg/dL (0.7-1.3) Estimated GFR (Cockcroft-Gault) 18.0 Glucose Level 114 mg/dL (70-99) Calcium Level 7.6 mg/dL (8.5-10.1) Phosphorus Level 3.9 mg/dL (2.6-4.7) Creatine Kinase 50 U/L (39-308) Albumin 2.1 g/dL (3.4-5.0) Tumor Marker Alpha Fetoprotein 1.2 ng/mL (0.0-8.3) Hepatitis B Surface Antigen Nonreactive (Nonreactive) Hepatitis B Surface Antibody Nonreactive Hepatitis B Core Total Antibody Nonreactive (Nonreactive) Iron Level 35 ug/dL (65-175) Total Iron Binding Capacity 161 ug/dL (250-450) Iron Saturation 22 % (15-34) Test 02/13/20 17:10 02/13/20 20:32 02/14/20 05:05 02/14/20 07:58 Glucose (Fingerstick) 124 mg/dL (70-99) 135 mg/dL (70-99) 108 mg/dL (70-99) Sodium Level 140 mmol/L (136-145) Potassium Level 4.7 mmol/L (3.5-5.1) Chloride Level 113 mmol/L (98-107) Carbon Dioxide Level 14 mmol/L (21-32) Anion Gap 13 (6-14) Blood Urea Nitrogen 61 mg/dL (8-26) Creatinine 4.0 mg/dL (0.7-1.3) Estimated GFR (Cockcroft-Gault) 18.6 Glucose Level 108 mg/dL (70-99) Calcium Level 7.1 mg/dL (8.5-10.1) Laboratory Tests Test 02/13/20 10:55 02/13/20 12:12 02/13/20 14:35 02/13/20 17:10 Sodium Level 138 mmol/L (136-145) Potassium Level 4.5 mmol/L (3.5-5.1) Chloride Level 110 mmol/L (98-107) Carbon Dioxide Level 14 mmol/L (21-32) Anion Gap 14 (6-14) Blood Urea Nitrogen 64 mg/dL (8-26) Creatinine 4.1 mg/dL (0.7-1.3) Estimated GFR (Cockcroft-Gault) 18.0 Glucose Level 114 mg/dL (70-99) Calcium Level 7.6 mg/dL (8.5-10.1) Phosphorus Level 3.9 mg/dL (2.6-4.7) Creatine Kinase 50 U/L (39-308) Albumin 2.1 g/dL (3.4-5.0) Tumor Marker Alpha Fetoprotein 1.2 ng/mL (0.0-8.3) Hepatitis B Surface Antigen Nonreactive (Nonreactive) Hepatitis B Surface Antibody Nonreactive Hepatitis B Core Total Antibody Nonreactive (Nonreactive) Glucose (Fingerstick) 95 mg/dL (70-99) 124 mg/dL (70-99) Iron Level 35 ug/dL (65-175) Total Iron Binding Capacity 161 ug/dL (250-450) Iron Saturation 22 % (15-34) Test 02/13/20 20:32 02/14/20 05:05 02/14/20 07:58 Glucose (Fingerstick) 135 mg/dL (70-99) 108 mg/dL (70-99) Sodium Level 140 mmol/L (136-145) Potassium Level 4.7 mmol/L (3.5-5.1) Chloride Level 113 mmol/L (98-107) Carbon Dioxide Level 14 mmol/L (21-32) Anion Gap 13 (6-14) Blood Urea Nitrogen 61 mg/dL (8-26) Creatinine 4.0 mg/dL (0.7-1.3) Estimated GFR (Cockcroft-Gault) 18.6 Glucose Level 108 mg/dL (70-99) Calcium Level 7.1 mg/dL (8.5-10.1) Microbiology 02/12/20 Blood Culture - Preliminary, Resulted NO GROWTH AFTER 1 DAY Medications Current Medications Iohexol (Omnipaque 300 Mg/ml) 75 ml 1X ONCE IV ; Start 02/12/20 at 11:45; Stop 02/12/20 at 11:49; Status DC Info (CONTRAST GIVEN -- Rx MONITORING) 1 each PRN DAILY PRN MC SEE COMMENTS; Start 02/12/20 at 12:00; Stop 02/14/20 at 11:59 Iohexol (Omnipaque 300 Mg/ml) 100 ml STK-MED ONCE .ROUTE ; Start 02/12/20 at 11:50; Stop 02/12/20 at 11:50; Status DC Ceftriaxone Sodium (Rocephin) 1 gm 1X ONCE IVP Last administered on 02/12/20at 14:15; Start 02/12/20 at 13:45; Stop 02/12/20 at 13:46; Status DC Sodium Chloride 1,000 ml @ 1,000 mls/hr 1X ONCE IV Last administered on 02/12/20at 14:15; Start 02/12/20 at 13:45; Stop 02/12/20 at 14:44; Status DC Sodium Chloride 1,000 ml @ 1,000 mls/hr 1X ONCE IV Last administered on 02/12/20at 17:11; Start 02/12/20 at 14:30; Stop 02/12/20 at 15:29; Status DC Sodium Chloride (Normal Saline Flush) 3 ml QSHIFT PRN IV AFTER MEDS AND BLOOD DRAWS; Start 02/12/20 at 14:45 Sodium Chloride 1,000 ml @ 100 mls/hr Q10H IV Last administered on 02/14/20at 05:32; Start 02/12/20 at 14:41 Ondansetron HCl (Zofran) 4 mg PRN Q4HRS PRN IV NAUSEA/VOMITING; Start 02/12/20 at 14:45 Acetaminophen (Tylenol) 650 mg PRN Q4HRS PRN PO TEMP OVER 100.4F OR MILD PAIN; Start 02/12/20 at 14:45 Clonidine HCl (Catapres) 0.1 mg PRN Q6HRS PRN PO SBP>160 OR DBP>90 Last administered on 02/12/20at 20:08; Start 02/12/20 at 14:45 Docusate Sodium (Colace) 100 mg PRN BID PRN PO HARD STOOLS; Start 02/12/20 at 14:45 Albuterol Sulfate (Ventolin Neb Soln) 2.5 mg PRN Q4HRS PRN NEB SHORTNESS OF BREATH; Start 02/12/20 at 14:45 Guaifenesin (Robitussin) 200 mg PRN Q4HRS PRN PO COUGH; Start 02/12/20 at 14:45 Ceftriaxone Sodium (Rocephin) 1 gm Q24H IVP Last administered on 02/13/20at 15:17; Start 02/13/20 at 15:00 Insulin Human Lispro (HumaLOG) 0-5 UNITS TIDWMEALS SQ ; Start 02/12/20 at 17:00 Dextrose (Dextrose 50%-Water Syringe) 12.5 gm PRN Q15MIN PRN IV SEE COMMENTS; Start 02/12/20 at 15:00 Heparin Sodium (Porcine) (Heparin Sodium) 5,000 unit Q8HRS SQ Last administered on 02/14/20at 05:02; Start 02/12/20 at 22:00 Loperamide HCl (Imodium) 2 mg BID PO Last administered on 02/13/20at 20:11; Start 02/12/20 at 21:00 Lactobacillus Rhamnosus (Culturelle) 1 cap BID PO Last administered on 02/13/20at 20:11; Start 02/13/20 at 21:00 Calcium Polycarbophil (Fibercon) 625 mg QODAY PO Last administered on 02/13/20at 15:16; Start 02/13/20 at 15:00 Sodium Chloride 1,000 ml @ 1,000 mls/hr Q1H PRN IV hypotension; Start 02/14/20 at 07:24; Stop 02/14/20 at 13:23 Albumin Human 200 ml @ 200 mls/hr 1X PRN PRN IV Hypotension; Start 02/14/20 at 07:30; Stop 02/14/20 at 13:29 Sodium Chloride 1,000 ml @ 400 mls/hr Q2H30M PRN IV PATENCY; Start 02/14/20 at 07:24; Stop 02/14/20 at 19:23 Info (PHARMACY MONITORING -- do not chart) 1 each PRN DAILY PRN MC SEE COMMENTS; Start 02/14/20 at 07:30; Stop 02/14/20 at 07:52; Status DC Info (PHARMACY MONITORING -- do not chart) 1 each PRN DAILY PRN MC SEE COMMENTS; Start 02/14/20 at 07:30 Active Scripts Active Reported Imodium A-D (Loperamide HCl) 2 Mg Capsule 2 Mg PO BID Vitals/I & O Vital Sign - Last 24 Hours 02/13/20 02/13/20 02/13/20 02/13/20 11:00 15:00 19:40 19:43 Temp 98.3 98.5 97.6 98.3 98.5 97.6 Pulse 80 80 92 Resp 18 18 18 B/P (MAP) 145/78 (100) 127/78 (94) 146/83 (104) Pulse Ox 100 100 98 O2 Delivery Room Air Room Air Room Air Room Air 02/13/20 02/14/20 22:15 02:38 Temp 97.8 98.1 97.8 98.1 Pulse 92 80 Resp 18 18 B/P (MAP) 142/81 (101) 165/92 (116) Pulse Ox 97 100 O2 Delivery Room Air Room Air Intake and Output 02/13/20 02/13/20 02/14/20 15:00 23:00 07:00 Intake Total 400 ml 520 ml 1300 ml Output Total 425 ml Balance 400 ml 95 ml 1300 ml Justicifation of Admission Dx: Justifications for Admission: Justification of Admission Dx: N/A SHARON OROZCO MD Feb 14, 2020 08:22
--- NOTE | 2020-02-14 11:59 | NUR ---
SS following up with discharge planning. SS reviewed pt chart and discussed with pt RN. Pt is currently on room air. Pt on IV Rocephin. COVID19 test pending. SS discussed dialysis with Dr. Persaud. Pt does need outpatient set up for dialysis. SS phoned and faxed referral to [facility], ; fax [phone]. SS will continue to follow for discharge planning.
--- NOTE | 2020-02-14 12:15 | PDOC ---
Date of Service: DATE: 02/14/20 TIME: 12:11 Subjective: Subjective: Denies diarrhea. Asks about discharge. Objective: Objective: D/w nurse - stooled yesterday, not done. Tolerating diet but doesn't care for the food. Vital Signs: Vital Signs Date Time Temp Pulse Resp B/P (MAP) Pulse Ox O2 Delivery O2 Flow Rate FiO2 02/14/20 07:00 97.9 75 18 153/84 (107) 97 Room Air 97.9 Labs: Laboratory Tests Test 02/13/20 12:12 02/13/20 14:35 02/13/20 17:10 02/13/20 20:32 Glucose (Fingerstick) 95 mg/dL 124 mg/dL 135 mg/dL Iron Level 35 ug/dL Total Iron Binding Capacity 161 ug/dL Iron Saturation 22 % Test 02/14/20 05:05 02/14/20 07:58 Sodium Level 140 mmol/L Potassium Level 4.7 mmol/L Chloride Level 113 mmol/L Carbon Dioxide Level 14 mmol/L Anion Gap 13 Blood Urea Nitrogen 61 mg/dL Creatinine 4.0 mg/dL Estimated GFR (Cockcroft-Gault) 18.6 Glucose Level 108 mg/dL Calcium Level 7.1 mg/dL Glucose (Fingerstick) 108 mg/dL BLOOD CULTURE Preliminary NO GROWTH AFTER 1 DAY PE: GEN: dialyzing LUNGS: CTAB HEART: RRR ABD: S/ND/NT NEURO/PSYCH: A & O 3 A/P: CKD/ESRD, urinary retention, UTI ACD Weight loss Diarrhea - not impressive here; C Diff, enteric panel, and celiac serology ordered; started fibercon Hep C - normal AFP -- Stable from GI standpoint; labs pending. Justicifation of Admission Dx: Justifications for Admission: Justification of Admission Dx: N/A ANDREAS BRAVO Feb 14, 2020 12:15
[2020-02-14] MEDS: LACTOBACILLUS RHAMNOSUS GG 1 CAPSULE. PO SCH ×2 (12:43→22:24)
[2020-02-14] MEDS: LOPERAMIDE 2 MG CAPSULE PO SCH ×2 (12:43→22:24)
--- NOTE | 2020-02-14 12:44 | PDOC ---
DATE OF SERVICE DATE: 02/14/20 TIME: 12:40 SUBJECTIVE ROS No complaints Seen on Dialysis OBJECTIVE Vital Signs Vital Signs Date Time Temp Pulse Resp B/P (MAP) Pulse Ox O2 Delivery O2 Flow Rate FiO2 02/14/20 07:00 97.9 75 18 153/84 (107) 97 Room Air 97.9 I & 0 Intake and Output 02/14/20 06:59 Intake Total 2220 ml Output Total 425 ml Balance 1795 ml Intake Oral 1020 ml IV Total 1200 ml Output Urine Total 425 ml PHYSICAL EXAM Physical Exam GEN: NAD, propped up in bed HEEN OM moist, No icterus, On RA NECK Supple CV: S1S2, No Rub RESP: CTA, No acc muscle use GI: BS + ve, , Non Tender, Non Distended NEUR AxOx 3, Grossly No neurologic symptoms , No Asterxis : No CVA tenderness, no Suprapubic Tenderness, Chronic Mendoza in place (changed 02/11) SKIN No rash, no itiching EXT- No LE edema, No cyanosis , AV access Lt UE DIAGNOSIS/ASSESSMENT Assessment & Plan ESRD - UTI , ?Non compliance,Chronic diarrhea , No fu labs since September per patient , No records available from [place] Has been on HD since January 2019, taken Off SeptemberOctober 2019 in [place] - per patient Per patient report he was going for HD as needed in [place] but in he was going 3 x week- " [facility] was trying to kill me " No signiifcant improvement in Renal function, started back on HD , seen during treatment , tolerating well, continue as ordered, Shant BARRIGA arranging for OP Chair time He insists he will not go 3 x week and treatments should be based on his labs and symptoms ' Doubt Compliance CT unremarkable Kidneys Access - Lt Upper Ext AV access HyperKalemia-resolve d Metabolic acidosis - HD today Anemia - No indication for SAMIRA Urinary retention- Chronic indwelling catheter since 2018 , pt not aware of details No fu with Urology, reports its changed every month, Catheter changed in ER CT diffuse urinary bladder wall thickening. ?UTI- asymptomatic , UA cw UTI primary managing Chronic Diarrhea - per patient, extensive azul done. Defer to primary Fluid-filled bowel loops, compatible with an acute diarrheal illness No bowel obstruction or perforation. COMMENT/RELEVANT DATA Meds Current Medications Medications (Trade) Dose Ordered Sig/Kirill Start Time Stop Time Status Last Admin Dose Admin Acetaminophen (Tylenol) 650 mg PRN Q4HRS PRN 02/12/20 14:45 Albumin Human 200 ml @ 200 mls/hr 1X PRN PRN 02/14/20 07:30 02/14/20 13:29 Albuterol Sulfate (Ventolin Neb Soln) 2.5 mg PRN Q4HRS PRN 02/12/20 14:45 Calcium Polycarbophil (Fibercon) 625 mg QODAY 02/13/20 15:00 02/13/20 15:16 625 MG Ceftriaxone Sodium (Rocephin) 1 gm Q24H 02/13/20 15:00 02/13/20 15:17 1 GM Clonidine HCl (Catapres) 0.1 mg PRN Q6HRS PRN 02/12/20 14:45 02/12/20 20:08 0.1 MG Dextrose (Dextrose 50%-Water Syringe) 12.5 gm PRN Q15MIN PRN 02/12/20 15:00 Docusate Sodium (Colace) 100 mg PRN BID PRN 02/12/20 14:45 Guaifenesin (Robitussin) 200 mg PRN Q4HRS PRN 02/12/20 14:45 Heparin Sodium (Porcine) (Heparin Sodium) 5,000 unit Q8HRS 02/12/20 22:00 02/14/20 05:02 5,000 UNIT Info (CONTRAST GIVEN -- Rx MONITORING) 1 each PRN DAILY PRN 02/12/20 12:00 02/14/20 11:59 DC Info (PHARMACY MONITORING -- do not chart) 1 each PRN DAILY PRN 02/14/20 07:30 Insulin Human Lispro (HumaLOG) 0-5 UNITS TIDWMEALS 02/12/20 17:00 Iohexol (Omnipaque 300 Mg/ml) 100 ml STK-MED ONCE 02/12/20 11:50 02/12/20 11:50 DC Lactobacillus Rhamnosus (Culturelle) 1 cap BID 02/13/20 21:00 02/13/20 20:11 1 CAP Loperamide HCl (Imodium) 2 mg BID 02/12/20 21:00 02/13/20 20:11 2 MG Ondansetron HCl (Zofran) 4 mg PRN Q4HRS PRN 02/12/20 14:45 Sodium Chloride 1,000 ml @ 400 mls/hr Q2H30M PRN 02/14/20 07:24 02/14/20 19:23 Sodium Chloride (Normal Saline Flush) 3 ml QSHIFT PRN 02/12/20 14:45 Lab Laboratory Tests Test 02/13/20 14:35 02/13/20 17:10 02/13/20 20:32 02/14/20 05:05 Iron Level 35 ug/dL (65-175) Total Iron Binding Capacity 161 ug/dL (250-450) Iron Saturation 22 % (15-34) Glucose (Fingerstick) 124 mg/dL (70-99) 135 mg/dL (70-99) Sodium Level 140 mmol/L (136-145) Potassium Level 4.7 mmol/L (3.5-5.1) Chloride Level 113 mmol/L (98-107) Carbon Dioxide Level 14 mmol/L (21-32) Anion Gap 13 (6-14) Blood Urea Nitrogen 61 mg/dL (8-26) Creatinine 4.0 mg/dL (0.7-1.3) Estimated GFR (Cockcroft-Gault) 18.6 Glucose Level 108 mg/dL (70-99) Calcium Level 7.1 mg/dL (8.5-10.1) Test 02/14/20 07:58 Glucose (Fingerstick) 108 mg/dL (70-99) Results All relevant outside records, renal labs, imaging studies, telemetry/EKG's were reviewed. Justicifation of Admission Dx: Justifications for Admission: Justification of Admission Dx: N/A MARI HENRY MD Feb 14, 2020 12:44
[2020-02-14] MEDS: cefTRIAXone IV Push 1 GM VIAL. IVP SCH (14:57)
[2020-02-14 15:00] VITALS: BP 173/85
[2020-02-14 19:57] VITALS: BP 127/69
[2020-02-14 23:18] VITALS: BP 149/82
[2020-02-15 03:12] VITALS: BP 169/88
[2020-02-15] MEDS: HEPARIN for SUB-Q USE 5,000 UNIT/ML VIAL. SQ SCH (06:00)
[2020-02-15 07:00] VITALS: BP 152/83
[2020-02-15] MEDS: INSULIN LISPRO 300 UNITS/3 ML VIAL. SQ SCH (08:00)
[2020-02-15] MEDS: LACTOBACILLUS RHAMNOSUS GG 1 CAPSULE. PO SCH (08:47)
[2020-02-15] MEDS: CALCIUM POLYCARBOPHIL 625 MG TABLET PO SCH (08:47)
[2020-02-15] MEDS: LOPERAMIDE 2 MG CAPSULE PO SCH (08:47)
--- NOTE | 2020-02-15 10:11 | PDOC ---
Date of Service: DATE: 02/15/20 TIME: 10:07 Subjective: Subjective: Says just had a stool - "diarrhea." Says diarrhea is better here compared to at home. Wonders when he can leave. Objective: Objective: D/w nurse - no diarrhea. Vital Signs: Vital Signs Date Time Temp Pulse Resp B/P (MAP) Pulse Ox O2 Delivery O2 Flow Rate FiO2 02/15/20 08:00 Room Air 02/15/20 07:00 98.1 74 16 152/83 (106) 100 98.1 Labs: Laboratory Tests Test 02/14/20 12:51 02/14/20 16:52 02/14/20 21:12 02/15/20 07:47 Glucose (Fingerstick) 74 mg/dL 151 mg/dL 164 mg/dL 126 mg/dL BLOOD CULTURE Preliminary NO GROWTH AFTER 2 DAYS PE: GEN: NAD LUNGS: CTAB HEART: RRR ABD: NABS, S/ND/NT NEURO/PSYCH: A & O 3 A/P: CKD/ESRD, urinary retention, UTI ACD Diarrhea Hep C -- Diarrhea better - stooled today but stool test uncollected - says has a hat in commode for collection now. Celiac serology pending. Dc per primary/renal. Continue FiberCon; can follow-up w/ GI as outpt. Justicifation of Admission Dx: Justifications for Admission: Justification of Admission Dx: N/A ANDREAS BRAVO Feb 15, 2020 10:11
[2020-02-15 10:46] LABS: BASO % 1 % (0-3); EOS % 1 % (0-3); HEMATOCRIT 27.2 % (39.0-53.0); HEMOGLOBIN 9.4 g/dL (13.0-17.5); LYMPH # 0.8 x10^3/uL (1.0-4.8); LYMPH % 21 % (24-48); MEAN CORPUSCULAR HEMOGLOBIN 29 pg (25-35); MEAN CORPUSCULAR HGB CONC 34 g/dL (31-37); MEAN CORPUSCULAR VOLUME 84 fL (79-100); MONO # 0.3 x10^3/uL (0.0-1.1); MONO % 8 % (0-9); NEUT # 2.7 x10^3/uL (1.8-7.7); NEUT % 70 % (31-73); PLATELET COUNT 100 x10^3/uL (140-400); RED BLOOD COUNT 3.23 x10^6/uL (4.30-5.70); RED CELL DISTRIBUTION WIDTH 15.1 % (11.5-14.5); WHITE BLOOD COUNT 3.9 x10^3/uL (4.0-11.0)
--- NOTE | 2020-02-15 10:46 | NUR ---
SS following up with discharge planning. SS reviewed pt chart and discussed with pt RN. Pt is currently on room air. COVID19 test pending. Pt on IV Rocephin. Pt has confirmed chair time at [facility], ; fax [phone], Wednesday, Wednesday, and Wednesday at 1600. Pt's first chair time is on 02/16/2020 and pt needs to arrive at 1530. Dialysis information provided to pt. Discharge plan is to home possible today. SS will continue to follow for discharge planning.
[2020-02-15 10:51] VITALS: BP 144/77
[2020-02-15 11:06] LABS: ALBUMIN 2.1 g/dL (3.4-5.0); ALBUMIN/GLOBULIN RATIO 0.6 (1.0-1.7); CALCIUM 7.3 mg/dL (8.5-10.1); CREATININE 2.8 mg/dL (0.7-1.3); POTASSIUM 3.5 mmol/L (3.5-5.1); TOTAL BILIRUBIN 0.4 mg/dL (0.2-1.0); TOTAL PROTEIN 5.5 g/dL (6.4-8.2)
--- NOTE | 2020-02-15 11:27 | PDOC ---
[employer] PROGRESS NOTE Date of Service DOS: DATE: 02/15/20 TIME: 10:53 Chief Complaint Chief Complaint Acute Renal Injury on chronic renal failure Acute cystitis Multiple fluid filled small bowel loops- compatible with acute diarrheal illness Diabetes Type 2 HTN Cholelithiasis Diffuse bladder wall thickening History of Present Illness History of Present Illness Identification/Chief Complaint Chief Complaint seen in ER with acute on chronic renal failure 59 year old male who presents with wanting his Mendoza catheter changed as he has not had a change since January 03 and before that it was 2 months prior. Has had a Mendoza catheter for over a year due to urinary retention that was placed at of which he was following up at . He recently moved back from [place]. he does not have a PCP here yet. He does go to wound care for wounds on his feet from his diabetes 02-12 He states he has not been to wound care for over a month. states that before he moved to [place] he was getting dialysis 3 times a week at [facility]. He states when he moved to [place] they stated that his diabetes was not checked and his blood work was fine and he no longer needed dialysis. states in [place] they told him to come back in 2 weeks and checked his blood work and if he did need dialysis they said to come back in 1 month and he stated that he did not need dialysis so he is not on dialysis in a year. 02/14 Pt seen and examined. MARILUZ RN and DW case management. Pt is laying in bed and is ready for dialysis. Past Medical History Past Medical History Past Medical History Past Medical History Past Medical History: Diabetes-Type II, Hypertension, Other Additional Past Medical Histor: RETENTION Past Surgical History: Other Additional Past Surgical Histo: "I'VE HAD 5 OR 6 SURGERIES BUT I DON'T KNOW WHAT THEY WERE FOR OR NAMES" Smoking Status: stopped drug use 30 yrs ago Alcohol Use: None Drug Use: None fhx htn Cardiovascular: HTN CENTRAL NERVOUS SYSTEM: Periperal neuropathy Hepatobiliary: Hep A/B/C Endocrine: Diabetes Past Surgical History Past Surgical History: Other Family History Family History: Cancer, Diabetes, Hypertension, Stroke Social History Smoke: No ALCOHOL: none Drugs: None, Other Current Problem List Problem List Problems Medical Problems: (1) Acute renal failure Status: Acute Vitals/I&O Vitals/I&O: Vital Signs Date Time Temp Pulse Resp B/P (MAP) Pulse Ox O2 Delivery O2 Flow Rate FiO2 02/15/20 10:51 98.1 81 16 144/77 (99) 100 Room Air 98.1 I & O 02/14/20 02/14/20 02/15/20 15:00 23:00 07:00 Intake Total 300 ml 900 ml Output Total 1000 ml Balance 300 ml -100 ml Physical Exam General: Alert, Oriented X3, Cooperative, No acute distress Heart: Regular rate, Normal S1 Lungs: Clear Abdomen: Normal bowel sounds, Soft, No tenderness Extremities: No clubbing, No cyanosis, No edema Labs Labs: Laboratory Tests Test 02/14/20 12:51 02/14/20 16:52 02/14/20 21:12 02/15/20 07:47 Glucose (Fingerstick) 74 mg/dL (70-99) 151 mg/dL (70-99) 164 mg/dL (70-99) 126 mg/dL (70-99) Review of Systems Review of Systems: No headaches. No SOA. Assessment and Plan Assessmemt and Plan Problems Medical Problems: (1) Acute renal failure Status: Acute Acute Renal Injury on chronic renal failure Acute cystitis Multiple fluid filled small bowel loops- compatible with acute diarrheal illness Diabetes Type 2 HTN Cholelithiasis Diffuse bladder wall thickening Plan: Arrange chair time Will discharge so discuss with SW Left Rx for Po Augmentin Full code Comment Review of Relevant I have reviewed the following items kenneth (where applicable) has been applied. Justifications for Admission Other Justification ESTRELLA HUIZAR III DO Feb 15, 2020 11:27
[2020-02-15] MEDS ORDERED: AMOX1TAB61 PO ×3 (11:47→11:50)
--- NOTE | 2020-02-15 12:23 | PDOC ---
DATE OF SERVICE DATE: 02/15/20 TIME: 12:22 SUBJECTIVE ROS No complaints OBJECTIVE Vital Signs Vital Signs Date Time Temp Pulse Resp B/P (MAP) Pulse Ox O2 Delivery O2 Flow Rate FiO2 02/15/20 10:51 98.1 81 16 144/77 (99) 100 Room Air 98.1 I & 0 Intake and Output 02/15/20 07:00 Intake Total 1200 ml Output Total 1000 ml Balance 200 ml Intake Oral 1200 ml Output Urine Total 1000 ml # Bowel Movements 1 PHYSICAL EXAM Physical Exam GEN: NAD, HEEN OM moist, No icterus, On RA NECK Supple CV: S1S2, No Rub RESP: CTA, No acc muscle use GI: BS + ve, , Non Tender, Non Distended NEUR AxOx 3, Grossly No neurologic symptoms , No Asterxis : No CVA tenderness, no Suprapubic Tenderness, Chronic Mendoza in place (changed 02/11) SKIN No rash, no itiching EXT- No LE edema, No cyanosis , AV access Lt UE DIAGNOSIS/ASSESSMENT Assessment & Plan ESRD - UTI , ?Non compliance,Chronic diarrhea , No fu labs since September per patient , No records available from [place] Has been on HD since January 2019, taken Off SeptemberOctober 2019 in [place] - per patient Per patient report he was going for HD as needed in [place] but in he was going 3 x week- " Elías was trying to kill me " No signiifcant improvement in Renal function, Back on HD , 1 st treatment on 02/13, OP scheduled for MWF , will start from tomorrow SHe insists he will not go 3 x week and treatments should be based on his labs and symptoms ' Non Compliance CT unremarkable Kidneys Access - Lt Upper Ext AV access HyperKalemia-resolve d Metabolic acidosis - HD today Anemia - No indication for SAMIRA Urinary retention- Chronic indwelling catheter since 2018 , pt not aware of details No fu with Urology, reports its changed every month, Catheter changed in ER CT diffuse urinary bladder wall thickening. ?UTI- asymptomatic , UA cw UTI primary managing Chronic Diarrhea - per patient, extensive azul done. Defer to primary Fluid-filled bowel loops, compatible with an acute diarrheal illness No bowel obstruction or perforation. COMMENT/RELEVANT DATA Meds Current Medications Medications (Trade) Dose Ordered Sig/Kirill Start Time Stop Time Status Last Admin Dose Admin Acetaminophen (Tylenol) 650 mg PRN Q4HRS PRN 02/12/20 14:45 Albumin Human 200 ml @ 200 mls/hr 1X PRN PRN 02/14/20 07:30 02/14/20 13:29 DC Albuterol Sulfate (Ventolin Neb Soln) 2.5 mg PRN Q4HRS PRN 02/12/20 14:45 Calcium Polycarbophil (Fibercon) 625 mg QODAY 02/13/20 15:00 02/15/20 08:47 625 MG Ceftriaxone Sodium (Rocephin) 1 gm Q24H 02/13/20 15:00 02/14/20 14:57 1 GM Clonidine HCl (Catapres) 0.1 mg PRN Q6HRS PRN 02/12/20 14:45 02/12/20 20:08 0.1 MG Dextrose (Dextrose 50%-Water Syringe) 12.5 gm PRN Q15MIN PRN 02/12/20 15:00 Docusate Sodium (Colace) 100 mg PRN BID PRN 02/12/20 14:45 Guaifenesin (Robitussin) 200 mg PRN Q4HRS PRN 02/12/20 14:45 Heparin Sodium (Porcine) (Heparin Sodium) 5,000 unit Q8HRS 02/12/20 22:00 02/14/20 22:28 5,000 UNIT Info (CONTRAST GIVEN -- Rx MONITORING) 1 each PRN DAILY PRN 02/12/20 12:00 02/14/20 11:59 DC Info (PHARMACY MONITORING -- do not chart) 1 each PRN DAILY PRN 02/14/20 07:30 Insulin Human Lispro (HumaLOG) 0-5 UNITS TIDWMEALS 02/12/20 17:00 Iohexol (Omnipaque 300 Mg/ml) 100 ml STK-MED ONCE 02/12/20 11:50 02/12/20 11:50 DC Lactobacillus Rhamnosus (Culturelle) 1 cap BID 02/13/20 21:00 02/15/20 08:47 1 CAP Loperamide HCl (Imodium) 2 mg BID 02/12/20 21:00 02/15/20 08:47 2 MG Ondansetron HCl (Zofran) 4 mg PRN Q4HRS PRN 02/12/20 14:45 Sodium Chloride 1,000 ml @ 400 mls/hr Q2H30M PRN 02/14/20 07:24 02/14/20 19:23 DC Sodium Chloride (Normal Saline Flush) 3 ml QSHIFT PRN 02/12/20 14:45 Lab Laboratory Tests Test 02/14/20 12:51 02/14/20 16:52 02/14/20 21:12 02/15/20 07:47 Glucose (Fingerstick) 74 mg/dL (70-99) 151 mg/dL (70-99) 164 mg/dL (70-99) 126 mg/dL (70-99) Test 02/15/20 10:05 White Blood Count 3.9 x10^3/uL (4.0-11.0) Red Blood Count 3.23 x10^6/uL (4.30-5.70) Hemoglobin 9.4 g/dL (13.0-17.5) Hematocrit 27.2 % (39.0-53.0) Mean Corpuscular Volume 84 fL (79-100) Mean Corpuscular Hemoglobin 29 pg (25-35) Mean Corpuscular Hemoglobin Concent 34 g/dL (31-37) Red Cell Distribution Width 15.1 % (11.5-14.5) Platelet Count 100 x10^3/uL (140-400) Neutrophils (%) (Auto) 70 % (31-73) Lymphocytes (%) (Auto) 21 % (24-48) Monocytes (%) (Auto) 8 % (0-9) Eosinophils (%) (Auto) 1 % (0-3) Basophils (%) (Auto) 1 % (0-3) Neutrophils # (Auto) 2.7 x10^3/uL (1.8-7.7) Lymphocytes # (Auto) 0.8 x10^3/uL (1.0-4.8) Monocytes # (Auto) 0.3 x10^3/uL (0.0-1.1) Eosinophils # (Auto) 0.0 x10^3/uL (0.0-0.7) Basophils # (Auto) 0.0 x10^3/uL (0.0-0.2) Sodium Level 140 mmol/L (136-145) Potassium Level 3.5 mmol/L (3.5-5.1) Chloride Level 104 mmol/L (98-107) Carbon Dioxide Level 30 mmol/L (21-32) Anion Gap 6 (6-14) Blood Urea Nitrogen 26 mg/dL (8-26) Creatinine 2.8 mg/dL (0.7-1.3) Estimated GFR (Cockcroft-Gault) 28.0 BUN/Creatinine Ratio 9 (6-20) Glucose Level 164 mg/dL (70-99) Calcium Level 7.3 mg/dL (8.5-10.1) Total Bilirubin 0.4 mg/dL (0.2-1.0) Aspartate Amino Transf (AST/SGOT) 28 U/L (15-37) Alanine Aminotransferase (ALT/SGPT) 24 U/L (16-63) Alkaline Phosphatase 52 U/L (46-116) Total Protein 5.5 g/dL (6.4-8.2) Albumin 2.1 g/dL (3.4-5.0) Albumin/Globulin Ratio 0.6 (1.0-1.7) Results All relevant outside records, renal labs, imaging studies, telemetry/EKG's were reviewed. Justicifation of Admission Dx: Justifications for Admission: Justification of Admission Dx: N/A MARI HENRY MD Feb 15, 2020 12:23
--- NOTE | 2020-02-15 12:48 | NUR ---
Discharge Note: ALISA VILLARREAL Discharge instructions and discharge home medications reviewed with Patient and a copy given. All questions have been answered and understanding verbalized. The following instructions and handouts were given: renal dialysis diet and malnutrition. Discontinued iv line and catheter intact. Patient discharged to home with self-care via private vehicle.
[2020-02-15 22:11] LABS: GLIA IGA 3 units (0-19); GLIA IGG 2 units (0-19); TRANSGLUTAMINASE IGA AB <2 U/mL (0-3); TRANSGLUTAMINASE IGG AB 5 U/mL (0-5)
== END 2020-02-15 12:15 | disposition home or self-care (01) | DRG 682 ==
LOC: ER 10:33 → 2 NORTH 13:58
PROVIDERS: ADMIT Internal Medicine; ATTEND Internal Medicine
PROC: 5A1D70Z Performance of Urinary Filtration, Intermittent, Less than 6 Hours Per Day (ICD-10-PCS; principal; 2020-02-14)
DX: N17.9 Acute kidney failure, unspecified (principal); E43 Unspecified severe protein-calorie malnutrition; N39.0 Urinary tract infection, site not specified; K80.00 Calculus of gallbladder with acute cholecystitis without obstruction; E87.2 Acidosis; Z68.1 Body mass index [BMI] 19.9 or less, adult; I12.0 Hypertensive chronic kidney disease with stage 5 chronic kidney disease or end stage renal disease; E11.42 Type 2 diabetes mellitus with diabetic polyneuropathy; D69.6 Thrombocytopenia, unspecified; D53.9 Nutritional anemia, unspecified; N18.6 End stage renal disease; E11.22 Type 2 diabetes mellitus with diabetic chronic kidney disease; B19.20 Unspecified viral hepatitis C without hepatic coma; E87.5 Hyperkalemia; K52.9 Noninfective gastroenteritis and colitis, unspecified; K76.0 Fatty (change of) liver, not elsewhere classified; Z65.3 Problems related to other legal circumstances; Z91.19 Patient's noncompliance with other medical treatment and regimen; Z88.8 Allergy status to other drugs, medicaments and biological substances; Z99.2 Dependence on renal dialysis; Z82.3 Family history of stroke; Z83.3 Family history of diabetes mellitus; Z80.9 Family history of malignant neoplasm, unspecified; Z82.49 Family history of ischemic heart disease and other diseases of the circulatory system
CPT/HCPCS: 36415; 51702; 71045; 74176; 80048; 80053; 80069; 80307; 81001; 82010; 82105; 82550; 82962; 83036; 83516; 83540; 83550; 83605; 83690; 84484; 85025; 85610; 86704; 86706; 87040; 87086; 87340; 93005; 96361; 96374; 99285; J0696; J1644; J1815; J7030; U0003; G0378

== ENCOUNTER 2020-03-22 12:17 | Emergency (ER) | payer OTHER ==
[~2020-03-22] VITALS: Ht 177.8 cm; Wt 53.0 kg
[~2020-03-22 12:17] MED LIST changes: +AMOX1TAB61 PO; +LOPE-101 PO
[2020-03-22 12:29] VITALS: BP 162/89
--- NOTE | 2020-03-22 12:40 | PHYS DOC ---
Past Medical History Past Medical History: Diabetes-Type II, Hypertension, Other Additional Past Medical Histor: RETENTION Past Surgical History: Other Additional Past Surgical Histo: "I'VE HAD 5 OR 6 SURGERIES BUT I DON'T KNOW WHAT THEY WERE FOR OR NAMES" Smoking Status: Never Smoker Alcohol Use: None Drug Use: None General Adult EDM: Chief Complaint: CATHETER CHANGE HPI: HPI: Patient is a 59 year old male who presents with on February 11 had a Mendoza catheter placed for urinary retention he was also seen for acute renal failure. Patient states that he has primary care appointment next week and he has been following up with doctors as he should be. He states that he just needs his Mendoza catheter replaced today. Patient denies abdominal pain, nausea, vomiting, diarrhea, leakage of urine around Mendoza, fever, back pain, chest pain, shortness of breath, dizziness, headache. Patient states he has had no complication and he is feeling good. Patient denies any pain. Review of Systems: Review of Systems: Constitutional: Denies fever or chills. [] Eyes: Denies change in visual acuity. [] HENT: Denies nasal congestion or sore throat. [] Respiratory: Denies cough or shortness of breath. [] Cardiovascular: Denies chest pain or edema. [] GI: Denies abdominal pain, nausea, vomiting, bloody stools or diarrhea. [] : Denies dysuria. + Mendoza catheter change [] Musculoskeletal: Denies back pain or joint pain. [] Integument: Denies rash. [] Neurologic: Denies headache, focal weakness or sensory changes. [] Endocrine: Denies polyuria or polydipsia. [] Lymphatic: Denies swollen glands. [] Psychiatric: Denies depression or anxiety. [] Heart Score: Risk Factors: Risk Factors: DM, Current or recent (<one month) smoker, HTN, HLP, family history of CAD, obesity. Risk Scores: Score 0 - 3: 2.5% MACE over next 6 weeks - Discharge Home Score 4 - 6: 20.3% MACE over next 6 weeks - Admit for Clinical Observation Score 7 - 10: 72.7% MACE over next 6 weeks - Early Invasive Strategies Allergies: Allergies: Allergies Coded Allergies Type Severity Reaction Last Updated Verified I S O L A T I O N *CONTACT* Allergy Unknown 08/10/17 Yes No Known Medication Allergies Allergy Unknown 08/10/17 Yes Physical Exam: PE: Constitutional: Well developed, well nourished, no acute distress, non-toxic appearance. [] HENT: Normocephalic, atraumatic, bilateral external ears normal, oropharynx moist, no oral exudates, nose normal. [] Eyes: PERRLA, EOMI, conjunctiva normal, no discharge. [] Neck: Normal range of motion, no tenderness, supple, no stridor. [] Cardiovascular:Heart rate regular rhythm, no murmur [] Lungs & Thorax: Bilateral breath sounds clear to auscultation [] Abdomen: Bowel sounds normal, soft, no tenderness, no masses, no pulsatile masses. Mendoza catheter in place draining yellow urine. [] Skin: Warm, dry, no erythema, no rash. [] Back: No tenderness, no CVA tenderness. [] Extremities: No tenderness, no cyanosis, no clubbing, ROM intact, no edema. [] Neurologic: Alert and oriented X 3, normal motor function, normal sensory function, no focal deficits noted. [] Psychologic: Affect normal, judgement normal, mood normal. [] EKG: EKG: [] Radiology/Procedures: Radiology/Procedures: [] Course & Med Decision Making: Course & Med Decision Making Pertinent Labs and Imaging studies reviewed. (See chart for details) See HPI. Speaks in full complete sentences. Ambulatory with a steady gait. Alert and oriented x4. Afebrile. Mendoza catheter is in place and draining yellow urine upon arrival. Mendoza catheter is removed and a new Mendoza catheter was placed without complication. New Mendoza catheter is draining without com plication. [] Dragon Disclaimer: Dragon Disclaimer: This electronic medical record was generated, in whole or in part, using a voice recognition dictation system. Departure Departure Impression: Primary Impression: Urinary catheter change required Disposition: 01 DC HOME SELF CARE/HOMELESS Condition: STABLE Referrals: NO PCP (PCP) Patient Instructions: Mendoza Catheter Care, Adult, Indwelling Urinary Catheter Care-Brief Additional Instructions: Follow-up with primary care physician and urology or nephrology as scheduled. If you begin having fever, vomiting, abdominal pain or back pain return to the emergency room. MARION HWANG APRN Mar 22, 2020 12:40
== END 2020-03-22 13:32 | disposition home or self-care (01) ==
LOC: ER 12:17
DX: R33.9 Retention of urine, unspecified (principal); E11.9 Type 2 diabetes mellitus without complications; I10 Essential (primary) hypertension; Z98.890 Other specified postprocedural states; Z88.8 Allergy status to other drugs, medicaments and biological substances
CPT/HCPCS: 51702; 99284

== ENCOUNTER 2020-05-03 11:47 | Emergency (ER) | payer OTHER ==
[~2020-05-03] VITALS: Ht 177.8 cm; Wt 68.0 kg
--- NOTE | 2020-05-03 12:26 | ED.ADGEN ---
Past Medical History Past Medical History: Diabetes-Type II, Hypertension, Other Additional Past Medical Histor: RETENTION Past Surgical History: Other Additional Past Surgical Histo: "I'VE HAD 5 OR 6 SURGERIES BUT I DON'T KNOW WHAT THEY WERE FOR OR NAMES" Smoking Status: Never Smoker Alcohol Use: None Drug Use: None General Adult EDM: Chief Complaint: CATHETER CHANGE HPI: HPI: Patient is a 59 year old AA male who presents emergency department with request for Mendoza catheter change. Patient reports he was last here on March 22 and had his catheter replaced at that time. Patient reports that his urine has looked cloudy and has been blood-tinged recently. He denies any fever, abdominal pain, nausea, vomiting, diarrhea, cough, shortness of breath, body aches, or fatigue. Patient states he would like to make sure that he does not have a urinary tract infection. He denies any back pain. Patient also denies any bleeding or urine leakage at the urethral meatus. He currently denies any pain or complaints. Review of Systems: Review of Systems: Complete ROS is negative unless otherwise noted in HPI. Allergies: Allergies: Allergies Coded Allergies Type Severity Reaction Last Updated Verified I S O L A T I O N *CONTACT* Allergy Unknown 08/10/17 Yes No Known Medication Allergies Allergy Unknown 08/10/17 Yes Physical Exam: PE: See Above Constitutional: Well developed, well nourished, no acute distress, non-toxic appearance. [] HENT: Normocephalic, atraumatic, bilateral external ears normal, nose normal. [] Eyes: PERRLA, EOMI, conjunctiva normal, no discharge. [] Neck: Normal range of motion, no stridor. [] Cardiovascular:Heart rate regular rhythm Lungs & Thorax: Respirations even and unlabored, no retractions, no respiratory distress Male : Mendoza catheter in place, draining cloudy blood-tinged urine, no drainage at urethral meatus Skin: Warm, dry, no erythema, no rash. [] Extremities: No cyanosis, ROM intact, no edema. [] Neurologic: Alert and oriented X 3, no focal deficits noted. [] Psychologic: Affect normal, judgement normal, mood normal. [] Current Patient Data: Vital Signs: Vital Signs Date Time Temp Pulse Resp B/P (MAP) Pulse Ox O2 Delivery O2 Flow Rate FiO2 05/03/20 11:57 97.6 95 16 161/93 (115) 100 Room Air 97.6 EKG: EKG: [] Heart Score: Risk Factors: Risk Factors: DM, Current or recent (<one month) smoker, HTN, HLP, family history of CAD, obesity. Risk Scores: Score 0 - 3: 2.5% MACE over next 6 weeks - Discharge Home Score 4 - 6: 20.3% MACE over next 6 weeks - Admit for Clinical Observation Score 7 - 10: 72.7% MACE over next 6 weeks - Early Invasive Strategies Radiology/Procedures: Radiology/Procedures: [] Course & Med Decision Making: Course & Med Decision Making Pertinent Labs and Imaging studies reviewed. (See chart for details) 1252-Pt refuses to wait for UA collection, states he would like to go home now. He just wanted his catheter replaced. He continues to deny any complaints. [] Eddaon Disclaimer: Dragon Disclaimer: This electronic medical record was generated, in whole or in part, using a voice recognition dictation system. Departure Departure Impression: Primary Impression: Urinary catheter change required Disposition: 01 DC HOME SELF CARE/HOMELESS Condition: STABLE Referrals: UNKNOWN PCP NAME (PCP) Patient Instructions: Mendoza Catheter Care, Adult Additional Instructions: Follow up with your primary care doctor as planned, return to the ER if you develop a fever, abdominal pain, back pain, or any problems with your catheter. RADHA TORRES APRN May 03, 2020 12:26
[2020-05-03 12:32] VITALS: BP 187/101
== END 2020-05-03 13:06 | disposition home or self-care (01) ==
LOC: ER 11:47
DX: T83.018A Breakdown (mechanical) of other urinary catheter, initial encounter (principal); E11.9 Type 2 diabetes mellitus without complications; I10 Essential (primary) hypertension; Z98.890 Other specified postprocedural states; Z88.8 Allergy status to other drugs, medicaments and biological substances
CPT/HCPCS: 51702; 99284

== ENCOUNTER 2021-05-26 11:04 | Day surgery (SDC) | payer OTHER ==
[~2021-05-26] VITALS: Ht 177.8 cm; Wt 54.5 kg
[~2021-05-26 11:04] MED LIST changes: +AMLO-186 PO; +AMOX1TAB58 PO; +DEXT15DR5 EACHEYE; +DOXY100C3 PO; +ERGO500089 PO; +HEPARIN SODIUM 1,000 UNIT in IV NORMAL SALINE 100ML 100 ML IRR PRN; +HYDROmorphone 2 MG/ML INJ. IVP PRN; +IV RINGERS,LACTATED 1000ML 1,000 ML IV SCH; +LIPA1CAP43 PO; -LISI-334 PO; +LISI10TA16 PO; -LISI10TA2 PO; +LISI20TA18 PO; +MORPHINE SULFATE 2 MG/ML INJ. IVP PRN; +PROCHLORPERAZINE 10 MG/2 ML VIAL. IVP PRN; +fentaNYL PF VIAL 100 MCG/2 ML VIAL IVP PRN
[2021-05-26 11:40] VITALS: BP 127/79
[2021-05-26] MEDS ORDERED: IV NORMAL SALINE 1000ML BAG 1,000 ML IV SCH (11:45)
[2021-05-26 11:54] LABS: BASO % 1 % (0-3); EOS % 1 % (0-3); HEMATOCRIT 29.7 % (39.0-53.0); HEMOGLOBIN 9.7 g/dL (13.0-17.5); LYMPH # 1.2 x10^3/uL (1.0-4.8); LYMPH % 19 % (24-48); MEAN CORPUSCULAR HEMOGLOBIN 31 pg (25-35); MEAN CORPUSCULAR HGB CONC 33 g/dL (31-37); MEAN CORPUSCULAR VOLUME 93 fL (79-100); MONO # 0.6 x10^3/uL (0.0-1.1); MONO % 9 % (0-9); NEUT # 4.7 x10^3/uL (1.8-7.7); NEUT % 71 % (31-73); PLATELET COUNT 97 x10^3/uL (140-400); RED BLOOD COUNT 3.19 x10^6/uL (4.30-5.70); RED CELL DISTRIBUTION WIDTH 13.9 % (11.5-14.5); WHITE BLOOD COUNT 6.6 x10^3/uL (4.0-11.0)
[2021-05-26 11:59] LABS: CALCIUM 7.5 mg/dL (8.5-10.1); CREATININE 10.4 mg/dL (0.7-1.3); GFR 6.1; POTASSIUM 4.9 mmol/L (3.5-5.1)
[2021-05-26 12:05] LABS: PROTHROMBIN TIME PATIENT 14.3 SEC (11.7-14.0)
[2021-05-26 12:06] LABS: ALBUMIN 3.3 g/dL (3.4-5.0); ALBUMIN/GLOBULIN RATIO 0.8 (1.0-1.7); TOTAL BILIRUBIN 0.5 mg/dL (0.2-1.0); TOTAL PROTEIN 7.4 g/dL (6.4-8.2)
[2021-05-26] MEDS ORDERED: GLYCOPYRROLATE 1 MG/5 ML VIAL. ONE (12:18)
[2021-05-26] MEDS ORDERED: DEXAMETHASONE SOD PHOS 4 MG/ML VIAL ONE (12:18)
[2021-05-26] MEDS ORDERED: NEOSTIGMINE 10 MG/10 ML VIAL. ONE (12:18)
[2021-05-26] MEDS ORDERED: SEVOFLURANE 31 TO 60 MINUTES. IH ONE (12:18)
[2021-05-26] MEDS ORDERED: fentaNYL PF VIAL 100 MCG/2 ML VIAL ONE (12:18)
[2021-05-26] MEDS ORDERED: ONDANSETRON PF 4 MG/2 ML VIAL. ONE (12:18)
[2021-05-26] MEDS ORDERED: ROCURONIUM 50 MG/5 ML VIAL. ONE (12:18)
[2021-05-26] MEDS ORDERED: LIDOCAINE 2% PF 5 ML VIAL. ONE (12:18)
[2021-05-26] MEDS ORDERED: PROPOFOL 10 MG/ML (20ML) VIAL. IV ONE (12:18)
[2021-05-26] MEDS ORDERED: MIDAZOLAM HCL/PF 2 MG/2 ML VIAL. ONE (12:19)
[2021-05-26] MEDS ORDERED: INSULIN LISPRO 100 UNIT/ML 3ML VIAL for OP,RR ONLY. SQ PRN (12:30)
[2021-05-26] MEDS ORDERED: ePHEDrine PF IN SALINE 50 MG/10 ML SYRINGE. IV ONE (14:38)
--- NOTE | 2021-05-26 15:39 | PDOC4 ---
Operative Note Operative Note OPERATIVE NOTE: PREOPERATIVE DIAGNOSIS: Renal failure. POSTOPERATIVE DIAGNOSIS: Renal failure. PROCEDURE: Laparoscopic peritoneal dialysis catheter placement. SURGEON: Helen Pierce MD TEST BORE HELPER: Chinedu Hernández MS4 ANESTHESIA: General. ESTIMATED BLOOD LOSS: 10 mL. SPECIMENS: None. DRAINS: None. COMPLICATIONS: None. INDICATIONS: The patient is a 60-year-old male who was referred for placement of a peritoneal dialysis catheter due to renal failure. The details and risks of surgery were discussed with the patient. The risks of surgery include blee ding, infection, visceral injury, pain, anesthetic risk, potential need for additional surgery or procedure. In addition, the patient is aware of the potential for catheter malfunction or dysfunction and possibility of needing revision, replacement, or removal of the catheter. They understand all this and would like to proceed. DESCRIPTION OF PROCEDURE: The patient was brought to the operating room and placed supine on the operating table. General anesthesia was performed. The abdomen was prepped with ChloraPrep and draped in a standard surgical manner. A small incision was made in the patient's left upper quadrant through which a visualized 5-mm trocar was inserted. A pneumoperitoneum was then created and the laparoscope was introduced. Initial inspection showed no significant adhesions or any other gross abnormalities. Using the placement template, the left abdomen was marked with a planned catheter exit site in the LLQ. A small incision was made to the left of the patient's midline at the marked location for the exit site of the cuff. An 8-mm trocar was inserted through this location. The coiled portion of the lower catheter was then inserted into the pelvis under direct visualization. The cuff was positioned in the rectus musculature. The coiled portion rested well in the inferior mid pelvis. The pneumoperitoneum was then relieved. An incision was then made in the left lower quadrant at the planned exit site. The proximal portion of the catheter was tunnelled subcutaneously to the exit site. The proximal cuff remained in the subcutaneous tissue a few cm away from the exit site. The catheter was then assembled to IV tubing and tested by infusing a liter of saline. The saline passed easily into the abdomen and the bag was placed on the floor. Nearly all of the saline readily was retrieved with prompt flow. The abdominal cavity was then reinsufflated and the laparoscope was reintroduced showing no change in the catheter position and the cuff remained in the rectus. The pneumoperitoneum was relieved and the ports were removed. The catheter was then assembled to the connector tubing as per the dialysis instructions. All the incision sites were closed with 4-0 Monocryl. Steri-Strips and sterile dressing were then applied. The patient tolerated procedure well and was sent to the recovery room in stable condition. At the end of the case all counts were correct. HELEN PIERCE MD May 26, 2021 15:39
[2021-05-26] MEDS ORDERED: OXYC-325 PO (15:42)
--- NOTE | 2021-05-26 15:43 | DISCH ---
DISCHARGE INSTRUCTIONS Condition on Discharge Condition on Discharge: Stable Activity After Discharge Activity Instructions for Disc: Other, see below (No lifting over 20 lbs X 2 weeks) Diet after Discharge Diet after Discharge: Renal Dialysis Follow-Up Follow up with: Dialysis center HELEN CARLISLE MD May 26, 2021 15:43
[2021-05-26] MEDS ORDERED: oxyCODONE/APAP 5/325 1 TAB TABLET PO ONE (16:30)
[2021-05-26 16:40] VITALS: BP 131/68
== END 2021-05-26 18:15 | disposition home or self-care (01) ==
LOC: SURG 11:04
PROVIDERS: ATTEND Surgery
DX: N19 Unspecified kidney failure (principal); I10 Essential (primary) hypertension; E11.9 Type 2 diabetes mellitus without complications; Z79.899 Other long term (current) drug therapy; Z98.890 Other specified postprocedural states; Z72.89 Other problems related to lifestyle; Z88.8 Allergy status to other drugs, medicaments and biological substances; Z99.2 Dependence on renal dialysis
CPT/HCPCS: 36415; 49324; 80053; 82962; 85025; 85610; 85730; A4213; A4314; A4338; A4364; A4930; A6219; A6402; C1752; J0690; J1100; J2250; J2405; J2704; J2710; J3010; J3490; A4223; A4452